=== PATIENT | male | born 1955 | race Caucasian/White ===

== ENCOUNTER 2016-07-03 15:15 | Inpatient (IN) | payer OTHER ==
[~2016-07-03] VITALS: Ht 172.7 cm; Wt 83.9 kg
[2016-07-03] VITALS (7 sets, daily range): BP systolic 116–156; BP diastolic 70–92
[~2016-07-03 15:15] MED LIST: AMLODIPINE BESYL5 M1 PO; DIAZEPAM5 M1 PO; ESCITALOPRAM OX20 MG PO; FOLIC ACID1 M1 PO; GABAPENTIN300 M2 PO; MORPHINE SULFAT15 M3 PO; ONE DAILY MULT1 EAC2 PO; PANTOPRAZOLE SO40 M1 PO; PRAVASTATIN SOD80 M2 PO; TYLENOL325 M1 PO; VITAMIN B-1100 MG PO
--- NOTE | 2016-07-03 15:42 | NUR ---
PT TO TRIAGE WITH C/O UPPER ABD PAIN 10/10 SINCE THIS MORNING, NAUSEA, VOMITING 2 DAYS AGO, DIARRHEA THIS MORNING, AND MIDDLE BACK PAIN. NO OTHER COMPLAINTS. HX OF PANCREATITIS. PT AMB TO ROOM7.
[2016-07-03] MEDS ORDERED: AMLODIPINE BESY10 M1 PO (16:04)
[2016-07-03] MEDS ORDERED: GABAPENTIN300 M2 PO (16:04)
[2016-07-03 16:12] LABS: ABSOLUTE BASOPHIL COUNT 0.1 /CUMM (0.0-0.2); ABSOLUTE EOSINOPHIL COUNT 0.1 /CUMM (0.0-0.7); ABSOLUTE LYMPH COUNT 1.5 /CUMM (1.2-3.4); ABSOLUTE MONOCYTE COUNT 0.7 /CUMM (0.10-0.60); EOSINOPHIL % 0.9 % (0-5); GRANULOCYTE % 77.2 % (42.2-75.2); HEMATOCRIT 43.2 % (42-52); MEAN CORPUSCULAR HGB 31.3 PG (27.0-31.0); MEAN CORPUSCULAR HGB CONC 34.5 G/DL (33.0-37.0); MEAN CORPUSCULAR VOLUME 90.6 FL (80.0-94.0); MEAN PLATELET VOLUME 6.8 FL (7.4-10.4); PLATELET COUNT 273 /CUMM (130-400); RBC DISTRIBUTION WIDTH 13.3 % (11.5-14.5); RED BLOOD CELL CT 4.77 /CUMM (4.70-6.10); WHITE BLOOD CELL COUNT 10.4 /CUMM (4.8-10.8)
--- NOTE | 2016-07-03 16:16 | NUR ---
PRESENTS TO RM 7 61 YR MALE HX OF PANCREATITIS REPORTS ABD PAIN AND VOMITING SINCE 2 AM REPORTS HX OF SAME PATIENT VERY ANXIOUS IV MED LOCK EST 20 LEFT AC B/W OBTAINED SENT SEEN BY ER MD MEDICATED W/ 4 MG ZOFRAN , 4 MG MORPHINE IV 1000 ML NS AT BOLUS
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
--- NOTE | 2016-07-03 16:36 | NUR ---
12/23 PAIN RE-EVAL BY TRISTON BROWN
--- NOTE | 2016-07-03 16:39 | NUR ---
CRITICAL TEST RESULTS [id number] МАРИНА ROCHA TESTS AND RESULTS: LACTIC ACID 3.3 Results received and read back by: CHELLY DAVIS Results received date and time: 07/03/16 4021 The following provider was notified of the results, and read the results back: MANUELA PEREIAR MD Notified date and time: 07/03/16 at 7366
--- NOTE | 2016-07-03 16:47 | NUR ---
PATIENT GIVEN; 2ND LITER NS 1000 ML AT BOLUS 5 MG VALIUM IVP 2 MG MORPHINE IVP
--- NOTE | 2016-07-03 16:53 | NUR ---
TO CT SCAN
--- NOTE | 2016-07-03 17:27 | NUR ---
QUEENIE GOLDSTEIN MD
--- NOTE | 2016-07-03 17:41 | CT SCAN REPORT ---
EXAMINATION: CT ABDOMEN AND PELVIS WITH CONTRAST CLINICAL INFORMATION: Elevated lipase. Elevated lactic acid. COMPARISON: CT abdomen and pelvis 03/17/2016. TECHNIQUE: Multidetector volumetric imaging was performed of the abdomen and pelvis before and after the IV administration of 94 mL of Optiray 320 intravenous contrast. Sagittal and coronal reformatted images were obtained on the technologist's workstation. DLP: 474 mGy-cm FINDINGS: LUNG BASES: Mild dependent parenchymal changes. Small hiatal hernia. LIVER, GALLBLADDER, AND BILIARY TREE: Decreased hepatic radiodensity consistent with steatosis. Unchanged subcentimeter enhancing lesion within Couinaud's segment 6, nonspecific and possibly representing a hemangioma. No new hepatic lesion. The common bile duct measures 0.8 cm. No evidence of cholelithiasis or choledocholithiasis. PANCREAS: There is diffuse peripancreatic stranding. Fluid tracks along the pararenal space along the anterior aspect of the left perinephric space. No discrete/drainable fluid collection. No pancreatic ductal dilatation. No discrete pancreatic mass lesion. No areas of pancreatic nonenhancement to diagnose necrosis. SPLEEN: Unremarkable. ADRENAL GLANDS: Unremarkable. KIDNEYS AND URETERS: Bilateral nephrograms are symmetric without hydronephrosis. Hypodense renal lesions are again noted, most consistent with cysts. No renal or ureteral calculi. No new suspicious renal mass. BLADDER: Unremarkable. GASTROINTESTINAL TRACT: Bowel gas pattern is nonobstructive. No evidence of acute bowel inflammation. Scattered colonic diverticula without evidence of diverticulitis. The appendix is normal. ABDOMINAL WALL: No significant hernia is appreciated. LYMPH NODES: No pathologically enlarged lymph nodes are demonstrated. VASCULAR: Scattered atherosclerotic calcification. The splenic vein is patent. PELVIC VISCERA: Unremarkable. OSSEOUS STRUCTURES: No acute osseous abnormalities. Left-sided L5 pars defect. Degenerative disc disease at L5-S1 with vacuum phenomenon. IMPRESSION: Findings consistent with pancreatitis. Mildly dilated common bile duct without visualized choledocholithiasis or cholelithiasis. Nonacute findings as described above.
--- NOTE | 2016-07-03 18:10 | NUR ---
INFUSION COMPLETED PATIENT REQUEST TO SPEAK W/ MD
--- NOTE | 2016-07-03 18:34 | NUR ---
PATIENT VOIDED 280 ML URINE IV #4 1000 ML NS
--- NOTE | 2016-07-03 18:59 | NUR ---
RE-EVAL BY ER MD DIAZ PATIENT MEDICATED W/ ATIVAN AND DIALUDID IV PATIENT REMAINS ALERT ORIENTED STILL C/O PAIN NO VOMITING , NO AMS MONITOR REMAINS ST W/O ECTOPY
--- NOTE | 2016-07-03 19:20 | NUR ---
EVAL BY HOUSE STAFF
[2016-07-03] MEDS ORDERED: VALIUM5 M2 PO (19:24)
--- NOTE | 2016-07-03 19:25 | RADIOLOGY REPORT ---
EXAMINATION: XR CHEST PORTABLE CLINICAL INFORMATION: Nausea and vomiting. Shortness of breath requiring oxygen. COMPARISON: None. TECHNIQUE: Portable AP view of the chest was obtained. FINDINGS: The lungs are mildly hypoexpanded. Question mild left basilar opacification. No pulmonary edema, pleural effusion, or pneumothorax. No mediastinal widening. No acute osseous abnormalities. IMPRESSION: Mildly hypoexpanded lungs. Questionable left basilar opacification may represent atelectasis or other consolidation.
--- NOTE | 2016-07-03 19:41 | Admission Certification ---
Admission Certification Certification Statement - As attending physician, I certify that at the time of - admission, based on clinical presentation, severity of - symptoms, need for further diagnostic testing and - therapeutic interventions, and risk of adverse outcomes - without in-hospital treatment, in my clinical assessment, - this patient requires an acute hospital stay for a minimum - of two nights or longer. I have also considered psychsocial - factors such as support system, advanced age, financial - issues, cognitive issues, and failed out-patient treatments, - past re-admission history, safety of patient, and lack of - compliance as applicable. Specific rationale supporting this admission is: Acute pancreatitis, alcohol withdrawal.
--- NOTE | 2016-07-03 20:10 | NUR ---
PT GOING TO ROOM 21602.
--- NOTE | 2016-07-03 20:24 | NUR ---
REPORT GIVEN TO FLOOR PATIENT STABLE ALERT WHEN WOKEN MONITOR ST W/O ECTOPY
[2016-07-03] MEDS ORDERED: BYSTOLIC5 M1 PO (21:02)
[2016-07-03] MEDS ORDERED: RISPERIDONE1 M1 PO (21:02)
--- NOTE | 2016-07-03 21:15 | NUR ---
RECEIVED PATIENT FROM ED. DROWSY BUT AROUSABLE (WAS MEDICATED IN ED). VSS, TACHY, ON 2L NC. CIWA ZERO AT PRESENT. ABODMEN SOFT, COMPLAINING OF PAIN TO LOWER ABDOMEN. NO NAUSEA AT THIS TIME. PT IS NPO. NO HISTORY OF FALLS, UP TO DATE ON FLU VACCINE. ORIENTED TO 2NB, CALL RUBIO WITHIN REACH
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
--- NOTE | 2016-07-04 04:04 | NUR ---
NURSING NOTE: PT C/O PAIN, PT STATES HE IS HAVING STABBING PAIN TO HIS STOMACH. PT OFFERED PO TYLENOL AT THIS TIME BECAUSE IT IS TOO SOON FOR ANOTHER DOSE OF MORPHINE. RESIDENTIAL REAL ESTATE ASSISTANT 176 MADE AWARE AND DOES NOT WISH TO ORDER ANY ADDITIONAL PAIN MEDS AT THIS TIME. WILL GIVE PT MORPHINE WHEN NEXT DUE. WILL CONTINUE TO MONITOR.
--- NOTE | 2016-07-04 05:30 | NUR ---
NURSING NOTE: PT STATES "I CAN'T GO ON LIKE THIS, I AM ABOUT TO JUMP OUT THIS WINDOW OVER HERE I AM IN SO MUCH PAIN". PT WAS MEDICATED WITH IV MORPHINE AND IV TYLENOL AN HOUR BEFORE. PT STATES "I GOT BETTER CARE WHEN I WAS HERE IN MARCH". CORRECTIONAL MEDICINE PHYSICIAN 176 WAS CALLED AND NOTIFIED THAT PATIENT IS STILL C/O PAIN 10/10 W/ NO RELIEF AND PT ASKING MD TO COME SEE HIM. CORRECTIONAL MEDICINE PHYSICIAN CAME TO SPEAK WITH PATIENT. PT STILL VERY AGITATED. CIWA 16, 2 MG IV IATIVAN GIVEN. SCHEDULED PO ATIVAN HELD PER CORRECTIONAL MEDICINE PHYSICIAN 176 REQUEST UNTIL "PATIENT IS MORE CALM" WARM PACK GIVEN. EMOTIONAL SUPPORT GIVEN. WILL CONTINUE TO MONITOR.
[2016-07-04 08:00] VITALS: BP 140/90
--- NOTE | 2016-07-04 08:13 | PN- Housestaff ---
Subjective Follow-up For: - pancreatitis Review of Systems Constitutional: Reports: see HPI. Objective Last 24 Hrs of Vital Signs/I&O Vital Signs Date Time Temp Pulse Resp B/P Pulse O2 O2 Flow FiO2 Ox Delivery Rate 07/04 0000 Nasal 2.0L Cannula 07/03 2359 97.6 117 20 156/92 92 07/03 2330 97.6 117 20 156/92 07/03 2106 97 Nasal 2.0L Cannula 07/03 2104 97.8 112 17 118/92 93 Nasal 2.0L Cannula 07/03 202 97.8 106 18 134/78 07/03 1919 97.8 108 18 138/70 07/03 1833 104 18 132/80 96 Nasal 3.0L Cannula 07/03 1733 105 20 137/80 95 Nasal 3.0L Cannula 07/03 1713 106 18 133/80 95 Nasal 3.0L Cannula 07/03 1648 97.7 106 18 116/80 07/03 1648 97.7 106 18 116/80 95 Nasal 2.0L Cannula 07/03 1620 98.0 108 18 128/86 07/03 1616 108 20 128/78 94 Room Air 07/03 1536 98.7 130 20 137/82 95 Room Air Intake & Output 07/04 1600 07/04 0800 07/04 0000 Intake Total 1200 4300 Output Total 800 280 Balance 400 4020 Intake, IV 1200 4300 Intake, Oral 0 Output, Urine 800 280 Patient 158 lb Weight Physical Exam General Appearance: No Acute Distress Current Medications: Current Medications Sig/Fabiola Start time Last Medication Dose Route Stop Time Status Admin Acetaminophen 1,000 MG ONCE ONE 07/04 0415 DC 07/04 N/A 1 UNIT IV 07/04 0429 0445 Acetaminophen 650 MG Q6-PRN PRN 07/035 AC PO Amlodipine Besylate 10 MG DAILY 07/04 1000 AC PO Diazepam 0 .STK-MED ONE 07/03 1641 DC .ROUTE Diazepam 5 MG ONCE ONE 07/03 1630 DC 07/03 IV 07/03 1631 1643 Enoxaparin Sodium 40 MG DAILY 07/04 1000 AC SC Escitalopram Oxalate 20 MG DAILY 07/04 1000 AC PO Folic Acid 1 MG DAILY 07/04 1000 CAN PO Folic Acid 1 MG DAILY 07/04 1000 AC PO Gabapentin 300 MG DAILY 07/04 1000 AC PO Gemfibrozil 600 MG BID 07/03 2300 CAN PO Heparin Sodium 5,000 UNIT Q8 07/03 2200 CAN (Porcine) SC Hydromorphone HCl 0 .STK-MED ONE 07/03 1851 DC .ROUTE Hydromorphone HCl 1 MG ONCE ONE 07/03 1845 DC 07/03 IV 07/03 1846 1857 Hydromorphone HCl 0 .STK-MED ONE 07/03 1817 DC .ROUTE Hydromorphone HCl 0.4 MG ONCE ONE 07/03 1800 DC 07/03 IV 07/03 1801 1832 Lactated Ringer's 1,000 ML Q6H 07/03 2145 AC 07/04 IV 0455 Lactated Ringer's 1,000 ML Q6H 07/03 2100 DC IV Lorazepam 2 MG Q6 07/04 0600 AC PO Lorazepam 0 .STK-MED ONE 07/03 1850 DC .ROUTE Lorazepam 0 Q1P PRN 07/03 1845 AC 07/04 IV 0637 Magnesium Oxide 400 MG ONE ONE 07/03 2230 DC 07/03 PO 07/03 2231 2339 Morphine Sulfate 2 MG Q6-PRN PRN 07/03 2215 AC 07/04 IV 0451 Morphine Sulfate 2 MG Q4P PRN 07/03 2100 DC IV Morphine Sulfate 2 MG ONCE ONE 07/03 1645 DC 07/03 IV 07/03 1646 1643 Morphine Sulfate 0 .STK-MED ONE 07/03 1640 DC .ROUTE Morphine Sulfate 4 MG ONCE ONE 07/03 1600 DC 07/03 IV 07/03 1601 1607 Morphine Sulfate 0 .STK-MED ONE 07/03 1553 DC .ROUTE Multivitamins 1 TAB DAILY 07/04 1000 CAN PO Multivitamins 1 TAB DAILY 07/04 1000 AC Therapeutic PO Nebivolol 5 MG DAILY 07/04 1000 AC PO Omeprazole 40 MG DAILY AC 07/04 0700 CAN PO Ondansetron HCl 4 MG ONCE ONE 07/03 1600 DC 07/03 IV 07/03 1601 1607 Ondansetron HCl 0 .STK-MED ONE 07/03 1554 DC .ROUTE Pantoprazole Sodium 40 MG DAILY 07/03 2230 AC 07/03 IV 2339 Pravastatin Sodium 80 MG 1700 07/04 1700 CAN PO Risperidone 1 MG BID 07/03 2200 AC 07/03 PO 2339 Sodium Chloride 1,000 ML Q6H 07/03 2145 CAN IV Sodium Chloride 1,000 ML BOLUS ONE 07/03 1630 DC 07/03 IV 07/03 1729 1643 Sodium Chloride 1,000 ML BOLUS ONE 07/03 1600 DC 07/03 IV 07/03 1659 1607 Thiamine HCl 100 MG DAILY 07/04 1000 CAN PO Thiamine HCl 100 MG DAILY 07/04 1000 AC PO Trimethobenzamide HCl 200 MG 4 TIMES/DAY PRN 07/03 2145 AC IM Last 24 Hrs of Lab/Felix Results Last 24 Hrs of Labs/Mics: Laboratory Tests 07/04/16 0640: Sodium Pending, Potassium Pending, Chloride Pending, Carbon Dioxide Pending, Anion Gap Pending, BUN Pending, Creatinine Pending, BUN/Creatinine Ratio Pending , Magnesium Pending, Total Bilirubin Pending, Direct Bilirubin Pending, AST Pending, ALT Pending, Alkaline Phosphatase Pending, Total Protein Pending, Albumin Pending, Triglycerides Pending, Cholesterol Pending, LDL Cholesterol, Calc Pending, HDL Cholesterol Pending, Cholesterol/HDL Ratio Pending, CBC w Diff Pending, WBC Pending, RBC Pending, Hgb Pending, Hct Pending, MCV Pending, MCH Pending, RDW Pending, Plt Count Pending, MPV Pending, PUBS MCHC Pending 07/03/164: Troponin I < 0.01 07/03/161934: Urine Opiates Screen > 4000.00 H, Methadone Screen 53, Barbiturate Screen < 60, Ur Phencyclidine Scrn < 6.00, Amphetamines Screen < 100, U Benzodiazepines Scrn 499 H, Urine Cocaine Screen < 50, Urine Cannabis Screen 17.80, Urine Color YEL, Urine Clarity CLEAR, Urine pH 6.0, Ur Specific [place] 1.010, Urine Protein NEG, Urine Ketones NEG, Urine Nitrite NEG, Urine Bilirubin NEG, Urine Urobilinogen 0.2, Ur Leukocyte Esterase NEG, Ur Microscopic SEDIMENT EXAMINED, Urine RBC 50- 75 H, Urine WBC RARE, Ur Epithelial Cells RARE, Hyaline Casts FEW H, Granular Casts RARE H, Urine Hemoglobin LARGE H, Urine Glucose NEG 07/03/16 1930: Lactic Acid 1.0 07/03/16 1600: Anion Gap 17 H, Estimated GFR > 60, BUN/Creatinine Ratio 15.0, Glucose 107 H, Lactic Acid 3.3 H, Calcium 9.2, Magnesium 1.7, Total Bilirubin 1.1, AST 129 H, ALT 61, Alkaline Phosphatase 140 H, Troponin I < 0.01, Total Protein 7.9, Albumin 4.2, Globulin 3.7, Albumin/Globulin Ratio 1.1, Triglycerides 1363 H, Cholesterol 319 H, LDL Cholesterol, Calc ND, HDL Cholesterol 62 H, Cholesterol /HDL Ratio 5 H, Lipase 559 H, CBC w Diff NO MAN DIFF REQ, RBC 4.77, MCV 90.6, MCH 31.3 H, RDW 13.3, MPV 6.8 L, Gran % 77.2 H, Lymphocytes % 14.5 L, Monocytes % 6.4, Eosinophils % 0.9, Basophils % 1.0, Absolute Granulocytes 8.0 H, Absolute Lymphocytes 1.5, Absolute Monocytes 0.7 H, Absolute Eosinophils 0.1 , Absolute Basophils 0.1, PUBS MCHC 34.5, Serum Alcohol < 10.0
[2016-07-04 08:45] LABS: ABSOLUTE BASOPHIL COUNT 0 /CUMM (0.0-0.2); ABSOLUTE EOSINOPHIL COUNT 0 /CUMM (0.0-0.7); ABSOLUTE LYMPH COUNT 0.7 /CUMM (1.2-3.4); ABSOLUTE MONOCYTE COUNT 0.6 /CUMM (0.10-0.60); BASOPHIL % 0.3 % (0.0-2.0); EOSINOPHIL % 0.5 % (0-5); WHITE BLOOD CELL COUNT 6.4 /CUMM (4.8-10.8)
[2016-07-04 08:58] LABS: GRANULOCYTE % 78.4 % (42.2-75.2); MEAN CORPUSCULAR HGB 31.2 PG (27.0-31.0); MEAN CORPUSCULAR HGB CONC 34.2 G/DL (33.0-37.0); MEAN CORPUSCULAR VOLUME 91.1 FL (80.0-94.0); PLATELET COUNT 195 /CUMM (130-400); RBC DISTRIBUTION WIDTH 13.9 % (11.5-14.5); RED BLOOD CELL CT 3.91 /CUMM (4.70-6.10)
[2016-07-04 09:01] LABS: HEMATOCRIT 35.6 % (42-52)
[2016-07-04 09:19] VITALS: BP 144/90
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
--- NOTE | 2016-07-04 11:31 | PN- Att Addend ---
Attending Addendum Attending Brief Note Patient seen and examined. Lying in bed and not in acute distress. Admitted overnight for alcohol related pancreatitis. Denies nausea vomiting. Reports abdominal discomfort is improved with analgesic medication. Tolerating liquid diet. Vital Signs Date Time Temp Pulse Resp B/P Pulse O2 O2 Flow FiO2 Ox Delivery Rate 07/04 1049 112 140/90 07/04 0928 124 140/90 07/04 0919 98.5 124 20 144/90 92 Nasal 2.0L Cannula 07/04 0000 Nasal 2.0L Cannula 07/03 2359 97.6 117 20 156/92 92 07/03 2330 97.6 117 20 156/92 07/03 2106 97 Nasal 2.0L Cannula 07/03 2104 97.8 112 17 118/92 93 Nasal 2.0L Cannula 07/03 2025 97.8 106 18 134/78 07/03 1919 97.8 108 18 138/70 07/03 1833 104 18 132/80 96 Nasal 3.0L Cannula 07/03 1733 105 20 137/80 95 Nasal 3.0L Cannula 07/03 1713 106 18 133/80 95 Nasal 3.0L Cannula 07/03 1648 97.7 106 18 116/80 02 1648 97.7 106 18 116/80 95 Nasal 2.0L Cannula 07/03 1620 98.0 108 18 128/86 07/03 1616 108 20 128/78 94 Room Air 07/03 1536 98.7 130 20 137/82 95 Room Air Gen. appearance: Well-developed, not in acute distress Heart: S1-S2 regular Lungs: Good entry bilaterally, clear to auscultation Abdomen: Soft, nontender with normal bowel sounds Extremities: No pedal edema Skin: Intact with no rashes Neurologic: No focal deficits. No tremors. Problems: 1. Pancreatitis 2. Hypertriglyceridemia 3. Alcohol abuse Plan: -Continue IV fluids. Continue current pain regimen. -Continue current CIWA protocol. Overnight he required 5 mg total of Ativan in addition to his standing dose. -Triglyceride levels have improved overnight with hydration. In March triglyceride level was 176. Overnight levels have decreased from 1363 to 473. Recommend repeating levels prior to discharge and basing decision for medication therapy on those levels. -He will need evaluation by the social service manager prior to discharge
--- NOTE | 2016-07-04 11:59 | NUR ---
LATE ENTRY: LOVENOX ON ORDER FOR PT YET PT HAS HX OF BRAIN AND CAROTID ANEURYSM. PER PT, HE WAS TOLD NOT TO RECEIVE ANY "BLOOD THINNERS." MOD DR. VEGAS CONTACTED. SEE D/C OF MED. ALPS IN USE. WILL CONT TO MONITOR.
[2016-07-04 16:49] VITALS: BP 138/94
[2016-07-05] VITALS: BP 152/88
[2016-07-05 00:25] VITALS: BP 152/88
[2016-07-05 03:00] VITALS: BP 150/90
[2016-07-05 04:00] VITALS: BP 150/90
--- NOTE | 2016-07-05 05:17 | NUR ---
LATE ENTRY: PT INCREASINGLY AGITATED AND ANXIOUS. KEPT GETTING OOB AND PULLING ON IV LINE. PT SAFETY MONITOR ORDERED FOR SAFTEY.
--- NOTE | 2016-07-05 07:45 | PN- Housestaff ---
MACI BROWN,XIOMARA 07/05/16 0744: Subjective Follow-up For: Pancreatitis 2/2 alcohol, hypertriglycemia Complaints: pain scale (0-10) (8/10) Subjective: Pt c/o Rt. upper / epigastric cancer radiating to back, 8/10 when moving, 7/10 while resting. He was tolerating breakfast this morning, clear liquid diet. Review of Systems Constitutional: Reports: malaise. Denies: chills, diaphoresis, fever, weakness. EENTM: Reports: no symptoms. Cardiovascular: Reports: no symptoms. Respiratory: Reports: no symptoms. Gastrointestinal: Reports: abdominal pain, nausea. Denies: diarrhea, vomiting. Genitourinary: Reports: no symptoms. Musculoskeletal: Reports: back pain. Skin: Reports: no symptoms. Neurological/Psychological: Reports: anxiety, confusion. Hematologic/Endocrine: Reports: no symptoms. Objective Last 24 Hrs of Vital Signs/I&O Vital Signs Date Time Temp Pulse Resp B/P Pulse O2 O2 Flow FiO2 Ox Delivery Rate 07/05 1121 96 130/86 07/05 1120 96 130/86 07/05 0817 97.9 100 20 140/80 93 Nasal 2.0L Cannula 07/05 0400 97.9 95 20 150/90 07/05 0300 98.2 99 20 150/90 07/05 0025 98.0 107 20 152/88 93 07/05 0000 Nasal 2.0L Cannula 07/05 0000 99.1 96 20 152/88 07/04 1649 98.2 107 24 138/94 94 Room Air 07/04 1412 Nasal 2.0L Cannula Intake & Output 07/05 1600 07/05 0800 07/05 0000 Intake Total 1320 Output Total 400 825 700 Balance -400 495 -700 Intake, IV 1200 Intake, Oral 120 Output, Urine 400 825 700 Physical Exam General Appearance: Oriented X3, Cooperative, No Acute Distress, pt was sleeping in the bed, but awake with conversation Skin: No Rashes, No Breakdown, No Significant Lesion HEENT: PERRLA, EOMI, Mucous Membr. moist/pink Neck: Supple, No JVD, No LAD Cardiovascular: Regular Rate, Normal S1, Normal S2, No Murmurs Lungs: Clear to Auscultation, Normal Air Movement Abdomen: Normal Bowel Sounds, Soft, RUQ tenderness +, no rTd, obese abdomen Neurological: Normal Speech, Strength at 5/5 X4 Ext, Normal Tone, Sensation Intact Extremities: No Cyanosis, No Edema, Normal Pulses Vascular: Normal Pulses, Pulses Symmetrical Current Medications: Current Medications Sig/Fabiola Start time Last Medication Dose Route Stop Time Status Admin Acetaminophen 650 MG Q6-PRN PRN 07/03 2115 AC PO Amlodipine Besylate 10 MG DAILY 07/04 1000 AC 07/05 PO 1120 Escitalopram Oxalate 20 MG DAILY 07/04 1000 AC 07/05 PO 1119 Folic Acid 1 MG DAILY 07/04 1000 AC 07/05 PO 1119 Gabapentin 300 MG DAILY 07/04 1000 AC 07/05 PO 1120 Lactated Ringer's 1,000 ML Q6H 07/03 2145 AC 07/05 IV 0658 Lorazepam 2 MG .STK-MED ONE 07/05 0245 DC IM 07/05 0246 Lorazepam 2 MG Q6 07/04 0600 AC 07/05 PO 1121 Lorazepam 0 Q1P PRN 07/03 1845 AC 07/05 IV 0256 Morphine Sulfate 2 MG Q6-PRN PRN 07/03 2215 AC 07/05 IV 0652 Multivitamins 1 TAB DAILY 07/04 1000 AC 07/05 Therapeutic PO 1120 Nebivolol 5 MG DAILY 07/04 1000 AC 07/05 PO 1121 Pantoprazole Sodium 40 MG DAILY 07/03 2230 AC 07/05 IV 1121 Risperidone 1 MG BID 07/03 2200 AC 07/05 PO 1120 Thiamine HCl 100 MG DAILY 07/04 1000 AC 07/05 PO 1121 Trimethobenzamide HCl 200 MG 4 TIMES/DAY PRN 07/03 2145 AC IM Last 24 Hrs of Lab/Felix Results Last 24 Hrs of Labs/Mics: Laboratory Tests 07/05/16 0650: Anion Gap 9, Estimated GFR > 60, BUN/Creatinine Ratio 10.0, Total Bilirubin 0.9, Direct Bilirubin 0.5 H, AST 34, ALT 29, Alkaline Phosphatase 94, Total Protein 5.8 L, Albumin 3.0 L Orders CIWA Score (last 24 hrs): 16-6-4 Lines/Diet/Fluids Lines: peripheral lines Assessment/Plan Assessment: 61 yo male with pmh of chronic alcohol abuse complicated by multiple episodes of pancreatitis, HTN, brain aneurysm (2011), viral meningitis (2012), anxiety/ depression, renal cysts, who was previously admitted for acute pancreatitis in Mar 2016, was brought in with a chief complaint of epigastric abdominal pain radiating to the back 3 days ago with nausea/nonbloody vomiting/diarrhea. reports that patient started drinking soon after he was discharged in March. Drinks 4-5 glasses of rum/beer/wine everyday, last drink 7 pm one day prior to admission. Quit smoking Feb 2016, denies illicit drug use. 1. Acute pancreatitis likely secondary to alcohol abuse: No fever/leukocytosis. BISAP 0. CT suggests pancreatitis with stranding. LR was continued from admission, decreased from 100cc/to 75cc/hr now. On IV morphine 2mg q6prn for pain control, pt is not well controlled, will increase to q4prn. po/IV ativan for alcohol withdrawal. NPO for now to check on RUQ abdomen to evaluate mildly dilated CBD. 2. Hypertriglyemia: TG was improved from 1363 to 473. Will repeat lipid panel before discharge. 3. Alcohol abuse & depression: Patient is on po ativan 2mg q6 and IV ativan CIWA protocol requiring 14mg total ativan. CIWA 16-6-4. Psychiatry consult is appreciated. According to psy note, the patient reports a history of depressive symptomatology including poor energy, poor concentration, feelings of hopelessness and worthlessness, disrupted sleep, dating back to about 3 or 4 years ago when his aneurysms were diagnosed. He reports at that time undergoing treatment with Dr. Haq, but he has not seen Dr. Haq since February 2016. He continues to be prescribed antidepressant medication by his primary care physician. Patient denies current SI or HI. Continue lexapro and risperidone for now. Pt is on sitter for risky ambulation. 4. HTN: BP stable. C/w nebivolol, norvasc home dose 5. Transaminitis: resolved. 6. Hypokalemia: 3.1, will replete potassium with Mg. DVT ppx: ALPS, full code. Problem List: 1. Pancreatitis, acute 2. Depression 3. Alcohol withdrawal Pain Ratin Pain Location: epigastric pain Pain Goal: Pain 7 or less Pain Plan: IV morphine 2mg q6 prn -> q4prn Tomorrow's Labs & Rationales: BEP, mg DVT/Prophylaxis: mechanical Discharge Plan Stable for Discharge? No ANDRA GONZALEZ MD 07/05/16 1347: Attending MD Review Statement Attending Statement Attending MD Statement: examined this patient, discuss w/resident/PA/ARC AND GAS WELDER, agreed w/resident/PA/ARC AND GAS WELDER, reviewed EMR data (avail), discussed with nursing, amended to note Attending Assessment/Plan: The patient was seen and discussed with house staff. Agree with plan of care as outlined.
[2016-07-05 08:17] VITALS: BP 140/80
--- NOTE | 2016-07-05 17:06 | ULTRASOUND REPORT ---
EXAMINATION: US ABDOMEN LIMITED CLINICAL INFORMATION: Bilateral dilatation seen on CT scan. Evaluate for common bile duct stone. COMPARISON: CT scan of the abdomen and pelvis dated 07/03/2016. Ultrasound of the abdomen dated 03/17/2016. TECHNIQUE: Real-time imaging of the right upper quadrant abdominal viscera. FINDINGS: PANCREAS: The pancreatic body and portions of the head and tail are visualized and appear echogenic, suggesting pancreatic edema. There is surrounding mild peripancreatic edema noted. Remainder of the pancreas is not seen due to shadowing by bowel gas. LIVER: Diffusely increased liver echogenicity is noted, consistent with hepatic steatosis. The liver demonstrates normal size, contour and echogenicity. No focal lesion or intrahepatic biliary duct dilatation. GALLBLADDER: Normal. The gallbladder is physiologically distended without evidence of stones, sludge, polyps, wall thickening or pericholecystic fluid. COMMON BILE DUCT: Dilated in caliber measuring 0.9 cm in diameter. Visualized portions of the common bile duct are unremarkable otherwise with no filling defect seen. Distal common bile duct in the pancreatic head is not visualized. RIGHT KIDNEY: There is a 1.8 x 1.0 x 1.4 cm parapelvic cyst in the upper pole of the right kidney. Several other right renal cysts seen on CT scan are not appreciated on this ultrasound No hydronephrosis. No renal calculi. The kidney measures 12.0 cm in maximum dimension. FREE FLUID: None. IMPRESSION: 1. Above findings are consistent with acute pancreatitis with mild peripancreatic stranding seen. Findings correspond to the CT scan findings. 2. Dilated common bile duct is visualized, similar to prior CT scan. In the visualized portions of the common bile duct, no evidence of choledocholithiasis is seen. 3. No gallstones. 4. Only one of the several previously demonstrated renal cysts is seen on this exam.
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
[2016-07-05 21:26] VITALS: BP 116/70
[2016-07-06] VITALS: BP 116/70
--- NOTE | 2016-07-06 | NUR ---
NURSING NOTE: PT ON 1.5 MG ATIVAN TAPER. PT REFUSED HIS MIDNIGHT ATIVAN. CIWA SCORE ZERO. PT CALM AND COOPERATIVE. PSM AT BEDSIDE WILL CONTINUE TO MONITOR.
--- NOTE | 2016-07-06 07:58 | PN- Housestaff ---
MACI BROWN,XIOMARA 07/06/16 0752: Subjective Follow-up For: Acute pancreatitis 2/2 alcohol Hypertriglycemia Dilated bile duct Depression Complaints: pain scale (0-10) (8/10) Subjective: He was eating breakfast this morning, but c/o abdominal pain radiating to back with 8/10 pain. He denies any nausea/vomiting, chest pain/shortness of breath. He has chronic headache after brain aneurysm clipping for 2 years. 1:1 sitter is present at bedside for his risky ambulation. He wants to follow up psychiatry after discharge for depression and alcohol abuse. Review of Systems Constitutional: Denies: chills, fever, weakness. EENTM: Reports: no symptoms. Cardiovascular: Denies: chest pain, palpitations, peripheral edema, syncope. Respiratory: Denies: cough, short of breath, sputum production, wheezing. Gastrointestinal: Reports: abdominal pain, bloating. Denies: diarrhea, nausea, vomiting. Genitourinary: Reports: no symptoms. Musculoskeletal: Reports: back pain. Skin: Reports: no symptoms. Neurological/Psychological: Reports: no symptoms. Hematologic/Endocrine: Reports: no symptoms. Objective Last 24 Hrs of Vital Signs/I&O Vital Signs Date Time Temp Pulse Resp B/P Pulse O2 O2 Flow FiO2 Ox Delivery Rate 07/06 0002 98.3 98 18 89 Room Air 07/06 0000 Nasal 2.5L Cannula 07/06 0000 98.3 98 18 116/70 07/05 2126 98.3 101 20 116/70 91 Nasal 1.0L Cannula 07/05 1121 96 130/86 07/05 1120 96 130/86 07/05 0817 97.9 100 20 140/80 93 Nasal 2.0L Cannula 07/05 0800 94 Nasal 1.5L Cannula Intake & Output 07/06 0800 07/06 0000 07/05 1600 Intake Total 225 1080 Output Total 800 Balance 225 280 Intake, IV 225 600 Intake, Oral 480 Output, Urine 800 Patient 185 lb Weight Physical Exam General Appearance: Alert, Oriented X3, Cooperative, Mild Distress Skin: No Rashes, No Breakdown, No Significant Lesion HEENT: Atraumatic, PERRLA, EOMI, Mucous Membr. moist/pink Neck: Supple, No JVD, No LAD Lymphatic: Cervical nl Cardiovascular: Regular Rate, Normal S1, Normal S2, No Murmurs Lungs: Clear to Auscultation, Normal Air Movement Abdomen: Normal Bowel Sounds, Soft, Tenderness on RUQ, LUQ, no rTd Neurological: Normal Speech, Strength at 5/5 X4 Ext, Normal Tone, Sensation Intact, Cranial Nerves 3-12 NL Extremities: No Edema, Normal Pulses, No Tenderness/Swelling Vascular: Normal Pulses, Pulses Symmetrical Current Medications: Current Medications Sig/Fabiola Start time Last Medication Dose Route Stop Time Status Admin Acetaminophen 650 MG Q6-PRN PRN 07/03 2115 AC PO Amlodipine Besylate 10 MG DAILY 07/04 1000 AC 07/05 PO 1120 Escitalopram Oxalate 20 MG DAILY 07/04 1000 DC 07/05 PO 1119 Folic Acid 1 MG DAILY 07/04 1000 AC 07/06 PO 0921 Gabapentin 300 MG DAILY 07/04 1000 AC 07/06 PO 0922 Lactated Ringer's 1,000 ML Q6H 07/03 2145 AC 07/06 IV 0602 Lorazepam 1.5 MG Q6 07/05 2359 AC 07/06 PO 0602 Lorazepam 2 MG Q6 07/04 0600 DC 07/05 PO 1714 Lorazepam 0 Q1P PRN 07/03 1845 AC 07/05 IV 0256 Magnesium Sulfate 1 GM ONCE ONE 07/05 1345 DC 07/05 Dextrose/Water 100 ML IV 07/05 1744 1622 Morphine Sulfate 2 MG Q6P PRN 07/06 1000 AC IV Morphine Sulfate 2 MG Q4P PRN 07/06 0000 DC 07/06 IV 0728 Morphine Sulfate 2 MG Q6-PRN PRN 07/03 2215 DC 07/05 IV 0652 Multivitamins 1 TAB DAILY 07/04 1000 AC 07/06 Therapeutic PO 0921 Nebivolol 5 MG DAILY 07/04 1000 AC 07/05 PO 1121 Oxycodone HCl 5 MG Q6P PRN 07/06 1000 AC PO Pantoprazole Sodium 40 MG DAILY 07/03 2230 AC 07/06 IV 0921 Patient Medication 1 UNIT 0000 07/06 0000 DC 07/05 Teaching ED 07/06 0001 2339 Potassium Chloride 40 MEQ ONCE ONE 07/06 0800 DC 07/06 PO 07/06 0801 0922 Potassium Chloride 60 MEQ 1700 07/05 1700 DC 07/05 PO 07/05 1701 1627 Potassium Chloride 10 MEQ Q1H 07/05 1345 DC 07/05 IV 07/05 1446 2206 Risperidone 1 MG BID 07/03 2200 DC 07/05 PO 1120 Thiamine HCl 100 MG DAILY 07/04 1000 AC 07/06 PO 0921 Trimethobenzamide HCl 200 MG 4 TIMES/DAY PRN 07/03 2145 AC IM Last 24 Hrs of Lab/Felix Results Last 24 Hrs of Labs/Mics: Laboratory Tests 07/06/16 0655: Anion Gap 8, Estimated GFR > 60, BUN/Creatinine Ratio 7.1, Magnesium 2.0, Total Bilirubin Pending, Direct Bilirubin Pending, AST Pending, ALT Pending, Alkaline Phosphatase Pending, Total Protein Pending, Albumin Pending Orders CIWA Score (last 24 hrs): 0-0-0-0-0 Lines/Diet/Fluids Lines: peripheral lines Assessment/Plan Assessment: 61 yo male with pmh of chronic alcohol abuse complicated by multiple episodes of pancreatitis, HTN, brain aneurysm (2011), viral meningitis (2012), anxiety/ depression, renal cysts, who was previously admitted for acute pancreatitis in Mar 2016, was brought in with a chief complaint of epigastric abdominal pain radiating to the back 3 days ago with nausea/nonbloody vomiting/diarrhea. reports that patient started drinking soon after he was discharged in March. Drinks 4-5 glasses of rum/beer/wine everyday, last drink 7 pm one day prior to admission. Quit smoking Feb 2016, denies illicit drug use. 1. Acute pancreatitis likely secondary to alcohol abuse: No fever/leukocytosis. BISAP 0. CT suggests pancreatitis with stranding. LR was continued from admission, decreased from 100cc/to 75cc/hr now for borderline BP. According to patient, pain is not well controlled. will add to po oxycodone q6prn with IV morphine 2mg q6prn. As pt has dilated common bile duct which was not seen in 2016, will get GI consult. Diet was advanced to full liquid diet. 2. Hypertriglyemia: TG was improved from 1363 to 473. Will repeat lipid panel before discharge. 3. Alcohol abuse & depression: Patient is on po ativan 1.5mg q6 and IV ativan CIWA protocol requiring po 7.5mg + IV 4mg, total 11.5mg ativan. CIWA has been stable 0-0-0-0-0. Psychiatry consult is appreciated. continue MV, thiamine, folate. According to psy note, the patient reports a history of depressive symptomatology including poor energy, poor concentration, feelings of hopelessness and worthlessness, disrupted sleep, dating back to about 3 or 4 years ago when his aneurysms were diagnosed. He reports at that time undergoing treatment with Dr. Haq, but he has not seen Dr. Haq since February 2016. He continues to be prescribed antidepressant medication by his primary care physician. Patient denies current SI or HI. Risperidone/lexapro were held due to hypokalemia/hypomagnesemia/QTc 475. Will restart these medications once ETOH detox is resolved. Pt is on sitter for risky ambulation. 4. HTN: now boderline BP with SBP 100s, hold nebivolol, norvasc for now. Pt is on IV LR @ 75cc/hr. 5. Dilated CBD: abdomen CT/US didn't show CBD stones but dilated common bile duct with renal cysts. LFT was normalized, increased direct bilirubin 0.5. Will get GI consult regarding this finding with contiuous pain with pancreatitis. 6. Hypokalemia: 3.1 was increased to 3.6, will replete further K today. Mg 2.0 today. DVT ppx: ALPS, full code. Problem List: 1. Pancreatitis, acute 2. Alcohol withdrawal Pain Ratin Pain Location: abdominal/epigastric pain radiating to back Pain Goal: Pain 7 or less Pain Plan: po oxycodone IV morphine Tomorrow's Labs & Rationales: bep for K, Mg DVT/Prophylaxis: mechanical Discharge Plan Stable for Discharge? No ANDRA GONZALEZ MD 07/06/16 9349: Attending MD Review Statement Attending Statement Attending MD Statement: examined this patient, discuss w/resident/PA/TI[employer]ABRIC INSPECTOR, agreed w/resident/PA/TIRE FABRIC INSPECTOR, reviewed EMR data (avail), discussed with nursing, amended to note Attending Assessment/Plan: The patient was seen and discussed with house staff. Agree with the plan of care as outlined.
[2016-07-06 09:09] VITALS: BP 100/70
--- NOTE | 2016-07-06 13:45 | PN- Psychiatry ---
Assessment/Plan Impression: Identifying Info: 61-year-old male presents on diagnosed with acute pancreatitis secondary to alcohol use and admitted to medicine for treatment as well as alcohol detox, SUBJECTIVE "I'm not happy about being sick... Feeling like a worthless human being." Brief ROS Gait: Per report unsteady Sleep: Reports adequate Appetite: Adequate OBJECTIVE Interviewed with permission with brother at bedside. Mental Status Exam Presentation/Appearance: Calm and cooperative. Bearded, hospital garb. Orientation: x3 Sensorium: Awake and alert Eye contact: Appropriate Affect: Somewhat blunted, congruent with stated mood Mood: "Not happy" Depression: Endorses Anxiety: Endorses Thought Content: - Denies SI/HI, AH/VH, PI. States and also believes they will not kill themselves. - Denies Hopeless/Helpless Thoughts Thought Process: Primarily linear but there is mild confusion at times Speech: Normal tone and rate Judgment: Fair Insight: Fair Cognition: Memory: Endorses deficits Attention/Concentration: Some deficits Patient continues to report that he is interested in intensive outpatient program and will be referred once discharge date is known. He has questions concerning short-term disability which can be addressed by outpatient clinicians. Per nursing report, pt has improved mentation today with some confusion at times. CIWA for past 12 hours: 0,0,0,3,1,1,1,1 Total Ativan q24h = 5mg Spoke to psychiatrist Dr. Haq (KRISTINE in chart) who states he only saw the pt 2 times last January. Is aware of IOP plan and may follow pt post d/c if pt does not choose a different clinician. Spoke to primary care office to inform them of plan for IOP as Dr. Ren was current psych med perscriber. SILVINO Ayala states that they are agreement with current treatment plan and will await our reccomendations for future psych tx. ASSESSMENT 61-year-old male is displaying continued improvement in mental status in the context of alcohol withdrawal. His Ativan taper can be advanced. He remains motivated for treatment and is a good candidate for intensive outpatient care. Differential diagnosis Alcohol use disorder, unspecified Benzodiazepine use disorder, unspecified Depressive disorder, unspecified Alcohol withdrawal delirium, resolving Suggestion: 1. Agree with plan to discontinue sitter. 2. We will advance the Ativan taper to 1mg q6h and reassess tomorrow. 3. Continue CIWA and vitamin supplimentation. 4. Please continue to hold risperidone and lexapro. 5. IOP intake to be scheduled when discharge date is known. Thank you for including psychiatry in this case, we will continue to follow. Kg Biswas APRN, pager [phone] Subjective Subjective: .
[2016-07-06 16:28] VITALS: BP 126/88
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
--- NOTE | 2016-07-06 19:39 | NUR ---
Referral received yesterday morning via electronic night order selector. This patient is a 61 year old man, admitted to the hospital on 07/03 with pancreatitis in the setting of ETOH dependence. I met with patient briefly yesterday (also present was patients brother). Patient was oriented x2; off on date. Patient was placed on CIWA protocol; minimal signs and symptoms noted; minimal ativan required. Collaborated with psychiatry today who reports patient is interested in IOP upon discharge. Please mobilize patient for functional independence. Will follow.
[2016-07-07 02:59] VITALS: BP 140/80
--- NOTE | 2016-07-07 07:12 | PN- Housestaff ---
MACI BROWN,XIOMARA 07/07/16 0711: Subjective Follow-up For: Pancreatitis 2/2 alcohol abuse, hypertriglyemia Complaints: pain scale (0-10) (8/10) Subjective: He c/o abdominal pain, sharp 8/10, radiating to back. His diet was changed from full liquid to clear liquid yesterday. He had 1 bowel movement yesterday. Today he's scheduled to get MRCP. Review of Systems Constitutional: Denies: chills, fever, weakness. EENTM: Reports: no symptoms. Cardiovascular: Denies: chest pain, orthopena, palpitations, peripheral edema, syncope. Respiratory: Denies: cough, short of breath, sputum production, wheezing. Gastrointestinal: Reports: abdominal pain. Denies: constipation, diarrhea, nausea, vomiting. Genitourinary: Reports: no symptoms. Musculoskeletal: Reports: no symptoms. Skin: Reports: no symptoms. Neurological/Psychological: Reports: anxiety. Hematologic/Endocrine: Reports: no symptoms. Immunologic/Allergic: Reports: no symptoms. Objective Last 24 Hrs of Vital Signs/I&O Vital Signs Date Time Temp Pulse Resp B/P Pulse O2 O2 Flow FiO2 Ox Delivery Rate 07/07 1021 77 162/90 07/07 1021 77 162/90 07/07 0800 97.6 77 20 134/78 93 Nasal 3.0L Cannula 07/07 0259 97.6 87 18 140/80 92 Nasal 2.0L Cannula 07/07 0000 Nasal 2.0L Cannula 07/06 1628 98.0 81 20 126/88 92 Room Air 07/06 1600 94 Nasal 2.0L Cannula Intake & Output 07/07 1600 07/07 0800 07/07 0000 Intake Total 720 1225 Output Total Balance 720 1225 Intake, IV 600 225 Intake, Oral 120 1000 Number 1 Bowel Movements Physical Exam General Appearance: Alert, Oriented X3, Cooperative, Mild Distress Skin: No Rashes, No Breakdown, No Significant Lesion HEENT: Atraumatic, PERRLA, EOMI, Mucous Membr. moist/pink Neck: Supple, No JVD, No LAD Lymphatic: Cervical nl Cardiovascular: Regular Rate, Normal S1, Normal S2, No Murmurs Lungs: Clear to Auscultation, Normal Air Movement Abdomen: Soft, RUQ tenderness +, no rTd Neurological: Normal Speech, Strength at 5/5 X4 Ext, Normal Tone, Sensation Intact, Cranial Nerves 3-12 NL Extremities: No Edema, Normal Pulses, No Tenderness/Swelling Vascular: Normal Pulses, Pulses Symmetrical Current Medications: Current Medications Sig/Fabiola Start time Last Medication Dose Route Stop Time Status Admin Acetaminophen 650 MG Q6-PRN PRN 07/03 2115 DC PO Amlodipine Besylate 10 MG DAILY 07/04 1000 AC 07/07 PO 1021 Docusate Sodium 100 MG DAILY 07/06 1510 AC 07/07 PO 1015 Folic Acid 1 MG DAILY 07/04 1000 AC 07/07 PO 1015 Gabapentin 300 MG DAILY 07/04 1000 AC 07/07 PO 1016 Lactated Ringer's 1,000 ML Q6H 07/03 2145 AC 07/07 IV 0300 Lorazepam 1 MG ONCE ONE 07/07 1000 DC IV 07/07 1001 Lorazepam 1 MG Q6 07/06 1800 AC 07/07 PO 0517 Lorazepam 1.5 MG Q6 07/05 2359 DC 07/06 PO 1114 Lorazepam 0 Q1P PRN 07/03 1845 AC 07/05 IV 0256 Morphine Sulfate 2.5 MG Q4P PRN 07/07 0939 AC IV Morphine Sulfate 2 MG Q6P PRN 07/06 1000 DC 07/07 IV 0755 Multivitamins 1 TAB DAILY 07/04 1000 AC 07/07 Therapeutic PO 1015 Nebivolol 5 MG DAILY 07/04 1000 AC 07/07 PO 1021 Oxycodone HCl 5 MG Q6P PRN 07/06 1000 AC 07/07 PO 0300 Pantoprazole Sodium 40 MG DAILY 07/03 2230 AC 07/07 IV 1016 Polyethylene Glycol 17 GM DAILY 07/06 1515 AC 07/06 PO 1622 Pravastatin Sodium 80 MG DAILY 07/07 1000 AC 07/07 PO 1016 Senna/Docusate Sodium 1 TAB BID PRN 07/06 1515 AC PO Thiamine HCl 100 MG DAILY 07/04 1000 AC 07/07 PO 1015 Trimethobenzamide HCl 200 MG 4 TIMES/DAY PRN 07/03 2145 AC IM Last 24 Hrs of Lab/Felix Results Last 24 Hrs of Labs/Mics: Laboratory Tests 07/07/16 0618: Anion Gap 8, Estimated GFR > 60, BUN/Creatinine Ratio 8.3, Triglycerides 140, Cholesterol 186, LDL Cholesterol, Calc 105, HDL Cholesterol 53, Cholesterol/HDL Ratio 4 Orders CIWA Score (last 24 hrs): 0-0-0-0-2 Lines/Diet/Fluids Lines: peripheral lines Assessment/Plan Assessment: 61 yo male with pmh of chronic alcohol abuse complicated by multiple episodes of pancreatitis, HTN, brain aneurysm (2011), viral meningitis (2012), anxiety/ depression, renal cysts, who was previously admitted for acute pancreatitis in Mar 2016, was brought in with a chief complaint of epigastric abdominal pain radiating to the back 3 days ago with nausea/nonbloody vomiting/diarrhea. reports that patient started drinking soon after he was discharged in March. Drinks 4-5 glasses of rum/beer/wine everyday, last drink 7 pm one day prior to admission. Quit smoking Feb 2016, denies illicit drug use. 1. Acute pancreatitis likely secondary to alcohol abuse: GI consult is appreciated. His diet was changed back to clear liquid diet due to pain. His pain medication will be increaseded to po oxycodone q6prn with IV morphine 2.5mg q4prn. Continue gentle IV hydration with LR @ 75cc/hr. 2. Hypertriglyemia: TG was improved from 1363 to 473, then 140 today. High dose pravastatin was started. 3. Alcohol abuse & depression: Patient is doing well with ativan taper. Now on po ativan 1mg q6 and IV ativan CIWA protocol requiring po 4.5mg + IV 2mg, total 6.5mg ativan in 24 hours. CIWA has been stable 0-0-0-0-2. Continue MV, thiamine, folate. Risperidone/lexapro were held. Hypokalemia/hypomagnesemia resolved now, K 4.0 Mg 2.0. Will restart antipsychotic medications once ETOH detox is resolved. Pt is off sitter. 4. HTN: BP is hypertensive, resume nebivolol, norvasc for now. Pt is on IV LR @ 75cc/hr. 5. Dilated CBD: abdomen CT/US didn't show CBD stones but dilated common bile duct with renal cysts. LFT was normalized, increased direct bilirubin 0.5. GI consult is appreciated, pt is going to get MRCP. 6. Hypokalemia: resolved DVT ppx: ALPS, full code. Problem List: 1. Pancreatitis, acute 2. Alcohol withdrawal Pain Ratin Pain Location: abdominal pain Pain Goal: Pain 7 or less Pain Plan: IV morphine, po oxycodone Tomorrow's Labs & Rationales: CBC follow up WBC with pancreatitis DVT/Prophylaxis: mechanical Consulting Request: Consulting Specialty: Gastroenterology Consulting Physician: Dr. Vasquez Reason for Consult: Pancreatitis, CBD dilation Discharge Plan Stable for Discharge? No ANDRA GONZALEZ MD 07/07/16 1331: Attending MD Review Statement Attending Statement Attending MD Statement: examined this patient, discuss w/resident/PA/POKER SUPERVISOR, agreed w/resident/PA/POKER SUPERVISOR, reviewed EMR data (avail), discussed with nursing, amended to note Attending Assessment/Plan: The patient was seen and discussed with house staff. Agree with the plan of care as outlined.
[2016-07-07 08:00] VITALS: BP 134/78
--- NOTE | 2016-07-07 14:57 | PN- Psychiatry ---
Assessment/Plan Impression: This is a 61 y.o. male presenting with pancreatitis and ETOH withdrawal. CIWA 1200: 4-3-3-0-1-7-7-7-5-2-1-1-1-1-1 VS 1021: 162/90, 77HR The patient has received 4 mg lorazepam in the previous 24 hours before this interview, with no use of PRN lorazepam today. I have advanced the Ativan taper. I have increased gabapentin to 300 mg PO TID for anxiety, an off-label use. EKG 07/06/16 0705: 80bpm, SR, QTc 443 mS. QTc prolongation has resolved with discontinuation of risperidone and escitalopram, both prescribed for depression. Med claim history: Do not restart these without reviewing notes and discussing with psychiatry. Diazepam 5 mg #60 for 30 days on 06/14/16 by SILVINO Richard (Dr. Ren's office ?) Risperidone 1 mg #180 for 90 days on 06/08/[address] Ren Escitalopram 20 mg PO #90 for 90 days by Kavya Franco (Dr. Ren's office ?) We may consider starting an SSRI, such as sertraline for depression and anxiety tomorrow, but for now, the patient agrees to an increase in gabapentin for anxiety, an off-label use. The patient has MRI studies at [facility] to monitor his brain aneurysms, and states that due to his extreme claustrophobia, he is given fentanyl. The patient is concerned that the use of Ativan, as currently ordered as a one time dode will be insufficient. Suggestion: 1. Lorazepam detox taper continued: a. Lorazepam 1 mg PO q 6 hours will stop after dose at 1800, then b. Lorazepam 0.5 mg PO q 6 hours will begin today at 2355 for 5 doses, then c. We will review tomorrow. 2. Gabapentin 300 mg PO TID. 3. The patient will need an appointment at [facility] as he nears discharge. We will continue to follow along with you. Timi Ramey APRN, Pager [phone] Subjective Subjective: A+OX3. Denies AVTH; presents no calvin delusions. Denies SI/HI. Feels safe in the hospital, but is concerned that the MRI ordered for this afternoon will worsen anxiety and cause panic. Denies special/magical spivey, denies thought broadcasting. Depression scaled as moderate to severe; anxiety 9/10, or severe. The patient denies problems with memory, but is easily confused by discussion of medications.
--- NOTE | 2016-07-07 17:00 | MRI REPORT ---
EXAMINATION: MR ABDOMEN WITHOUT CONTRAST/MRCP CLINICAL INFORMATION: Alcoholic patient with pancreatitis and mild CBD dilatation. No gallstones on ultrasound or CT. Evaluate for choledocholithiasis. COMPARISON: Right upper quadrant ultrasound dated 07/05/2016. CT scan of the abdomen and pelvis dated 07/03/2016 and 03/17/2016. TECHNIQUE: An MRI scan of the abdomen was performed using multiple imaging sequences and imaging planes. As per the MRCP protocol, heavily T2-weighted 3-D high-resolution MRCP sequences were obtained in the coronal plane along with thin and thick slab coronal images and coronal MIP reconstructions and reviewed on an independent workstation. FINDINGS: GALLBLADDER, BILIARY TREE: Gallbladder is well distended and unremarkable with no evidence of gallstones, wall thickening or pericholecystic fluid seen. Cystic duct is best seen on series 9, image 23 and appears decompressed and unremarkable. The central intrahepatic ducts are mildly dilated. Common hepatic duct measures 0.9 cm in diameter and tapers smoothly with the distal common bile duct just prior to the ampullary region measuring 0.5 cm. No evidence of choledocholithiasis is seen and no obstructing mass is noted. LIVER: The liver is normal in size and signal. There is a tiny 0.5 cm T2 bright mass seen in the periphery of segment 6 (series 2, image 10; series 4, image 17), incompletely characterized on noncontrast exam but showing hyperenhancement on prior CT scans, consistent with a hemangioma. No additional liver mass seen. PANCREAS: There is mild fatty infiltration in the pancreatic head. As seen on the CT scan, small amount of peripancreatic edema is noted, predominantly around the pancreatic tail in the splenic hilar region and extending along the left Gerota's fascia inferiorly. Findings are consistent with acute mild interstitial pancreatitis. The pancreatic duct is normal, measuring 0.2 cm in maximal diameter. No anatomic variant of the pancreatic duct is seen. There is mild side branch ectasia seen with small cystic structures noted in the mid pancreatic body (series 9, images 42 through 49). SPLEEN: Unremarkable. ADRENAL GLANDS AND KIDNEYS: Both adrenal glands are normal. In the upper pole of the right kidney, 2 adjacent T2 bright cysts as seen, measuring up to 0.7 cm in size, unchanged from prior CT scans dating back to 03/17/2016. In the mid right kidney, a 1.0 cm calyceal ectasia or parapelvic cyst is seen, also unchanged dating back to 03/17/2016. There is a 0.4 cm cortical cyst in the mid left kidney, unchanged from 03/17/2016. The kidneys are otherwise unremarkable. BOWEL LOOPS: The included small and large bowel loops are grossly unremarkable. LYMPHOVASCULAR STRUCTURES: Abdominal aorta is normal in caliber. No significant adenopathy is seen. LUNG BASES: There are small bilateral pleural effusions with associated bibasilar subsegmental atelectasis, new when compared to the 07/03/2016 CT scan. BONES: The included bony structures are unremarkable. IMPRESSION: 1. Findings are consistent with acute interstitial pancreatitis with mild peripancreatic edema. No focal walled off collections are seen. There are, however, small bilateral pleural effusions, new when compared to 07/03/2016. 2. No evidence of cholelithiasis or acute cholecystitis. 3. Mild dilatation of the central intrahepatic bile ducts and the common hepatic duct with smooth tapering of the common bile duct. Findings may represent sequelae of previously passed stones. On current examination, no evidence of choledocholithiasis is seen, and no extrinsic compression by a pancreatic mass is noted. 4. Small hepatic and renal cysts.
[2016-07-07 17:40] VITALS: BP 146/92
[2016-07-08 00:37] VITALS: BP 138/88
--- NOTE | 2016-07-08 07:11 | PN- Housestaff ---
MACI BROWN,XIOMARA 07/08/16 0711: Subjective Follow-up For: Acute pancreatitis Alcohol withdrawal Subjective: He is tolerating full liquid diet well. No f/c, chest pain/shortness of breath, n/v. Abdominal pain was decreased to 4/10. He denies any anxiety / tremors related with alcohol withdrawal. Review of Systems Constitutional: Denies: chills, fever, weakness. EENTM: Reports: no symptoms. Cardiovascular: Denies: chest pain, orthopena, palpitations, peripheral edema. Respiratory: Denies: cough, short of breath, sputum production, wheezing. Gastrointestinal: Reports: abdominal pain. Denies: diarrhea, nausea, vomiting. Genitourinary: Reports: no symptoms. Musculoskeletal: Reports: no symptoms. Skin: Reports: no symptoms. Neurological/Psychological: Reports: no symptoms. Hematologic/Endocrine: Reports: no symptoms. Immunologic/Allergic: Reports: no symptoms. Objective Last 24 Hrs of Vital Signs/I&O Vital Signs Date Time Temp Pulse Resp B/P Pulse O2 O2 Flow FiO2 Ox Delivery Rate 07/08 0940 85 132/88 07/08 0937 85 132/88 07/08 0812 98.9 77 20 135/82 92 Room Air 07/08 0037 98.1 74 20 138/88 93 Room Air 07/07 1740 97.4 80 20 146/92 91 Intake & Output 07/08 1600 07/08 0800 07/08 0000 Intake Total 1080 705 Output Total 525 Balance 1080 180 Intake, IV 600 225 Intake, Oral 480 480 Output, Urine 525 Physical Exam General Appearance: Alert, Oriented X3, Cooperative, No Acute Distress Skin: No Rashes, No Breakdown, No Significant Lesion HEENT: Atraumatic, PERRLA, EOMI, Mucous Membr. moist/pink Neck: Supple, No JVD, No LAD Lymphatic: Cervical nl Cardiovascular: Regular Rate, Normal S1, Normal S2, No Murmurs Lungs: Clear to Auscultation, Normal Air Movement Abdomen: Normal Bowel Sounds, Soft, No Tenderness Neurological: Normal Speech, Strength at 5/5 X4 Ext, Normal Tone, Sensation Intact, Cranial Nerves 3-12 NL Extremities: No Edema, Normal Pulses, No Tenderness/Swelling Vascular: Normal Pulses, Pulses Symmetrical Current Medications: Current Medications Sig/Fabiola Start time Last Medication Dose Route Stop Time Status Admin Amlodipine Besylate 10 MG DAILY 07/04 1000 AC 07/08 PO 0940 Docusate Sodium 100 MG DAILY 07/06 1510 AC 07/08 PO 0937 Folic Acid 1 MG DAILY 07/04 1000 AC 07/08 PO 0937 Gabapentin 300 MG TID 07/07 1600 AC 07/08 PO 0939 Gabapentin 300 MG DAILY 07/04 1000 DC 07/07 PO 1016 Lactated Ringer's 1,000 ML Q6H 07/03 2145 AC 07/08 IV 0951 Lorazepam 0.5 MG Q6 07/07 2359 AC 07/08 PO 07/08 2359 1143 Lorazepam 1 MG Q6 07/06 1800 DC 07/07 PO 07/07 1801 1734 Lorazepam 0 Q1P PRN 07/03 1845 AC 07/05 IV 0256 Morphine Sulfate 2.5 MG Q4P PRN 07/07 0939 AC 07/08 IV 0949 Multivitamins 1 TAB DAILY 07/04 1000 AC 07/08 Therapeutic PO 0941 Nebivolol 5 MG DAILY 07/04 1000 AC 07/08 PO 0937 Oxycodone HCl 5 MG Q6P PRN 07/06 1000 AC 07/08 PO 1312 Pantoprazole Sodium 40 MG DAILY 07/03 2230 AC 07/08 IV 1026 Polyethylene Glycol 17 GM DAILY 07/06 1515 AC 07/06 PO 1622 Pravastatin Sodium 80 MG DAILY 07/07 1000 AC 07/08 PO 0940 Senna/Docusate Sodium 1 TAB BID PRN 07/06 1515 AC PO Thiamine HCl 100 MG DAILY 07/04 1000 AC 07/08 PO 0941 Trimethobenzamide HCl 200 MG 4 TIMES/DAY PRN 07/03 2145 AC IM Lines/Diet/Fluids Lines: peripheral lines Assessment/Plan Assessment: 61 yo male with pmh of chronic alcohol abuse complicated by multiple episodes of pancreatitis, HTN, brain aneurysm (2011), viral meningitis (2012), anxiety/ depression, renal cysts, who was previously admitted for acute pancreatitis in Mar 2016, was brought in with a chief complaint of epigastric abdominal pain radiating to the back 3 days ago with nausea/nonbloody vomiting/diarrhea. reports that patient started drinking soon after he was discharged in March. Drinks 4-5 glasses of rum/beer/wine everyday, last drink 7 pm one day prior to admission. Quit smoking Feb 2016, denies illicit drug use. 1. Acute pancreatitis likely secondary to alcohol abuse: GI consult is appreciated. Patient is clinically improving. His diet was advanced to full liquid, tolerating well. Will advance diet to regular diet. Continue current pain medication po oxycodone 5mg q6prn with IV morphine 2.5mg q4prn. From MRI, pt develops small bilateral pleural effusion -> D/C IV fluid. 2. Hypertriglyemia: TG was improved from 1363 to 473, then 140 today. High dose pravastatin was started. 3. Alcohol abuse & depression: Patient is doing well with ativan taper. Now on po ativan 0.5mg q6 and IV ativan CIWA protocol. CIWA has been stable 0-0-0-0. Continue MV, thiamine, folate. Risperidone/lexapro were held. Will restart antipsychotic medications once ETOH detox is resolved. Pt is off sitter. 4. HTN: BP is stable, c/w nebivolol, norvasc for now. 5. Dilated CBD: MRCP revealed mild dilatation of the central intrahepatic bile ducts and the common hepatic duct with smooth tapering of the common bile duct. Findings may represent sequelae of previously passed stones. On current examination, no evidence of choledocholithiasis is seen, and no extrinsic compression by a pancreatic mass is noted. 6. Hypokalemia: resolved DVT ppx: ALPS, full code. Problem List: 1. Pancreatitis, acute 2. Alcohol withdrawal Pain Ratin Pain Location: Abdominal pain Pain Goal: Pain 4 or less Pain Plan: po oxycodone IV morphine Tomorrow's Labs & Rationales: NA DVT/Prophylaxis: pharmacological Consulting Request: Consulting Specialty: Gastroenterology Consulting Physician: Dr. Vasquez Reason for Consult: Pancreatitis, CBD dilation Discharge Plan Stable for Discharge? No ANDRA GONZALEZ MD 07/08/16 1613: Attending MD Review Statement Attending Statement Attending MD Statement: examined this patient, discuss w/resident/PA/DRY MILL WORKER, agreed w/resident/PA/DRY MILL WORKER, reviewed EMR data (avail), discussed with nursing, amended to note Attending Assessment/Plan: The patient was seen and discussed with house staff. Agree with plan of care.
[2016-07-08 08:12] VITALS: BP 135/82
[2016-07-08] MEDS ORDERED: OXYCODONE HCL5 M1 PO (14:36)
[2016-07-08] MEDS ORDERED: GABAPENTIN300 M2 PO (14:36)
[2016-07-08] MEDS ORDERED: NORVASC10 M1 PO (14:36)
[2016-07-08 16:13] VITALS: BP 118/54
[2016-07-08 23:42] VITALS: BP 150/104
[2016-07-09 08:12] VITALS: BP 130/70
[2016-07-09 09:21] VITALS: BP 126/84
--- NOTE | 2016-07-09 09:44 | PN- Housestaff ---
MACI BROWN,XIOMARA 07/09/16 0944: Subjective Follow-up For: Acute pancreatitis Alcohol withdrawal Complaints: pain scale (0-10) (3/10) Subjective: He is eating breakfast on the bed. Still has mild abodminal pain, but he's tolerating diet well. He didn't require IV morphine or IV ativan overnight. He walks in the hallway, independent. Review of Systems Constitutional: Denies: chills, fever, malaise, weakness. EENTM: Reports: no symptoms. Cardiovascular: Denies: chest pain, orthopena, palpitations, peripheral edema. Respiratory: Denies: cough, short of breath, sputum production, wheezing. Gastrointestinal: Reports: abdominal pain. Denies: constipation, diarrhea, nausea, vomiting. Genitourinary: Reports: no symptoms. Musculoskeletal: Reports: no symptoms. Skin: Reports: no symptoms. Neurological/Psychological: Reports: headache. Hematologic/Endocrine: Reports: no symptoms. Immunologic/Allergic: Reports: no symptoms. Objective Last 24 Hrs of Vital Signs/I&O Vital Signs Date Time Temp Pulse Resp B/P Pulse O2 O2 Flow FiO2 Ox Delivery Rate 07/09 0921 83 126/84 07/09 0918 83 126/84 07/09 0812 97.9 80 20 130/70 96 Room Air 07/08 2342 98.0 83 18 150/104 91 Room Air 07/08 1613 97.6 79 18 118/54 91 Intake & Output 07/09 1600 07/09 0800 07/09 0000 Intake Total 150 Output Total Balance 150 Intake, Oral 150 Physical Exam General Appearance: Alert, Oriented X3, Cooperative, No Acute Distress Skin: No Rashes, No Breakdown, No Significant Lesion HEENT: Atraumatic, PERRLA, EOMI, Mucous Membr. moist/pink Neck: Supple, No JVD, No LAD Lymphatic: Cervical nl Cardiovascular: Regular Rate, Normal S1, Normal S2, No Murmurs Lungs: Clear to Auscultation, Normal Air Movement Abdomen: Normal Bowel Sounds, Soft, No Tenderness Neurological: Normal Speech, Strength at 5/5 X4 Ext, Normal Tone, Sensation Intact, Cranial Nerves 3-12 NL Extremities: No Edema, Normal Pulses, No Tenderness/Swelling Vascular: Normal Pulses, Pulses Symmetrical Current Medications: Current Medications Sig/Fabiola Start time Last Medication Dose Route Stop Time Status Admin Amlodipine Besylate 10 MG DAILY 07/04 1000 AC 07/09 PO 0921 Docusate Sodium 100 MG DAILY 07/06 1510 AC 07/09 PO 0918 Folic Acid 1 MG DAILY 07/04 1000 AC 07/09 PO 0919 Gabapentin 300 MG TID 07/07 1600 AC 07/09 PO 0920 Lactated Ringer's 1,000 ML Q6H 07/03 2145 DC 07/08 IV 0951 Lorazepam 0.5 MG BID 07/09 1000 AC 07/09 PO 07/16 0959 0925 Lorazepam 0.5 MG Q6 07/07 2359 DC 07/08 PO 07/08 2359 2353 Lorazepam 0 Q1P PRN 07/03 1845 AC 07/05 IV 0256 Morphine Sulfate 2 MG Q6P PRN 07/08 1555 AC IV Morphine Sulfate 2.5 MG Q4P PRN 07/07 0939 DC 07/08 IV 0949 Multivitamins 1 TAB DAILY 07/04 1000 AC 07/09 Therapeutic PO 0922 Nebivolol 5 MG DAILY 07/04 1000 AC 07/09 PO 0918 Oxycodone HCl 5 MG Q6P PRN 07/06 1000 AC 07/08 PO 1312 Pantoprazole Sodium 40 MG DAILY 07/03 2230 AC 07/09 IV 0955 Patient Medication 1 ED .STK-MED ONE 07/09 1346 MT Teaching ED 07/09 1347 Polyethylene Glycol 17 GM DAILY 07/06 1515 AC 07/06 PO 1622 Pravastatin Sodium 80 MG DAILY 07/07 1000 AC 07/09 PO 0921 Senna/Docusate Sodium 1 TAB BID PRN 07/06 1515 AC PO Thiamine HCl 100 MG DAILY 07/04 1000 AC 07/09 PO 0922 Tramadol HCl 50 MG Q6P PRN 07/08 1600 AC 07/08 PO 1639 Trimethobenzamide HCl 200 MG 4 TIMES/DAY PRN 07/03 2145 AC IM Lines/Diet/Fluids Lines: peripheral lines Assessment/Plan Assessment: 61 yo male with pmh of chronic alcohol abuse complicated by multiple episodes of pancreatitis, HTN, brain aneurysm (2011), viral meningitis (2012), anxiety/ depression, renal cysts, who was previously admitted for acute pancreatitis in Mar 2016, was brought in with a chief complaint of epigastric abdominal pain radiating to the back 3 days ago with nausea/nonbloody vomiting/diarrhea. reports that patient started drinking soon after he was discharged in March. Drinks 4-5 glasses of rum/beer/wine everyday, last drink 7 pm one day prior to admission. Quit smoking Feb 2016, denies illicit drug use. 1. Acute pancreatitis likely secondary to alcohol abuse: GI consult is appreciated. Patient is clinically improving. His diet was advanced to heart healthy diet. Now his abdominal pain is minimal. He didn't require IV morphine for pain management. He'll be discharged with po tramadol #20. 2. Hypertriglyemia: TG was improved from 1363 to 473, then 140 today. High dose pravastatin was continued. Please follow up with a primary doctor. 3. Alcohol abuse & depression: Patient is doing well with ativan taper. He finished po ativan 0.5mg q6 and now on 0.5mg bid. He didn't require IV ativan CIWA protocol in 24 hours. CIWA has been stable 0-0-0-0. Continue MV, thiamine, folate. Risperidone/lexapro were held due to QTc prolongation during admission. Patient has a follow-up appointment at [facility] on 07/12 @ 9:30 am. Resuming of risperidone / lexapro should be managed by [facility]. 4. HTN: BP is stable, c/w nebivolol, norvasc for now. 5. Dilated CBD: MRCP revealed mild dilatation of the central intrahepatic bile ducts and the common hepatic duct with smooth tapering of the common bile duct. Findings may represent sequelae of previously passed stones. On current examination, no evidence of choledocholithiasis is seen, and no extrinsic compression by a pancreatic mass is noted. Stable. 6. Hypokalemia: resolved DVT ppx: ALPS, full code. Problem List: 1. Pancreatitis, acute 2. Alcohol withdrawal 3. Depression Pain Ratin Pain Location: Abdominal pain Pain Goal: Pain 4 or less Pain Plan: PO Tramadol 50mg q6p Tomorrow's Labs & Rationales: DC today DVT/Prophylaxis: pharmacological Consulting Request: Consulting Specialty: Gastroenterology Consulting Physician: Dr. Vasquez Reason for Consult: Pancreatitis, CBD dilation Discharge Plan Stable for Discharge? Yes Anticipated Discharge (Day): today If Discharged Today/In 24 Hrs: enter ant[facility] discharge ord, W-10/discharge paper done, CMR done ANDRA GONZALEZ MD 07/09/16 1431: Attending MD Review Statement Attending Statement Attending MD Statement: examined this patient, discuss w/resident/PA/LIFE CYCLE ASSESSMENT ANALYST, agreed w/resident/PA/LIFE CYCLE ASSESSMENT ANALYST, reviewed EMR data (avail), discussed with nursing, discussed with case mgmt, amended to note Attending Assessment/Plan: The patient was seen and discussed with house staff. Agree with the plan of care as outlined.
[2016-07-09] MEDS ORDERED: AMLODIPINE BESY10 M1 PO (13:02)
[2016-07-09] MEDS ORDERED: ATIVAN0.5 M1 PO (13:07)
[2016-07-09] MEDS ORDERED: TRAMADOL HCL50 M1 PO (13:09)
--- NOTE | 2016-07-09 13:18 | Patient Discharge Instructions ---
Discharge Instructions General Discharge Information You were seen/treated for: Acute pancreatitis secondary to alcohol abuse and hypertriglyemia Alcohol withdrawal syndrome You had these procedures: Abdomen US, CT, MRI Special Instructions: 1. Please follow up with Ernesto LAM at 9:30 am on 07/12/16 for alcohol dependence. 2. Please follow up with your primary doctor after discharge within 1 week Diet Continue normal diet: Yes Recommended Diet: Heart Healthy Activity Full Activity/No Limits: Yes Activity Self Limited: No Additional ACTIVITY Info: Increase as tolerated Acute Coronary Syndrome Inclusion Criteria At DC or during hospital stay patient has or had the following: ACS DIAGNOSIS No Discharge Core Measures Meds if any: Prescribed or Continued at Discharge Meds if any: NOT Prescribed or Continued at Discharge Congestive Heart Failure Inclusion Criteria At DC or during hospital stay patient has or had the following: CHF DIAGNOSIS No Discharge Core Measures Meds if any: Prescribed or Continued at Discharge Meds if any: NOT Prescribed or Continued at Discharge Cerebrovascular accident Inclusion Criteria At DC or during hospital stay patient has or had the following: CVA/TIA Diagnosis No Discharge Core Measures Meds if any: Prescribed or Continued at Discharge Meds if any: NOT Prescribed or Continued at Discharge Venous thromboembolism Inclusion Criteria VTE Diagnosis No VTE Type NONE VTE Confirmed by (Test) NONE Discharge Core Measures - Per Current guidelines, there needs to be overlap - treatment for the first 5 days of Warfarin therapy. - If discharged on Warfarin prior to 5 days of - overlap therapy, the patient will need to be - assessed for post discharge needs including - *Post discharge parental anticoagulation - *Warfarin and/or parental anticoagulation education - *Follow up date to check INR post discharge At least 5 days overlap therapy as Inpatient No Meds if any: Prescribed or Continued at Discharge Note: Overlap Therapy is Warfarin and Anticoagulant Meds if any: NOT Prescribed or Continued at Discharge
--- NOTE | 2016-07-09 14:10 | Discharge Summary ---
Visit Information Visit Dates Admission Date: 07/03/16 Discharge Date: 07/09/16 Hospital Course Course Attending Physician: ANDRA GONZALEZ MD Primary Care Physician: GLORIA BROWN,SHAYAN Topete Consulting Request: Consulting Specialty: Gastroenterology Consulting Physician: Dr. Vasquez Reason for Consult: Pancreatitis, CBD dilation Hospital Course: 61 yo male with pmh of chronic alcohol abuse complicated by multiple episodes of pancreatitis, HTN, brain aneurysm (2011), viral meningitis (2012), anxiety/ depression, renal cysts, who was previously admitted for acute pancreatitis in Mar 2016, was brought in with a chief complaint of epigastric abdominal pain radiating to the back 3 days ago with nausea/nonbloody vomiting/diarrhea. His reported that patient started drinking soon after he was discharged in March. Drinks 4-5 glasses of rum/beer/wine everyday, last drink 7 pm one day prior to admission. He is a former smoker (quit smoking Feb 2016) and he denied illicit drug use. He denied current suicidal or homocidal idea. Initial V/S: 98.7F, IA 130 RR 20 BP 137/82 On exam, patient was drowsy under the effect of dilaudid, but he responded appropriately to questions, dry mucous membranes, pupils are small sluggishly reacting to light. Chest bilateral clear, Heart S1S2 tachycardic, Abdomen guarding+, not rigid, epigastric tenderness, BS+, Extremities no edema. Labs: WBC 10.4 granulocytosis 77.2%, Hb/Hct 14.9/43.2, Na 138, K 3.7, bicarb 19, AG 17, lactic acid 3.3 --> 1.0, AST 129, ALT 61, Alk phos 140, trop neg, lipase 559. Lipid panel: TG 1363, Chol 319, HDL 62. Utox positive for opiates (received in ER) and benzos (patient is on valium). Alcohol < 10. UA 50-75 RBCs, large hemoglobin. CXR: hypoexpanded lungs, left basilar opacification likely atelectasis. CT abd/pelvis: hepatic steatosis, CBD 0.8 cm (0.9 cm on previous imaging), no cholelithiasis or choledocholithiasis, peripancreatic stranding c/w acute pancreatitis. EKG: Sinus tachycardia, Qtc 482, nonpsecific T-wave changes. Patient was admitted to general medicine for following problem lists; 1. Acute pancreatitis likely secondary to alcohol abuse/hypertriglycemia: GI consult was obtained from Dr. Vasquez. BISAP score was 0. He was given LR @ 150cc/hr initially then decreased later. His diet was slowly advanced from NPO, clear/full liquid diet, then heart healthy diet. His pain was managed with IV morphine and po oxycodone & tramadol. He'll be discharged home with po tramadol q6p #20. 2. Hypertriglyemia: TG was improved from 1363 to 473, then 140. High dose pravastatin was continued. Please follow up with a primary doctor. 3. Alcohol abuse & depression: Patient was doing well with po ativan taper and IV ativan CIWA protocol in 24 hours. He finished po ativan 0.5mg q6, and he would be discharged with 2 doses of 0.5mg. CIWA has been stable 0-0-0-0. He continued on po Multivitamin, thiamine and folate. PO Risperidone/lexapro were held due to QTc prolongation during admission. Patient has a follow-up appointment at [facility] on 07/12 @ 9:30 am. Resuming of risperidone / lexapro should be managed by [facility]. 4. HTN: BP was stable, he continued po nebivolol and norvasc. 5. Dilated CBD: CT abdomen/CT, abdomen US, and MRCP were obtained. MRCP revealed mild dilatation of the central intrahepatic bile ducts and the common hepatic duct with smooth tapering of the common bile duct. Findings may represent sequelae of previously passed stones. On current examination, no evidence of choledocholithiasis was seen, and no extrinsic compression by a pancreatic mass is noted. Please follow up with a primary doctor. 6. Hypokalemia: He had hypokalemia of 3.1. After repletion, it was resolved to 4.0. DVT ppx: ALPS, full code. Allergies: Coded Allergies: NO KNOWN ALLERGIES (07/05/16) Disposition Summary Disposition Principal Diagnosis: Acute pancreatitis secondary to alcohol abuse and hypertriglyemia Alcohol withdrawal syndrome Additional Diagnosis: Depression HTN Dilaterd CBD Hypokalemia resolved Discharge Disposition: home or self care Discharge Instructions General Discharge Information Code Status: Full Code Patient's Diet: Heart healthy Patient's Activity: Increase as tolerated Follow-Up Instructions/Appts: 1. Please follow up with Ernesto LAM at 9:30 am on 07/12/16 for alcohol dependence. 2. Please follow up with your primary doctor after discharge within 1 week Medications at Discharge Discharge Medications: Stop taking the following medications: Escitalopram Oxalate (Escitalopram Oxalate) 20 MG TABLET ORAL DAILY Diazepam (Valium) 5 MG TABLET ORAL 2 x Daily as needed as needed for anxiety/ spasms Risperidone (Risperidone) 1 MG TABLET ORAL TWICE DAILY Qty = 180 Continue taking these medications: Pravastatin Sodium (Pravastatin Sodium) 80 MG TABLET 1 Tablet ORAL DAILY Qty = 90 Comments: Last Taken:07/09/16 Time:0920am Pantoprazole Sodium (Pantoprazole Sodium) 40 MG TABLET.DR 1 Tablet ORAL DAILY Qty = 180 Comments: NOT TAKEN IN HOSPITAL Acetaminophen (Tylenol) 325 MG TABLET 2 Tablet ORAL EVERY SIX HOURS NEEDED as needed for PAIN Comments: IV Tylenol given 07/04/16 @ 0445am Folic Acid (Folic Acid) 1 MG TABLET 1 Milligram ORAL DAILY Qty = 15 Comments: Last Taken: 07/09/16 Time: 0920am Multivitamin (One Daily Multivitamin) 1 EACH TABLET 1 Tablet ORAL DAILY Qty = 15 Comments: Last Taken: 07/09/16 Time: 0922AM Thiamine HCl (Vitamin B-1) 100 MG TABLET 1 Tablet ORAL DAILY Qty = 15 Comments: Last Taken: 07/09/16 Time: 0922AM Nebivolol HCl (Bystolic) 5 MG TABLET 1 Tablet ORAL DAILY Qty = 90 Comments: Last Taken:07/09/16 Time:0920am Amlodipine Besylate (Amlodipine Besylate) 10 MG TABLET 1 Tablet ORAL DAILY Comments: Last Taken:07/09/16 Time:0921am Start taking the following new medications: Tramadol HCl (Tramadol HCl) 50 MG TABLET 50 Milligram ORAL EVERY SIX HOURS NEEDED as needed for PAIN SCALE 4-6 ( MODERATE) Qty = 20 No Refills Comments: Last Taken:07/08/16 Time:1639pm Gabapentin (Gabapentin) 300 MG CAPSULE 300 Milligram ORAL THREE TIMES DAILY Qty = 90 No Refills Comments: Last Taken:07/07/16 Time:1016am Lorazepam (Ativan) 0.5 MG TABLET 1 Tablet ORAL DAILY Qty = 2 No Refills Instructions: 1 pill at 10 pm 07/09 1 pill at 10 am 07/10 then follow up [facility] Comments: Last Taken:07/08/16 Time:2353pm The following medications have been changed: Old: Gabapentin (Gabapentin) 300 MG CAPSULE 1 Tablet ORAL THREE TIMES DAILY Days = 90 New: Gabapentin (Gabapentin) 300 MG CAPSULE 1 Tablet ORAL DAILY Days = 90 Comments: Last Taken: 07/07/16 Time: 1016am Copies To: ANDRA GONZALEZ MD; JULIO ARCE APRN; ARSENIO BROWN,RENU Saldaña Attending MD Review Statement Documenting Attending: ANDRA GONZALEZ MD Other Findings: The patient was seen and agree with the plan of care upon discharge.
[2016-07-09] MEDS ORDERED: GABAPENTIN300 M2 PO (14:19)
--- NOTE | 2016-07-09 15:54 | NUR ---
Patient much improved and approaching medical stability. Patient finishing up ativan taper, but still in agreement to [facility] for aftercare. Met with patient this afternoon. He was pleasant and engaged in interview. Reports motivation for sobriety but also acknowledges significant anxiety and depression. Concerned that his mental health needs will not be addressed appropriately. Reassurance offered. Intake secured at [facility] on 07/12/16 at 9:30am. Patient verbalizes understanding and in agreement.
--- NOTE | 2016-07-09 16:33 | PN- Psychiatry ---
Assessment/Plan Impression: This is a 61 y.o. male presenting with pancreatitis and ETOH withdrawal. The patient is nearing the end of his ETOG detox protocol, and is looking forward to discharging home with his spouse, and starting IOP on Tuesday. Depression and anxiety medications will be addressed at [facility]. We spent some time discussing Alcoholics Anonymous and how meetings and a sponsor help form a supportive network for alcohol cessation. I gave him a list of meetings in [place], and he will consider attending over the weekend. Home med history: Do not restart these: Diazepam 5 mg #60 for 30 days on 06/14/16 by SILVINO Richard (Dr. Ren's office ?) Risperidone 1 mg #180 for 90 days on 06/08/[address] Ren Escitalopram 20 mg PO #90 for 90 days by Kavya Franco (Dr. Ren's office ?) Yari Carrion CABLE C[employer]TER AND SWAGER, has arranged an intake at [facility] for 07/12/16. Suggestion: 1. Lorazepam detox taper: Continue taper to off. If the patient is discharged with a dose of lorazepam 0.5 mg, please instruct him not to drink or drive with this medication. 2. Continue gabapentin 300 mg PO TID. 3. Appointment at [facility] on 07/12/16. Timi Ramey APRN, Pager [phone] Subjective Subjective: A+OX3. Denies AVTH and no calvin delusions. Denies SI/HI. Feels safe to discharge home. Agrees to [facility].
== END 2016-07-09 15:20 | DRG 439 ==
LOC: ENRESERVTM → ENRESERVDT → ERH 15:15 → ERHI 18:48 → 2NB 18:48
PROVIDERS: Internal Medicine; Internal Medicine Interventional Cardiology; ADMIT Student in an Organized Health Care Education/Training Program
DX: K85.20 Alcohol induced acute pancreatitis without necrosis or infection (principal); F10.239 Alcohol dependence with withdrawal, unspecified; E87.2 Acidosis; I10 Essential (primary) hypertension; E78.5 Hyperlipidemia, unspecified; F32.9 Major depressive disorder, single episode, unspecified; F41.9 Anxiety disorder, unspecified; R31.9 Hematuria, unspecified; K21.9 Gastro-esophageal reflux disease without esophagitis; E87.6 Hypokalemia; E78.1 Pure hyperglyceridemia; K83.8 Other specified diseases of biliary tract; K86.0 Alcohol-induced chronic pancreatitis; Z87.891 Personal history of nicotine dependence
CPT/HCPCS: 2NBSP; 74181; 36415; 74177; 80307; 81001; 82436; 93005; 93010; 96374; 96375; 96376; 97116-GO; 97161-GP; 97530-GO; 99232; 99233; G0480; J0131; J1644; J1650; J2405; J3250; J3360; J3490; J7120

== ENCOUNTER 2016-09-24 07:30 | Inpatient (IN) | payer OTHER ==
[~2016-09-24] VITALS: Ht 172.7 cm; Wt 89.4 kg
[~2016-09-24 07:30] MED LIST changes: +AMLODIPINE BESY10 M1 PO; +ATIVAN0.5 M1 PO; +BYSTOLIC5 M1 PO; +NORVASC10 M1 PO; +OXYCODONE HCL5 M1 PO; +RISPERIDONE1 M1 PO; +TRAMADOL HCL50 M1 PO; +VALIUM5 M2 PO
--- NOTE | 2016-09-24 07:35 | NUR ---
PT TO ED C/O ABD PAIN RADIATING TO BACK X 1 WEEK. "I THINK IT'S ACUTE PANCREATITIS". PT STATES HE IS A DAILY DRINKER. C/O NAUSEA, DENIES V/D. DENIES S/S. PT APPEARS VERY ANXIOUS.
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
--- NOTE | 2016-09-24 08:07 | NUR ---
BLOOD WORK DRAWN AND SENT TO LAB: SST, LAV, BLUE, CAMACHO AND PINK TOPS.
--- NOTE | 2016-09-24 08:07 | NUR ---
PHARM CALLED FOR BANANA BAG.
[2016-09-24] MEDS ORDERED: DIAZEPAM5 M1 PO (08:08)
[2016-09-24 08:13] LABS: ABSOLUTE BASOPHIL COUNT 0 /CUMM (0.0-0.2); ABSOLUTE EOSINOPHIL COUNT 0.1 /CUMM (0.0-0.7); ABSOLUTE GRANULOCYTE CT 7.9 /CUMM (1.4-6.5); ABSOLUTE LYMPH COUNT 1.4 /CUMM (1.2-3.4); ABSOLUTE MONOCYTE COUNT 0.5 /CUMM (0.10-0.60); BASOPHIL % 0.4 % (0.0-2.0); HEMATOCRIT 44.6 % (42-52); MEAN CORPUSCULAR HGB 30.2 PG (27.0-31.0); MEAN CORPUSCULAR HGB CONC 34.7 G/DL (33.0-37.0); MEAN CORPUSCULAR VOLUME 87.2 FL (80.0-94.0); MEAN PLATELET VOLUME 6.7 FL (7.4-10.4); PLATELET COUNT 280 /CUMM (130-400); RBC DISTRIBUTION WIDTH 13.9 % (11.5-14.5); RED BLOOD CELL CT 5.11 /CUMM (4.70-6.10)
--- NOTE | 2016-09-24 09:48 | NUR ---
PT MEDICATED WITH DILAUDID PER EMAR. MOD AT BEDSIDE FOR EVAL. IV BANANA BAG INFUSING AT 125ML/HR.
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
--- NOTE | 2016-09-24 09:58 | NUR ---
PT HAS BED ASSIGNMENT 210-2. RN NOTIFIED.
--- NOTE | 2016-09-24 10:19 | NUR ---
REPORT GIVEN TO MELISSA HAWKINS.
[2016-09-24 10:33] LABS: PT 10.5 SEC (9.4-12.5)
--- NOTE | 2016-09-24 10:40 | NUR ---
REPORT FROM ROSS AGUILA. PT ARRIVED TO ROOM VIA STRETCHER AT 1040. IV INTACT WITH BANANA BAG RUNNING. VSS. 02/22 PAIN IN ABDOMEN. PAIN MEDICATION GIVEN. WILL CONTINUE TO MONITOR.
[2016-09-24 11:28] VITALS: BP 142/92
--- NOTE | 2016-09-24 13:57 | NUR ---
PER MD SALEH RUN BANANA BAG AT 250 ML/HR UNTIL FINISHED. MD SALEH ALSO WANTS TO RUN LR AFTER BANANA BAG IS COMPLETE. WILL CONTINUE TO MONITOR.
--- NOTE | 2016-09-24 14:08 | NUR ---
PT STATES THAT HE DOES NOT WANT ANY BLOOD THINNERS OR TO WEAR THE LEG COMPRESSION DEVICES BC OF A PREVIOUS BRAIN ANEURYSM. MD DESHPANDE MADE AWARE. WILL CONTINUE TO MONITOR.
--- NOTE | 2016-09-24 14:30 | Admission Certification ---
Admission Certification Certification Statement - As attending physician, I certify that at the time of - admission, based on clinical presentation, severity of - symptoms, need for further diagnostic testing and - therapeutic interventions, and risk of adverse outcomes - without in-hospital treatment, in my clinical assessment, - this patient requires an acute hospital stay for a minimum - of two nights or longer. I have also considered psychsocial - factors such as support system, advanced age, financial - issues, cognitive issues, and failed out-patient treatments, - past re-admission history, safety of patient, and lack of - compliance as applicable. Specific rationale supporting this admission is: Admit to the inpatient medical service for management of acute pancreatitis. He 'll be kept nothing by mouth. He will receive IV fluids and intravenous analgesia.
[2016-09-24 15:04] VITALS: BP 140/98
[2016-09-24 23:47] VITALS: BP 150/94
--- NOTE | 2016-09-25 07:13 | NUR ---
PT WITH TACHYCARDIA 120, AND SP02 80 ON RA. CIWA IS 2. PO ATIVAN GIVEN, IV DILAUID GIVEN. CALL TO DR. MERRILL. WILL GIVE BIOSTOLIC EARLY. AWAITING FROM PHARMACY. PLACED ON 3L NC. CURRENTLY 90%.
[2016-09-25 07:20] VITALS: BP 130/94
[2016-09-25 07:43] VITALS: BP 127/96
--- NOTE | 2016-09-25 07:54 | PN- Housestaff ---
BRE BROWN,ROSALBA 09/25/16 0753: Subjective Follow-up For: Alcohol pancreatitis Alcohol withdrawl Subjective: I saw and examined the patient today morning He just woke up, very drowsy. Unable to make a good conversation. Review of Systems Constitutional: Reports: see HPI. Comments: ROS cannot be appreciated as per the patient condition Objective Last 24 Hrs of Vital Signs/I&O Vital Signs Date Time Temp Pulse Resp B/P B/P Pulse O2 O2 Flow FiO2 Mean Ox Delivery Rate 09/25 0743 99.2 118 20 127/96 92 09/24 2347 99.0 118 20 150/94 91 Room Air 09/24 1504 98.0 92 20 140/98 94 Room Air 09/24 1142 98.0 92 18 94 Room Air 09/24 1128 98.0 89 18 142/92 94 Room Air 09/24 0939 105 20 153/93 95 Room Air 09/24 0826 Room Air Room Air 09/24 0822 114 Intake & Output 09/25 0800 09/25 0000 09/24 1600 Intake Total 850 2020 Output Total 200 875 Balance -200 -25 2020 Intake, IV 800 2000 Intake, Oral 50 20 Output, Urine 200 875 Patient 89.358 kg Weight Physical Exam General Appearance: Alert, Oriented X3, Cooperative Skin: No Rashes, No Breakdown HEENT: Atraumatic, PERRLA, EOMI Neck: Supple Cardiovascular: Normal S1, Normal S2 Lungs: Clear to Auscultation, Normal Air Movement Abdomen: Soft, No Hepatospenomegaly, moderately tender on palpation Neurological: Sensation Intact, Cranial Nerves 3-12 NL Extremities: No Clubbing, No Cyanosis, No Edema Current Medications: Current Medications Sig/Fabiola Start time Last Medication Dose Route Stop Time Status Admin Amlodipine Besylate 10 MG DAILY 09/25 1000 AC 09/25 PO 0856 Atorvastatin Calcium 80 MG 1700 09/24 1700 AC 09/24 PO 1754 Dextrose/Lactated 1,000 ML .Q5H 09/24 1430 AC 09/25 Ringer's IV 1156 Enoxaparin Sodium 40 MG DAILY 09/24 1943 AC SC Folic Acid 1 MG DAILY 09/25 1000 AC 09/25 PO 0856 Gabapentin 300 MG TID 09/24 1600 AC 09/25 PO 0856 Hydromorphone HCl 1 MG Q3P PRN 09/24 1430 AC 09/25 IV 1148 Ketorolac 15 MG Q6P PRN 09/24 1430 AC Tromethamine IV Lorazepam 2 MG Q6 09/24 1200 AC 09/25 PO 1149 Lorazepam 0 Q1P PRN 09/24 1045 AC 09/25 IV 0900 Magnesium Chloride 64 MG ONCE ONE 09/25 1430 DC PO 09/25 1431 Magnesium Oxide 400 MG BID 09/25 1355 DC PO Magnesium Oxide 400 MG BID 09/25 1115 AC 09/25 PO 09/25 2300 1224 Multivitamins 1 TAB DAILY 09/25 1000 AC 09/25 Therapeutic PO 0857 Nebivolol 5 MG DAILY 09/25 1000 AC 09/25 PO 0855 Omeprazole 40 MG DAILY AC 09/24 1426 AC 09/25 PO 0626 Thiamine HCl 100 MG DAILY 09/25 1000 AC 09/25 PO 0857 Last 24 Hrs of Lab/Felix Results Last 24 Hrs of Labs/Mics: Laboratory Tests 09/25/16 0624: Anion Gap 14, Estimated GFR > 60, BUN/Creatinine Ratio 15.0, Magnesium 1.6, Total Bilirubin 0.9, Direct Bilirubin 0.4, AST 55, ALT 70, Alkaline Phosphatase 115, Total Protein 6.6, Albumin 3.7, Triglycerides 349 H, Cholesterol 197, LDL Cholesterol, Calc 66, HDL Cholesterol 62 H, Cholesterol/HDL Ratio 3, CBC w Diff NO MAN DIFF REQ, RBC 4.74, MCV 89.2, MCH 30.2, RDW 14.4, MPV 7.2 L, Gran % 76.4 H, Lymphocytes % 15.1 L, Monocytes % 6.4, Eosinophils % 1.8, Basophils % 0.3, Absolute Granulocytes 7.9 H, Absolute Lymphocytes 1.6, Absolute Monocytes 0.7 H, Absolute Eosinophils 0.2, Absolute Basophils 0, PUBS MCHC 33.8 Orders CIWA Score (last 24 hrs): 0-20 Lines/Diet/Fluids Lines: peripheral lines Assessment/Plan Assessment: Patient is a 61 YO M with a PMH significant for HTN, HLD, alcohol withdrawal, alcohol detox with multiple admissions for acute pancreatitis secondary to alcohol and presented to [facility] with persistent abdominal pain 01/23. Admitted for alcohol induced pancreatitis. Blood pressure 153/95, heart rate of 105, respiration rate of 18, temperature of 97.8, saturation of 96% on room air Significant labs include AST/ALT - 125/98 at admission ALP - 148 Lipid levels - TG's - 810--> 349, cholesterol - 260 --> 197 after hydration Lipase - 745 Admitted to general medicine floor pancreatitis * Secondary to alcohol, high TG's * NPO - receiving medications by mouth * Started on Dextrose ringer lactate - so far received 4L @200ml/hr, changed to 125ml/hr today * Pain control with Dilaudid Q3PRN, ketorolac IV 15mg Q6PRN. * Received 6mg Dilaudid, single dose of [id number] so far. * Omez 40mg daily Alcohol withdrawl * [facility] Protocol 0-20 * Receiving both scheduled and PRN doses of ativan continuously. * Over the past 24hrs - 15mg Ativan given (10mg oral, 5mg IV) * started on folate/thiamine/multivitamin after a banana bag. * Gabapentine 300mg TID -?? alcohol induced neuropathy HLD * continue Atorvastatin 80mg daily HTN * On Norvasc 10mg and Nebivolol 5mg * Adequately controlled with those medications DVT prophylaxis * SC lovenox Code status * Full code Problem List: 1. Pancreatitis, alcoholic, acute 2. Abdominal pain 3. Alcohol withdrawal Pain Ratin Pain Location: Abdomen Pain Goal: Pain 4 or less Pain Plan: Dilaudid Ketorolac Tomorrow's Labs & Rationales: BEP to monitor elctrolytes in alcoholic Lipid panel to monitor TG;s LORETTA BROWN,AMIR 09/25/16 1121: Attending MD Review Statement Attending Statement Attending MD Statement: examined this patient, discuss w/resident/PA/ROBOTIC MACHINE OPERATOR, agreed w/resident/PA/ROBOTIC MACHINE OPERATOR, reviewed EMR data (avail), discussed with nursing
[2016-09-25 08:36] LABS: ABSOLUTE BASOPHIL COUNT 0 /CUMM (0.0-0.2); ABSOLUTE EOSINOPHIL COUNT 0.2 /CUMM (0.0-0.7); ABSOLUTE GRANULOCYTE CT 7.9 /CUMM (1.4-6.5); ABSOLUTE LYMPH COUNT 1.6 /CUMM (1.2-3.4); ABSOLUTE MONOCYTE COUNT 0.7 /CUMM (0.10-0.60); BASOPHIL % 0.3 % (0.0-2.0); EOSINOPHIL % 1.8 % (0-5); GRANULOCYTE % 76.4 % (42.2-75.2); HEMATOCRIT 42.3 % (42-52); MEAN CORPUSCULAR HGB 30.2 PG (27.0-31.0); MEAN CORPUSCULAR HGB CONC 33.8 G/DL (33.0-37.0); MEAN CORPUSCULAR VOLUME 89.2 FL (80.0-94.0); MEAN PLATELET VOLUME 7.2 FL (7.4-10.4); PLATELET COUNT 222 /CUMM (130-400); RBC DISTRIBUTION WIDTH 14.4 % (11.5-14.5); RED BLOOD CELL CT 4.74 /CUMM (4.70-6.10); WHITE BLOOD CELL COUNT 10.3 /CUMM (4.8-10.8)
[2016-09-25 15:05] VITALS: BP 122/80
[2016-09-25 22:10] VITALS: BP 102/70
[2016-09-26 06:46] VITALS: BP 128/86
--- NOTE | 2016-09-26 09:01 | PN- Housestaff ---
JERAMY BROWN,ODALYS 09/26/16 0901: Subjective Follow-up For: Alcohol pancreatitis Alcohol withdrawl Complaints: no complaints Subjective: I followed up and examined the patient today. He is resting comfortably in his bed, not in distress, does not offer any complaints, vitals have been stable, no events overnight. Review of Systems Constitutional: Reports: no symptoms. Objective Last 24 Hrs of Vital Signs/I&O Vital Signs Date Time Temp Pulse Resp B/P B/P Pulse O2 O2 Flow FiO2 Mean Ox Delivery Rate 09/26 2239 97.8 78 20 124/78 94 Nasal Cannula 09/26 1600 97.7 74 20 120/64 09/26 1600 98 Nasal 4.0L Cannula 09/26 1456 97.7 74 20 120/64 98 Nasal 4.0L Cannula 09/26 0917 86 126/84 09/26 0916 86 126/84 09/26 0800 94 Nasal 4.0L Cannula 09/26 0646 97.5 82 20 128/86 94 Nasal 4.0L Cannula 09/26 0000 97 Nasal 4.0L Cannula Intake & Output 09/26 1600 09/26 0800 09/26 0000 Intake Total 1080 1100 550 Output Total 464 179 8084 Balance 280 300 -550 Intake, IV 600 1000 500 Intake, Oral 480 100 50 Number 2 1 Bowel Movements Output, Urine 390 147 7823 Physical Exam General Appearance: Alert, Oriented X3, Cooperative, No Acute Distress, obese Other Physical Findings: Skin: No Rashes, No Breakdown HEENT: Atraumatic, PERRLA, EOMI Neck: Supple Cardiovascular: Normal S1, Normal S2 Lungs: Clear to Auscultation, Normal Air Movement Abdomen: Soft, No Hepatospenomegaly, no tenderness appreciated today Neurological: Sensation Intact, Cranial Nerves 3-12 NL Extremities: No Clubbing, No Cyanosis, No Edema Current Medications: Current Medications Sig/Fabiola Start time Last Medication Dose Route Stop Time Status Admin Amlodipine Besylate 10 MG DAILY 09/25 1000 AC 09/26 PO 0916 Atorvastatin Calcium 80 MG 1700 09/24 1700 AC 09/26 PO 1612 Dextrose/Lactated 1,000 ML .[id number] 09/24 1430 AC 09/26 Ringer's IV 2126 Enoxaparin Sodium 40 MG DAILY 09/24 1943 AC SC Folic Acid 1 MG DAILY 09/25 1000 AC 09/26 PO 0916 Gabapentin 300 MG TID 09/24 1600 AC 09/26 PO 2128 Hydromorphone HCl 1 MG Q3P PRN 09/24 1430 AC 09/26 IV 2241 Ketorolac 15 MG Q6P PRN 09/24 1430 AC 09/26 Tromethamine IV 1247 Lorazepam 1.5 MG Q6 09/26 1200 AC 09/26 PO 1748 Lorazepam 2 MG Q6 09/24 1200 DC 09/26 PO 0556 Lorazepam 0 Q1P PRN 09/24 1045 AC 09/25 IV 0900 Magnesium Oxide 400 MG BID 09/25 1115 DC 09/25 PO 09/25 2300 2230 Multivitamins 1 TAB DAILY 09/25 1000 AC 09/26 Therapeutic PO 0916 Nebivolol 5 MG DAILY 09/25 1000 AC 09/26 PO 0917 Omeprazole 40 MG DAILY AC 09/24 1426 AC 09/26 PO 0556 Ondansetron HCl 4 MG Q6P PRN 09/26 0645 AC 09/26 IV 1622 Thiamine HCl 100 MG DAILY 09/25 1000 AC 09/26 PO 0916 Last 24 Hrs of Lab/Felix Results Last 24 Hrs of Labs/Mics: Laboratory Tests 09/26/16 0622: Anion Gap 7, Estimated GFR > 60, BUN/Creatinine Ratio 8.6, Magnesium 1.9, Total Bilirubin 0.6, Direct Bilirubin 0.3, AST 33, ALT 45, Alkaline Phosphatase 103, Total Protein 5.5 L, Albumin 2.8 L, Triglycerides 176 H, Cholesterol 165, LDL Cholesterol, Calc 80, HDL Cholesterol 50, Cholesterol/HDL Ratio 3 Orders CIWA Score (last 24 hrs): 0-10 (mostly for anxiety, agitation, sweating, tremors), now at 1. Assessment/Plan Assessment: Patient is a 61 YO M with a PMH significant for HTN, HLD, alcohol withdrawal, alcohol detox with multiple admissions for acute pancreatitis secondary to alcohol and presented to [facility] with persistent abdominal pain 01/23. Admitted for alcohol induced pancreatitis. Blood pressure 153/95, heart rate of 105, respiration rate of 18, temperature of 97.8, saturation of 96% on room air Significant labs include AST/ALT - 125/98 at admission, ALP - 148 Lipid levels - TG's - 810--> 349, cholesterol - 260 --> 197 after hydration Lipase - 745 Admitted to general medicine floor for the following conditions: Pancreatitis * Secondary to alcohol, high TG's * Patient was nothing by mouth until this morning, has now been advanced to full liquid diet. If he tolerates it, then can proceed to advancing his diet further. * Continue Dextrose ringer lactate -initially received at 200mL/hr, then at 125ml/hr, now reduced to 75 mL per hour today. * Pain control with Dilaudid Q3PRN, ketorolac IV 15mg Q6PRN. * Received 6mg Dilaudid, single dose of [id number] so far. * Omez 40mg daily Alcohol withdrawl * CIWA Protocol 0-6, mainly for anxiety, tremors, sweating yesterday at 2 PM. Currently at 1, for tremors. He received 10 mg of oral Ativan in the last 24 hours and 1 mg of when necessary IV Ativan. His ativan has been decreased from 2 mg to 1.5 mg every 6 hours scheduled dose today. * Continued folate/thiamine/multivitamin after a banana bag. 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 Patient well aware of the DVT prophylaxis indications, and consequences. Yet refuses Lovenox as well as Alps. Code status * Full code Problem List: 1. Pancreatitis, alcoholic, acute 2. Alcohol withdrawal 3. Brain aneurysm Pain Ratin Pain Location: abd, sometimes Pain Goal: Pain 4 or less Pain Plan: prn Tomorrow's Labs & Rationales: BEP, LFT to follow-up and repeat electrolytes, and to follow-up liver function LORETTA BROWN,AMIR 09/26/16 1257: Attending MD Review Statement Attending Statement Attending MD Statement: examined this patient, discuss w/resident/PA/MICROGRAPHICS SERVICES SUPERVISOR, agreed w/resident/PA/MICROGRAPHICS SERVICES SUPERVISOR, reviewed EMR data (avail), discussed with nursing Attending Assessment/Plan: Recently requiring Oxygen. Agree with obtaining CXR. Reduced IVF, start clear. Cont to monitor. Rest of the plan as per resident's note
[2016-09-26 14:56] VITALS: BP 120/64
[2016-09-26 16:00] VITALS: BP 120/64
--- NOTE | 2016-09-26 17:55 | NUR ---
PORTABLE X RAY IN ROOM FOR CXR.
--- NOTE | 2016-09-26 18:35 | RADIOLOGY REPORT ---
EXAMINATION: XR CHEST PORTABLE CLINICAL INFORMATION: Increased oxygen demand. COMPARISON: Chest radiography 07/03/2016. TECHNIQUE: Portable frontal view of the chest was obtained. FINDINGS: The lungs are slightly hypoexpanded. No evidence of new consolidation, pleural effusion, or pneumothorax. Note should be made that technical factors limit evaluation for left lower lobe consolidation. No overt pulmonary edema. No mediastinal widening. No acute osseous abnormalities. IMPRESSION: No convincing acute pulmonary pathology. Technical factors limit evaluation for left lower lobe consolidation; please correlate clinically.
[2016-09-26 22:39] VITALS: BP 124/78
[2016-09-27] VITALS: BP 124/92
[2016-09-27 05:56] VITALS: BP 140/100
[2016-09-27 06:14] VITALS: BP 130/86
--- NOTE | 2016-09-27 07:34 | PN- Housestaff ---
JERAMY BROWN,ODALYS 09/27/16 0734: Subjective Follow-up For: Alcohol pancreatitis Alcohol withdrawl Complaints: wants regular food Subjective: I followed up and examined the patient today. He is resting comfortably in bed, not in distress, still on additional oxygen via NC at 4L/min. He wants to restart rgular food as soon as possible, has tolerated liquid diet well yesterday. VItals have been stable and no overnight issues. No pain abd, no fever, no nausea/vomitting. CIWA 0-2 over past 24 hrs. Hasn't required any PRN Ativan. Received 6mg of PO Ativan as scheduled. Can go down further on it today. Review of Systems Constitutional: Reports: see HPI. Objective Last 24 Hrs of Vital Signs/I&O Vital Signs Date Time Temp Pulse Resp B/P B/P Pulse O2 O2 Flow FiO2 Mean Ox Delivery Rate 09/27 2250 98.0 74 18 128/78 94 Room Air 09/27 1600 94 Nasal 2.0L Cannula 09/27 1445 97.7 81 20 130/83 94 Nasal 4.0L Cannula 09/27 1424 Nasal 2.0L Cannula 09/27 0904 88 128/84 09/27 0904 88 128/84 09/27 0800 91 Nasal 4.0L Cannula 09/27 0614 130/86 09/27 0556 97.7 86 20 140/100 91 Nasal 4.0L Cannula 09/27 0000 98.2 88 20 124/92 09/27 0000 00 Nasal 4.0L Cannula Intake & Output 09/27 1600 09/27 0800 09/27 0000 Intake Total 975 1050 1320 Output Total 850 1400 1325 Balance 125 -350 -5 Intake, IV 375 630 600 Intake, Oral 600 420 720 Output, Urine 850 1400 1325 Patient 89.358 kg Weight Physical Exam General Appearance: Alert, Oriented X3, Cooperative, No Acute Distress, obese Other Physical Findings: Skin: No Rashes, No Breakdown HEENT: Atraumatic, PERRLA, EOMI Neck: Supple Cardiovascular: Normal S1, Normal S2 Lungs: Clear to Auscultation, Normal Air Movement Abdomen: Soft, No Hepatospenomegaly, no tenderness appreciated today Neurological: Sensation Intact, Cranial Nerves 3-12 NL Extremities: No Clubbing, No Cyanosis, No Edema Current Medications: Current Medications Sig/Fabiola Start time Last Medication Dose Route Stop Time Status Admin Amlodipine Besylate 10 MG DAILY 09/25 1000 AC 09/27 PO 0904 Atorvastatin Calcium 80 MG 1700 09/24 1700 AC 09/27 PO 1615 Dextrose/Lactated 1,000 ML .[id number] 09/24 1430 AC 09/27 Ringer's IV 0808 Enoxaparin Sodium 40 MG DAILY 09/24 1943 AC SC Folic Acid 1 MG DAILY 09/25 1000 AC 09/27 PO 0903 Gabapentin 300 MG TID 09/24 1600 AC 09/27 PO 2203 Hydromorphone HCl 1 MG Q3P PRN 09/24 1430 DC 09/27 IV 0617 Ketorolac 15 MG Q6PRN PRN 09/27 1630 AC Tromethamine IV Ketorolac 15 MG Q6P PRN 09/24 1430 DC 09/26 Tromethamine IV 1247 Lorazepam 1 MG Q6 09/27 1200 AC 09/27 PO 1713 Lorazepam 1.5 MG Q6 09/26 1200 DC 09/27 PO 0547 Lorazepam 0 Q1P PRN 09/24 1045 AC 09/25 IV 0900 Multivitamins 1 TAB DAILY 09/25 1000 AC 09/27 Therapeutic PO 0904 Nebivolol 5 MG DAILY 09/25 1000 AC 09/27 PO 0904 Omeprazole 40 MG DAILY AC 09/24 1426 AC 09/27 PO 0550 Ondansetron HCl 4 MG Q6P PRN 09/26 0645 AC 09/26 IV 1622 Patient Medication 1 ED .STK-MED ONE 09/27 1251 MD Teaching ED 09/27 1252 Patient Medication 1 UNIT ONE NR 09/27 1115 DC 09/27 Teaching ED 09/27 1715 1616 Potassium Chloride 40 MEQ ONCE ONE 09/27 1345 DC 09/27 PO 09/27 1346 1347 Potassium Chloride 10 MEQ Q1H 09/27 1345 DC 09/27 IV 09/27 1446 1450 Thiamine HCl 100 MG DAILY 09/25 1000 AC 09/27 PO 0904 Tramadol HCl 50 MG ONCE ONE 09/27 2145 DC 09/27 PO 09/27 2146 2203 Tramadol HCl 50 MG Q6P PRN 09/27 1115 AC 09/27 PO 1713 Last 24 Hrs of Lab/Felix Results Last 24 Hrs of Labs/Mics: Laboratory Tests 09/27/16 1654: D-Dimer 588 H 09/27/16 0628: Anion Gap 10, Estimated GFR > 60, BUN/Creatinine Ratio 8.3, Total Bilirubin 0.6, Direct Bilirubin 0.3, AST 30, ALT 43, Alkaline Phosphatase 105, Total Protein 5.7 L, Albumin 2.9 L, CBC w Diff NO MAN DIFF REQ, RBC 3.94 L, MCV 89.0, MCH 30.1, RDW 14.0, MPV 7.3 L, Gran % 70.9, Lymphocytes % 17.7 L, Monocytes % 6.1, Eosinophils % 5.0, Basophils % 0.3, Absolute Granulocytes 6.2, Absolute Lymphocytes 1.5, Absolute Monocytes 0.5, Absolute Eosinophils 0.4, Absolute Basophils 0, PUBS MCHC 33.9 Assessment/Plan Assessment: Patient is a 61 yo M with a PMH significant for HTN, HLD, alcohol withdrawal, alcohol detox with multiple admissions for acute pancreatitis secondary to alcohol and presented to [facility] with persistent abdominal pain 01/23. Admitted for alcohol induced pancreatitis. Blood pressure 153/95, heart rate of 105, respiration rate of 18, temperature of 97.8, saturation of 96% on room air Significant labs include AST/ALT - 125/98 at admission, ALP - 148 Lipid levels - TG's - 810--> 349, cholesterol - 260 --> 197 after hydration Lipase - 745 Currently the patient is being managed in the general medicine floor for the following conditions: Pancreatitis * Secondary to alcohol, high TG's * Patient was initially taking nothing by mouth, when diet was advanced to full liquid diet yesterday he tolerated well. Planned to advance his diet and to watch for pain abd, nausea, vomitting. * Continue Dextrose ringer lactate -initially received at 200mL/hr, then at 125ml/hr, now reduced to 75 mL per hour since yesterday. * Pain control with Dilaudid Q3PRN has been STOPPED as this might have caused some drowsiness during the morning rounds. Continue ketorolac IV 15mg Q6PRN. * Omez 40mg daily Acute onset hypoxia, requiring additional oxygen via NC. Of note, patient does not have oxygen at home otherwise and also does not have any other resp symptoms , or fever to support the diagnosis of PNA. He was able to be weaned off to O2 at 3L/min for ambulation and 2 L/min at rest today. Incentive spirometry to continue. Will check d-dimer. If this is significantly increased, please check CTA of chest to rule out PE. Alcohol withdrawl * CIWA Protocol 0-2. Currently at 0. He received 6 mg of oral Ativan in the last 24 hours and NO PRN IV Ativan. Thus, his ativan has been further decreased from 1.5 mg to 1 mg every 6 hours scheduled dose today. * Continued folate/thiamine/multivitamin after a banana bag. 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 Patient well aware of the DVT prophylaxis indications, and consequences. Yet refuses Lovenox as well as Alps. Code status * Full code Problem List: 1. Pancreatitis, alcoholic, acute 2. Alcohol withdrawal Pain Ratin Pain Location: mild abd pain, better today Pain Goal: Pain 4 or less Pain Plan: pain meds revised to reduce opiates today Tomorrow's Labs & Rationales: no labs tomorrow HERNESTO SALEH MD 09/27/16 1146: Attending MD Review Statement Attending Statement Attending MD Statement: examined this patient, discuss w/resident/PA/HEALTH CARE COORDINATOR, agreed w/resident/PA/HEALTH CARE COORDINATOR, reviewed EMR data (avail), discussed with nursing, discussed with case mgmt, amended to note Attending Assessment/Plan: Patient seen and examined. Drowsy but arousable. Not in any acute distress. No issues overnight reported by nursing staff. He continues to require oxygen supplementation. Currently on 4 L of oxygen. He denies chest pain or shortness of breath. Denies palpitations. Chest x-ray done over the weekend shows no evidence of vascular congestion acute pulmonary process. On examination he has no jugular venous distention. Breath sounds are mildly diminished in the bases but otherwise clear to auscultation. Abdomen is soft and nontender. He has no peripheral edema. He has no calf tenderness or swelling. Problems: 1. Acute hypoxic respiratory failure 2. Recurrent pancreatitis 3. Alcohol withdrawal syndrome. Plan: -Etiology of his acute hypoxia is unclear present. He shows no evidence of volume overload. No acute infectious processes noted on chest x-ray. After counseling her pain though he has been refusing his pharmacological and mechanical DVT prophylaxis. Check d-dimer. If elevated obtain CT angiogram to rule out pulmonary embolism. -In view of his drowsiness on current use of benzodiazepine therapy, recommend discontinuation of IV Dilaudid. He reports his pain is better controlled today. Utilize Toradol and tramadol as needed For pain control. -Begin incentive spirometry. -Continue diet as tolerated. Mobilize patient.
[2016-09-27 08:43] LABS: ABSOLUTE BASOPHIL COUNT 0 /CUMM (0.0-0.2); ABSOLUTE EOSINOPHIL COUNT 0.4 /CUMM (0.0-0.7); ABSOLUTE GRANULOCYTE CT 6.2 /CUMM (1.4-6.5); ABSOLUTE LYMPH COUNT 1.5 /CUMM (1.2-3.4); ABSOLUTE MONOCYTE COUNT 0.5 /CUMM (0.10-0.60); BASOPHIL % 0.3 % (0.0-2.0); GRANULOCYTE % 70.9 % (42.2-75.2); MEAN CORPUSCULAR HGB 30.1 PG (27.0-31.0); MEAN CORPUSCULAR HGB CONC 33.9 G/DL (33.0-37.0); MEAN PLATELET VOLUME 7.3 FL (7.4-10.4); PLATELET COUNT 217 /CUMM (130-400); RED BLOOD CELL CT 3.94 /CUMM (4.70-6.10); WHITE BLOOD CELL COUNT 8.7 /CUMM (4.8-10.8)
[2016-09-27 14:45] VITALS: BP 130/83
--- NOTE | 2016-09-27 20:17 | CT SCAN REPORT ---
EXAMINATION: CT ANGIOGRAM OF THE CHEST WITH AND WITHOUT CONTRAST (CT PULMONARY ANGIOGRAM FOR PE) CLINICAL INFORMATION: Increased oxygen demand. COMPARISON: Radiograph from 09/26/2016. TECHNIQUE: Prior to contrast administration, noncontrast localization images were obtained. Subsequently, multidetector volumetric imaging was performed from the thoracic inlet to below the diaphragms following the administration of 80 mL Optiray 350 intravenous contrast. No contrast reaction reported. Sagittal, coronal, and MIP oblique sagittal reformatted images were obtained on the CT workstation, uploaded to PACS, and reviewed. Total exam dose-length product 475 mGy-cm. FINDINGS: QUALITY OF STUDY/CONTRAST BOLUS: Satisfactory PULMONARY ARTERIES: No central or segmental pulmonary emboli. THORACIC AORTA: No aneurysm or dissection. LUNG: The central airways are patent. Tiny bilateral pleural effusions with associated dependent atelectasis. Tree in bud groundglass nodular opacities are seen in the right upper lobe perihilar region. No pneumothorax. MEDIASTINUM: The thyroid gland is unremarkable. The heart is normal in size. Coronary artery calcifications are present. No mediastinal lymphadenopathy. No evidence of septal bowing or right heart strain. CHEST WALL/AXILLA: No axillary or internal mammary lymphadenopathy. Mild bilateral gynecomastia. OSSEOUS STRUCTURES: No acute or suspicious osseous abnormality. UPPER ABDOMEN: Unremarkable. No reflux of contrast into the hepatic veins to suggest elevated right heart pressures. IMPRESSION: 1. No pulmonary embolism. 2. Tiny bilateral pleural effusions with associated atelectasis. 3. Groundglass opacities in the right upper lobe perihilar region could be infectious or inflammatory in etiology. VTE: negative
[2016-09-27 22:50] VITALS: BP 128/78
--- NOTE | 2016-09-28 02:43 | Event Note ---
Event Note Event Note: S: Recived a page stating that Mr Mendez still continues to be in a lot of pain. Despite ordering him an extra dose of Tramadol at 21.44 B: Went to bedside of the patient. He was alert and oriented. States that he has 9/10 epigastric pain which fluctuates in nature between a sharp and throbbing pain. The patient also felt that his current pain regimen is ineffective. A/R: Brief physical exam was WNL. Epigastric tenderness noted. No Guarding, No Rebound. Vitals Stable. Shared with him results of CTA. Ordered a one time 1 mg of Morphine IV. 4.05 am. Patient endorses some relief for 45 minutes. Still continues to be in pain. 1 mg of Morphine IV. Resident Made Aware. Will Continue monitor.
[2016-09-28 06:14] VITALS: BP 130/100
--- NOTE | 2016-09-28 07:16 | PN- Housestaff ---
JERAMY BROWN,ODALYS 09/28/16 0716: Subjective Follow-up For: Alcohol pancreatitis Alcohol withdrawl Complaints: pain management not round the clock per this schedule Subjective: I followed up and examined the patient today. He is resting comfortably in his bed, is not in distress, is not using any additional oxygen which is a change from yesterday, mentions that pain management was not adequate overnight and had to be given multiple doses of morphine by the night staff before he could go to bed. Vitals have been stable, no other issues. Of note, CIWA score has been 0-5, mostly for anxiety and is stationed, is on 1 mg by mouth Ativan and IV Ativan when necessary. Patient was concerned that recently (since before admission), his best tissue has been enlarging and the overlying skin is more sensitive to touch. He wanted to know if his male hormones were intact. This was discussed during the morning rounds with the patient himself as well with the attending physician and was answered that long-standing alcohol use can lead to decrease breakdown of estrogen and its related products which can cause gynecomastia. His home medication list was revised and did not seem to contain side effects of gynecomastia. Review of Systems Constitutional: Reports: see HPI. Objective Last 24 Hrs of Vital Signs/I&O Vital Signs Date Time Temp Pulse Resp B/P B/P Pulse O2 O2 Flow FiO2 Mean Ox Delivery Rate 09/28 1505 97.9 77 20 146/98 95 Room Air 09/28 0834 130/100 09/28 0834 130/100 09/28 0800 130/100 09/28 0614 97.7 79 20 130/100 91 Room Air 09/27 2250 98.0 74 18 128/78 94 Room Air Intake & Output 09/28 1600 09/28 0800 09/28 0000 Intake Total 1282 900 600 Output Total 850 1000 1580 Balance 432 -100 -980 Intake, IV 562 600 Intake, Oral 720 300 600 Number 0 Bowel Movements Output, Urine 850 1000 1580 Physical Exam General Appearance: Alert, Oriented X3, Cooperative, No Acute Distress Other Physical Findings: Skin: No Rashes, No Breakdown HEENT: Atraumatic, PERRLA, EOMI Neck: Supple Cardiovascular: Normal S1, Normal S2 Lungs: Clear to Auscultation, Normal Air Movement Abdomen: Soft, No Hepatospenomegaly, no tenderness appreciated today Neurological: Sensation Intact, Cranial Nerves 3-12 NL Extremities: No Clubbing, No Cyanosis, No Edema Chest exam: Slightly enlarged bilateral breast tissue, no nodules felt, patient complained of subjective sensitivity around areolar area Current Medications: Current Medications Sig/Fabiola Start time Last Medication Dose Route Stop Time Status Admin Amlodipine Besylate 10 MG DAILY 09/25 1000 AC 09/28 PO 0834 Atorvastatin Calcium 80 MG 1700 09/24 1700 AC 09/28 PO 1625 Dextrose/Lactated 1,000 ML .[id number] 09/24 1430 AC 09/28 Ringer's IV 0614 Enoxaparin Sodium 40 MG DAILY 09/24 1943 AC SC Folic Acid 1 MG DAILY 09/25 1000 AC 09/28 PO 0833 Gabapentin 300 MG TID 09/24 1600 AC 09/28 PO 1625 Ketorolac 15 MG Q6PRN PRN 09/27 1630 AC Tromethamine IV Lorazepam 0.5 MG BID 09/28 1000 AC 09/28 PO 09/29 1200 1053 Lorazepam 1 MG Q6 09/27 1200 DC 09/28 PO 0606 Lorazepam 0 Q1P PRN 09/24 1045 AC 09/25 IV 0900 Morphine Sulfate 1 MG ONCE ONE 09/28 0700 DC IV 09/28 0701 Morphine Sulfate 1 MG ONCE ONE 09/28 0415 DC 09/28 IV 09/28 0416 0425 Morphine Sulfate 1 MG ONCE ONE 09/28 0245 DC 09/28 IV 09/28 0246 0300 Multivitamins 1 TAB DAILY 09/25 1000 AC 09/28 Therapeutic PO 0834 Nebivolol 5 MG DAILY 09/25 1000 AC 09/28 PO 0834 Omeprazole 40 MG DAILY AC 09/24 1426 AC 09/28 PO 0606 Ondansetron HCl 4 MG Q6P PRN 09/26 0645 AC 09/26 IV 1622 Thiamine HCl 100 MG DAILY 09/25 1000 AC 09/28 PO 0834 Tramadol HCl 50 MG ONCE ONE 09/27 2145 DC 09/27 PO 09/27 2146 2203 Tramadol HCl 50 MG Q6P PRN 09/27 1115 AC 09/28 PO 1626 Assessment/Plan Assessment: Patient is a 61 yo M with a PMH significant for HTN, HLD, alcohol withdrawal, alcohol detox with multiple admissions for acute pancreatitis secondary to alcohol and presented to [facility] with persistent abdominal pain 01/23. Admitted for alcohol induced pancreatitis. Blood pressure 153/95, heart rate of 105, respiration rate of 18, temperature of 97.8, saturation of 96% on room air. Significant labs include: AST/ALT - 125/98 at admission, ALP - 148 Lipid levels - TG's - 810--> 349, cholesterol - 260 --> 197 after hydration, Lipase - 745 Currently the patient is being managed in the general medicine floor for the following conditions: Pancreatitis * Secondary to alcohol, high TG's * Patient was initially managed nothing by mouth, later advanced his diet which he is tolerating well now. * Initially was on high flow resuscitation, now been reduced as he has been taking by mouth, is stable and pancreatitis resolving. * Pain control with Dilaudid Q3PRN has been STOPPED as this might have caused some drowsiness during the morning rounds yesterday. Continue ketorolac IV 15mg Q6PRN. * Omez 40mg daily * Patient was complaining of persistent abdominal and back pain although mild, thus underwent CAT scan of abdomen and pelvis which did not reveal any complications of pancreatitis or intra-abdominal acute pathology. He did mention however of bilateral small pleural effusion. Of note, the patient is not in respiratory distress of any kind. In fact he is off nasal cannula without distress currently. Acute onset hypoxia, requiring additional oxygen. Patient normally does not have additional oxygen at home. He did require additional oxygen at a maximum of 4 L/m until yesterday, at which point PE To be ruled out by CT angiography, as his d-dimer was high. Currently patient is asymptomatic at room air. Alcohol withdrawl * CIWA Protocol 0-5. Currently at 0. He was receiving 1 mg of by mouth Ativan, now has been changed to 0.5 mg of by mouth Ativan twice a day today and one dose tomorrow. * Continued folate/thiamine/multivitamin after a banana bag. 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 DVT prophylaxis * SC lovenox, which he has been refusing due to his aneurysm, and has also been refusing ALPS. Patient well aware of the DVT prophylaxis indications, and consequences. Yet refuses Lovenox as well as Alps. Code status * Full code Problem List: 1. Pancreatitis, alcoholic, acute 2. Alcohol withdrawal Pain Ratin Pain Location: anterior abd, and low back- mild Pain Goal: Pain 4 or less Pain Plan: prn, non opiates Tomorrow's Labs & Rationales: - HERNESTO SALEH MD 09/28/16 1417: Attending MD Review Statement Attending Statement Attending MD Statement: examined this patient, discuss w/resident/PA/ORGANIZATIONAL RESEARCH CONSULTANT, agreed w/resident/PA/ORGANIZATIONAL RESEARCH CONSULTANT, reviewed EMR data (avail), discussed with nursing, discussed with case mgmt, amended to note Attending Assessment/Plan: Patient seen and examined. Alert and oriented 3. Off oxygen supplementation. Tolerating clear to nausea vomiting. He however continues to complain of abdominal pain on and off. He does admit that the pain has improved since admission but continues to request opioid analgesics declining to take normal. Analgesics that have been ordered for him. On account of his complaint of ongoing abdominal pain CT abdomen was done that showed improving uncomplicated pancreatitis with improving mild matilde-pancreatic edema around the pancreatic tail. Incidentally noted is a benign enhancing mass in the hepatic segment consistent with a small hemangioma. He has small bilateral pleural effusions and associated subsegmental atelectasis. Recommendations: -Recommend pain management with tramadol. May utilize IV Toradol for breakthrough pain. -Continue diet as tolerated. -Anticipate discharge tomorrow.
[2016-09-28 08:00] VITALS: BP 130/100
--- NOTE | 2016-09-28 13:01 | CT SCAN REPORT ---
EXAMINATION: CT ABDOMEN AND PELVIS WITH CONTRAST CLINICAL INFORMATION: Abdominal pain. Presumptive diagnosis of pancreatitis. COMPARISON: CT scan of the abdomen and pelvis dated 07/03/2016 and 03/17/2016. TECHNIQUE: Multidetector CT volumetric acquisition of the abdomen and pelvis was performed after the administration of 95 mL of intravenous Optiray 320. The data set was reformatted in the sagittal and coronal planes and reviewed on an independent workstation. DLP: 870.85 mGy-cm. FINDINGS: LOWER CHEST: Interval development of small bilateral pleural effusions is noted with associated dependent atelectasis in both lower lobes. LIVER, GALLBLADDER, BILIARY TREE: Diffuse hepatic steatosis is seen with a stable 0.7 x 1.1 cm hyper enhancing nodule in hepatic segment 6 (series 2, image 52), unchanged dating back to 03/17/2016, consistent with a benign finding, such as a hemangioma. Liver otherwise unremarkable. Hepatic and portal veins patent. Gallbladder partially distended and unremarkable. PANCREAS: There is a small amount of peripancreatic stranding seen around the pancreatic tail, causing thickening of the left anterior Gerota's fascia. Findings have improved when compared to the prior study and are consistent with mild pancreatitis. The pancreas is otherwise unremarkable with normal enhancement seen and no pancreatic mass, ductal dilatation or focal peripancreatic fluid collection seen. SPLEEN: Normal size and appearance. Splenic vein patent. ADRENAL GLANDS AND KIDNEYS: Adrenal glands normal. Kidneys bilaterally symmetric in size and function. There is a 1.4 cm diameter low-attenuation mass in the upper pole cortex of the right kidney, unchanged from prior studies, most consistent with a small cyst. No focal mass, hydronephrosis, nephrolithiasis or perinephric stranding. URETERS AND BLADDER: Ureters decompressed and within normal limits. Bladder partially distended, likely accounting for the diffusely thick walled appearance. Bladder otherwise unremarkable. PELVIC ORGANS: Unremarkable. GASTROINTESTINAL TRACT: There is a small hiatal hernia. A few scattered descending colonic and sigmoid colonic diverticula are seen with no evidence of acute diverticulitis. Small and large bowel loops decompressed and otherwise unremarkable. Appendix not visualized and possibly surgically absent given increased radiodensities at the cecal base. LYMPHOVASCULAR STRUCTURES: Abdominal aorta normal in caliber with mild atherosclerotic calcification seen, which also involve the branch vessels, including the renal arteries. No periaortic collections. There are several tiny subcentimeter sized lymph nodes seen in the periportal region without pathologic enlargement. No abdominal or pelvic adenopathy. BONES: Unremarkable. IMPRESSION: 1. Improving uncomplicated interstitial pancreatitis with improving mild peripancreatic edema around the pancreatic tail. No abnormal evolving peripancreatic collection seen. 2. Hepatic steatosis with stable benign enhancing mass in hepatic segment 6, most consistent with a small hemangioma. 3. Interval development of small bilateral pleural effusions with associated bibasilar subsegmental atelectasis in the lungs.
[2016-09-28 15:05] VITALS: BP 146/98
--- NOTE | 2016-09-28 16:46 | Patient Discharge Instructions ---
Discharge Instructions General Discharge Information You were seen/treated for: Alcohol-induced pancreatitis You had these procedures: Nausea, vomiting, fever Special Instructions: Please follow-up with your primary care physician within 7 days of discharge. Please give a call after your discharge, to intensive outpatient psychiatry (IOP ) at , to follow-up with psychiatric services and alcohol related issues. You can call the service as soon as per your convinence. It is very important that you stop drinking alcohol anymore. Also, please STOP taking any benzos/benzodiazepines/diazepam/Valium that you used to take on as- needed basis occasionally. The IOP is an abstainance based program, that does not allow concurrent use of benzodiazepines while getting the treatment. Please return to emergency if symptoms worsen. Diet Continue normal diet: Yes Recommended Diet: Heart Healthy Activity Full Activity/No Limits: Yes Activity Self Limited: Yes Acute Coronary Syndrome Inclusion Criteria At DC or during hospital stay patient has or had the following: ACS DIAGNOSIS No Discharge Core Measures Meds if any: Prescribed or Continued at Discharge Meds if any: NOT Prescribed or Continued at Discharge Congestive Heart Failure Inclusion Criteria At DC or during hospital stay patient has or had the following: CHF DIAGNOSIS No Discharge Core Measures Meds if any: Prescribed or Continued at Discharge Meds if any: NOT Prescribed or Continued at Discharge Cerebrovascular accident Inclusion Criteria At DC or during hospital stay patient has or had the following: CVA/TIA Diagnosis No Discharge Core Measures Meds if any: Prescribed or Continued at Discharge Meds if any: NOT Prescribed or Continued at Discharge Venous thromboembolism Inclusion Criteria VTE Diagnosis No VTE Type NONE VTE Confirmed by (Test) NONE Discharge Core Measures - Per Current guidelines, there needs to be overlap - treatment for the first 5 days of Warfarin therapy. - If discharged on Warfarin prior to 5 days of - overlap therapy, the patient will need to be - assessed for post discharge needs including - *Post discharge parental anticoagulation - *Warfarin and/or parental anticoagulation education - *Follow up date to check INR post discharge At least 5 days overlap therapy as Inpatient No Meds if any: Prescribed or Continued at Discharge Note: Overlap Therapy is Warfarin and Anticoagulant Meds if any: NOT Prescribed or Continued at Discharge
[2016-09-28 22:26] VITALS: BP 142/92
[2016-09-29 07:03] VITALS: BP 110/72
--- NOTE | 2016-09-29 07:06 | PN- Housestaff ---
JERAMY BROWN,ODALYS 09/29/16 0706: Subjective Follow-up For: Alcohol-induced pancreatitis; Alcohol withdrawal Complaints: no complaints Subjective: I followed up and examined the patient today. She is resting comfortably in bed , not in distress, does not have any complaints, mentions that pain management was educated today, vitals have been stable and no other overnight issues. CIWA scores have been 0, received 1 mg of oral Ativan yesterday, has one last dose of 0.5 mg oral Ativan this morning. Review of Systems Constitutional: Reports: no symptoms. Objective Last 24 Hrs of Vital Signs/I&O Vital Signs Date Time Temp Pulse Resp B/P B/P Pulse O2 O2 Flow FiO2 Mean Ox Delivery Rate 09/29 0914 78 112/70 09/29 0913 78 11270 09/29 0703 98.0 76 18 110/72 93 Room Air 09/28 2226 98.1 79 20 142/92 94 Room Air 09/28 1505 97.9 77 20 146/98 95 Room Air Intake & Output 09/29 1600 09/29 0800 09/29 0000 Intake Total 1400 Output Total 300 900 550 Balance -300 -900 850 Intake, IV 600 Intake, Oral 800 Output, Urine 300 900 550 Physical Exam General Appearance: Alert, Oriented X3, Cooperative, No Acute Distress Other Physical Findings: Skin: No Rashes, No Breakdown HEENT: Atraumatic, PERRLA, EOMI Neck: Supple Cardiovascular: Normal S1, Normal S2 Lungs: Clear to Auscultation, Normal Air Movement Abdomen: Soft, No Hepatospenomegaly, no tenderness appreciated today Neurological: Sensation Intact, grossly intact Extremities: No Clubbing, No Cyanosis, No Edema Chest exam: Slightly enlarged bilateral breast tissue, no nodules felt Current Medications: Current Medications Sig/Fabiola Start time Last Medication Dose Route Stop Time Status Admin Amlodipine Besylate 10 MG DAILY 09/25 1000 AC 09/29 PO 09 Atorvastatin Calcium 80 MG 1700 09/24 1700 AC 09/28 PO 1625 Dextrose/Lactated 1,000 ML .[id number] 09/24 1430 DC 09/28 Ringer's IV 2207 Enoxaparin Sodium 40 MG DAILY 09/24 1943 AC SC Folic Acid 1 MG DAILY 09/25 1000 AC 09/29 PO 09 Gabapentin 300 MG TID 05/12 1600 AC 09/29 PO 0913 Ketorolac 30 MG ONCE ONE 09/29 0130 CAN Tromethamine IV 09/29 0131 Ketorolac 15 MG Q6PRN PRN 09/27 1630 AC Tromethamine IV Lorazepam 0.5 MG BID 09/28 1000 DC 09/29 PO 09/29 1200 0913 Lorazepam 0 Q1P PRN 09/24 1045 AC 09/25 IV 0900 Multivitamins 1 TAB DAILY 09/25 1000 AC 09/29 Therapeutic PO 0913 Nebivolol 5 MG DAILY 09/25 1000 AC 09/29 PO 0914 Omeprazole 40 MG DAILY AC 09/24 1426 AC 09/29 PO 0520 Ondansetron HCl 4 MG Q6P PRN 09/26 0645 AC 09/26 IV 1622 Thiamine HCl 100 MG DAILY 09/25 1000 AC 09/29 PO 0913 Tramadol HCl 50 MG Q6P PRN 09/27 1115 AC 09/29 PO 0518 Last 24 Hrs of Lab/Felix Results Last 24 Hrs of Labs/Mics: Laboratory Tests 09/29/16 0946: CBC w Diff NO MAN DIFF REQ, RBC 4.28 L, MCV 88.5, MCH 29.6, RDW 14.1, MPV 7.0 L, Gran % 66.8, Lymphocytes % 19.7 L, Monocytes % 8.2, Eosinophils % 4.9, Basophils % 0.4, Absolute Granulocytes 4.5, Absolute Lymphocytes 1.3, Absolute Monocytes 0.6, Absolute Eosinophils 0.3, Absolute Basophils 0, PUBS MCHC 33.5 Assessment/Plan Assessment: Patient is a 61 yo M with a PMH significant for HTN, HLD, alcohol withdrawal, alcohol detox with multiple admissions for acute pancreatitis secondary to alcohol and presented to [facility] with persistent abdominal pain 01/23. Admitted for alcohol induced pancreatitis. Blood pressure 153/95, heart rate of 105, respiration rate of 18, temperature of 97.8, saturation of 96% on room air. Significant labs include: AST/ALT - 125/98 at admission, ALP - 148 Lipid levels - TG's - 810--> 349, cholesterol - 260 --> 197 after hydration, Lipase - 745 Currently the patient is being managed in the general medicine floor for the following conditions: Pancreatitis * Secondary to alcohol, high TG's * Patient was initially managed nothing by mouth, later advanced his diet which he is tolerating well now. * Initially was on high flow resuscitation, now been reduced as he has been taking by mouth, is stable and pancreatitis resolving. * Pain control with Dilaudid Q3PRN has been STOPPED as this might have caused some drowsiness during the morning rounds till 09/28/16. Converted ketorolac IV to PO form as in patient, and Tramadol PO for discharge. * Omez 40mg daily * Patient was complaining of persistent mild abdominal and back pain although mild on 09/28/16, so ruled out acute pathoilogies by CT abd-pelvis. Acute onset hypoxia, requiring additional oxygen. Patient normally does not have additional oxygen at home. He did require additional oxygen at a maximum of 4 L/m until 09/27/16, at which point PE was ruled out by CT angiography. Currently patient is asymptomatic at room air. Alcohol withdrawl * CIWA Protocol 0-5. Currently at 0. He was receiving 0.5 mg of by mouth Ativan BID, now has been changed to 0.5 mg PO Ativan only once (last dose) today and stopping CIWA protocol. * Continued folate/thiamine/multivitamin after a banana bag. 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 He agrees to stopping fairly him that he was taking as needed at home, as the IOP program is an abstinence-based program. HLD * continue Atorvastatin 80mg daily HTN * On Norvasc 10mg and Nebivolol 5mg * Adequately controlled with those medications #Discharge disposition: Patient seems to be recovering well, and can be discharged safely today to home with a follow-up with his primary care physician and intensive outpatient psychiatry. DVT prophylaxis * SC lovenox, which he has been refusing due to his aneurysm, and has also been refusing ALPS. Patient well aware of the DVT prophylaxis indications, and consequences. Yet refuses Lovenox as well as Alps. Code status * Full code Problem List: 1. Pancreatitis, alcoholic, acute 2. Alcohol withdrawal 3. Depression Pain Ratin Pain Location: - Pain Goal: Pain 4 or less Pain Plan: PO meds ordered on DC Tomorrow's Labs & Rationales: - HERNESTO SALEH MD 09/29/16 1221: Attending MD Review Statement Attending Statement Attending MD Statement: examined this patient, discuss w/resident/PA/PORTUGUESE TUTOR, agreed w/resident/PA/PORTUGUESE TUTOR, reviewed EMR data (avail), discussed with nursing, discussed with case mgmt, amended to note Attending Assessment/Plan: Patient seen and examined. Resting comfortably not in any acute distress. Denies nausea vomiting. Tolerating meals. Complains of mild abdominal discomfort. He has been counseled on the to abstain from alcohol use. He has been referred to the IOP program. Patient reports complaint of breast discomfort going on for several months. On examination no obvious gynecomastia is noted. No palpable nodules noted. No tenderness on examination. He has completed his Ativan taper and is medically stable to be discharged home today. Due to complaints of mild abdominal discomfort is being provided prescriptions for tramadol. His been advised to follow-up with his primary care provider if his abdominal pain persists or worsens.
--- NOTE | 2016-09-29 09:06 | NUR ---
LATE ENTRY FOR [address] ROONEY THAT PT L INNER ARM WITH BRUISING/REDNESS NOTED.
[2016-09-29] MEDS ORDERED: TRAMADOL HCL50 M1 PO (11:11)
[2016-09-29 11:19] LABS: ABSOLUTE BASOPHIL COUNT 0 /CUMM (0.0-0.2); ABSOLUTE EOSINOPHIL COUNT 0.3 /CUMM (0.0-0.7); ABSOLUTE GRANULOCYTE CT 4.5 /CUMM (1.4-6.5); ABSOLUTE LYMPH COUNT 1.3 /CUMM (1.2-3.4); ABSOLUTE MONOCYTE COUNT 0.6 /CUMM (0.10-0.60); BASOPHIL % 0.4 % (0.0-2.0); EOSINOPHIL % 4.9 % (0-5); GRANULOCYTE % 66.8 % (42.2-75.2); HEMATOCRIT 37.8 % (42-52); MEAN CORPUSCULAR HGB 29.6 PG (27.0-31.0); MEAN CORPUSCULAR HGB CONC 33.5 G/DL (33.0-37.0); MEAN CORPUSCULAR VOLUME 88.5 FL (80.0-94.0); PLATELET COUNT 270 /CUMM (130-400); RBC DISTRIBUTION WIDTH 14.1 % (11.5-14.5); RED BLOOD CELL CT 4.28 /CUMM (4.70-6.10); WHITE BLOOD CELL COUNT 6.8 /CUMM (4.8-10.8)
[2016-09-29 14:11] VITALS: BP 130/70
--- NOTE | 2016-09-29 14:26 | NUR ---
REferral received today . This patient is a 61 year old male, admitted to the hospital on 09/24/16 with pancreatitis in the setting of ETOH depenedence. Patient scheduled for discharge home today, and Dr. Arroyo requested assistance with referral to [facility]. This patient is remotely familiar to me from an admission to the hospital earlier this year at which time an intake at our IOP was secured, but he did not begin treatment, secondary to high co-pays. I visited with the patient today. He reported not feeling well, but had secured himself a new intake at the [facility], scheduled for today. Alexis feels as though he is not able to keep the appointment for today, and requested appointment be cancelled. Appoinment has been cancelled. Patient has been instructed to call the [facility] for new intake; appropriate contact information written on discharge instructions. Please call if other social work needs arise.
--- NOTE | 2016-09-30 08:00 | Discharge Summary ---
Visit Information Visit Dates Admission Date: 09/24/16 Discharge Date: 09/29/16 Hospital Course Course Attending Physician: HERNESTO SALEH M.D Primary Care Physician: SHAYAN CASTRO MD Hospital Course: Mr Mendez is a 61 year old male with past medical history significant for HTN, HLD, alcohol withdrawal, alcohol detox with multiple admissions for acute pancreatitis secondary to alcohol, who presented to [facility] with persistent severe abdominal pain. He was admitted for alcohol induced pancreatitis and was managed in the general medical floor. On admission: Blood pressure 153/95, heart rate of 105, respiration rate of 18, temperature of 97.8, saturation of 96% on room air. Significant labs include: AST/ALT - 125/98 at admission, ALP - 148; Lipid levels - TG's - 810--> 349, cholesterol - 260 --> 197 after hydration, Lipase - 745 Issues managed in the general medicine floor: Pancreatitis * Secondary to alcohol, but the patient also has high triglycerides * Patient was initially managed nothing by mouth, later advanced his diet which he tolerated well. IV fluids resuscitation was adequate, pain abdomen resolved gradually and thus his vitals as well. He was initially wash flow oxygen, later tapered off to room air. * Pain control with Dilaudid Q3PRN was STOPPED as it was causing him to be very drowsy and tapering off oxygen was difficult this way. Pain management went well with Ketorolac and Tramadol. PPI Omez 40mg daily continued. * Patient was complaining of persistent mild abdominal and back pain although mild on 09/28/16, so ruled out acute pathologies/complications by CT abd-pelvis. Acute onset hypoxia, requiring additional oxygen. Patient normally does not have additional oxygen at home. He did require additional oxygen at a maximum of 4 L/m until 09/27/16, at which point PE was ruled out by CT angiography. This was partly attributed to the pain medication Dilaudid so wasswitched to Ketorolac and Tramadol. Subsequently, he was asymptomatic at room air. Alcohol withdrawl and detoxification Patient was placed on CIWA protocol. Ativan by mouth and IV was prescribed per protocol and slowly tapered off. He has been extensively counseled about alcohol cessasation and appears willing. He will follow up with out patient IOP program. Last time, he was non compliant due to financial issues per patient's story. He was also consulted by social works services. Upon discharge, folate/thiamine/ multivitamin continued. Gabapentin continued for alcohol induced neuropathy. Of note, he complained of bilateral increased size and hypersensitivity since ?few months. On examination, significant gynecomastia was not observed, but he was explained about possible effects of estrogen not being degraded by liver due to effects of alcohol and potential of gynecomastia. This was agreed to be followed up as an out patient basis with his PCP. He agrees to stopping Diazepam that he was taking as needed at home, as the IOP program is an abstinence-based program. Other issues: HLD: continued Atorvastatin 80mg daily HTN: He was on Norvasc 10mg and Nebivolol 5mg, adequately controlled. DVT prophylaxis: SC Lovenox was prescribed, which he has been refusing due to his history of aneurysm, and was also refusing ALPS. Patient is well aware of the DVT prophylaxis indications, and consequences. Yet refused Lovenox as well as Alps. Code status: Full code Allergies: Coded Allergies: NO KNOWN ALLERGIES (07/05/16) Significant Procedures: CT abd/pelvis later towards the discharge, with complaints of mild abd and back pain: 09/28/16: IMPRESSION: 1. Improving uncomplicated interstitial pancreatitis with improving mild peripancreatic edema around the pancreatic tail. No abnormal evolving peripancreatic collection seen. 2. Hepatic steatosis with stable benign enhancing mass in hepatic segment 6, most consistent with a small hemangioma. 3. Interval development of small bilateral pleural effusions with associated bibasilar subsegmental atelectasis in the lungs. DICTATED BY: JS BROWN,DOROTHY Isidro DATE/TIME DICTATED:09/28/161231 POWER BRAKE REBUILDER:BRUCE DATE/TIME TRANSCRIBED:09/28/161231 CT Chest to rule out causes of hypoxia:09/27/16: IMPRESSION: 1. No pulmonary embolism. 2. Tiny bilateral pleural effusions with associated atelectasis. 3. Groundglass opacities in the right upper lobe perihilar region could be infectious or inflammatory in etiology. VTE: negative DICTATED BY: MAIA BROWN,PAUL DATE/TIME DICTATED:09/27/162008 POWER BRAKE REBUILDER:BRUCE DATE/TIME TRANSCRIBED:09/27/162008 Pertinent Lab Results: 09/29/16 0946: CBC w Diff NO MAN DIFF REQ, RBC 4.28 L, MCV 88.5, MCH 29.6, RDW 14.1, MPV 7.0 L, Gran % 66.8, Lymphocytes % 19.7 L, Monocytes % 8.2, Eosinophils % 4.9, Basophils % 0.4, Absolute Granulocytes 4.5, Absolute Lymphocytes 1.3, Absolute Monocytes 0.6, Absolute Eosinophils 0.3, Absolute Basophils 0, PUBS MCHC 33.5 ----- 09/27/16 1654: D-Dimer 588 H 09/27/16 0628: Anion Gap 10, Estimated GFR > 60, BUN/Creatinine Ratio 8.3, Total Bilirubin 0.6, Direct Bilirubin 0.3, AST 30, ALT 43, Alkaline Phosphatase 105, Total Protein 5.7 L, Albumin 2.9 L, CBC w Diff NO MAN DIFF REQ, RBC 3.94 L, MCV 89.0, MCH 30.1, RDW 14.0, MPV 7.3 L, Gran % 70.9, Lymphocytes % 17.7 L, Monocytes % 6.1, Eosinophils % 5.0, Basophils % 0.3, Absolute Granulocytes 6.2, Absolute Lymphocytes 1.5, Absolute Monocytes 0.5, Absolute Eosinophils 0.4, Absolute Basophils 0, PUBS MCHC 33.9 ------ Disposition Summary Disposition Principal Diagnosis: Alcohol-induced pancreatitis Additional Diagnosis: HTN, HLD, alcohol abuse and withdrawal, multiple admissions for acute alcoholic pancreatitis and alcohol detox Discharge Disposition: home or self care Discharge Instructions General Discharge Information Code Status: Full Code Patient's Diet: Heart healthy diet. AVOID ALCOHOL. Patient's Activity: As tolerated. Follow-Up Instructions/Appts: Please follow-up with your primary care physician within 7 days of discharge. Please give a call after your discharge, to intensive outpatient psychiatry (IOP ) at , to follow-up with psychiatric services and alcohol related issues. You can call the service as soon as per your convinence. It is very important that you stop drinking alcohol anymore. Also, please STOP taking any benzos/benzodiazepines/diazepam/Valium that you used to take on as- needed basis occasionally. The IOP is an abstainance based program, that does not allow concurrent use of benzodiazepines while getting the treatment. Please return to emergency if symptoms worsen. Medications at Discharge Discharge Medications: Stop taking the following medications: Diazepam (Diazepam) 5 MG TABLET ORAL 2 x Daily as needed as needed for UNKNOWN Qty = 60 Continue taking these medications: Pravastatin Sodium (Pravastatin Sodium) 80 MG TABLET 1 Tablet ORAL DAILY Qty = 90 Comments: Last Taken: 09/28/16 Time: 4:30 PM (LIPITOR 80MG GIVEN) Pantoprazole Sodium (Pantoprazole Sodium) 40 MG TABLET.DR 1 Tablet ORAL DAILY Qty = 180 Comments: Last Taken: 09/29/16 Time: 5:30 AM (PRILOSEC 40MG GIVEN) Acetaminophen (Tylenol) 325 MG TABLET 2 Tablet ORAL EVERY SIX HOURS NEEDED as needed for PAIN Comments: IV Tylenol given 07/04/16 @ 0445am Folic Acid (Folic Acid) 1 MG TABLET 1 Milligram ORAL DAILY Qty = 15 Comments: Last Taken: 09/29/16 Time: 9:15 AM Multivitamin (One Daily Multivitamin) 1 EACH TABLET 1 Tablet ORAL DAILY Qty = 15 Comments: Last Taken: 09/29/16 Time: 9:15 AM Thiamine HCl (Vitamin B-1) 100 MG TABLET 1 Tablet ORAL DAILY Qty = 15 Comments: Last Taken: 09/29/16 Time: 9:15 AM Nebivolol HCl (Bystolic) 5 MG TABLET 1 Tablet ORAL DAILY Qty = 90 Comments: Last Taken:07/09/16 Time:0920am Amlodipine Besylate (Amlodipine Besylate) 10 MG TABLET 1 Tablet ORAL DAILY Comments: Last Taken: 09/29/16 Time: 9:15 AM Gabapentin (Gabapentin) 300 MG CAPSULE 300 Milligram ORAL THREE TIMES DAILY Qty = 90 Comments: Last Taken: 09/29/16 Time: 9:15 AM Start taking the following new medications: Tramadol HCl (Tramadol HCl) 50 MG TABLET 50 Milligram ORAL EVERY SIX HOURS NEEDED as needed for PAIN SCALE 4-6 ( MODERATE) Qty = 12 No Refills Comments: Last Taken: 09/29/16 Time: 10:00 AM Copies To: GLORIA BROWN,SHAYAN Topete Attending Review Statement Documenting Attending: HERNESTO SALEH M.D Other Findings: I have reviewed the discharge summary.
== END 2016-09-29 15:58 | DRG 439 ==
LOC: ERH 07:30 → ERHI 09:32 → 2NB 09:32 → ENRESERV 09:57 → 2NB 10:32 → ENPENDDIS 09-29 14:28 → 2NB 09-29 15:58
PROVIDERS: Emergency Medicine; Internal Medicine; Internal Medicine Nephrology; Preventive Medicine Public Health & General Preventive Medicine; ADMIT Internal Medicine
DX: K85.20 Alcohol induced acute pancreatitis without necrosis or infection (principal); F10.239 Alcohol dependence with withdrawal, unspecified; I10 Essential (primary) hypertension; Y90.0 Blood alcohol level of less than 20 mg/100 ml; E78.5 Hyperlipidemia, unspecified; E78.1 Pure hyperglyceridemia; Z87.891 Personal history of nicotine dependence
CPT/HCPCS: 2NBP; 2NBSP; 74177; 80307; 81001; 82436; 93005; 93010; 96374; 96375; G0480; J1650; J2270; J2405; J3490; J7060; J7120

== ENCOUNTER 2017-05-30 18:59 | Inpatient (IN) | payer OTHER ==
[~2017-05-30] VITALS: Ht 172.7 cm; Wt 94.8 kg
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
--- NOTE | 2017-05-30 21:07 | CT SCAN REPORT ---
EXAMINATION: CT ABDOMEN AND PELVIS WITH CONTRAST CLINICAL INFORMATION: Abdominal pain. COMPARISON: 09/28/2016. TECHNIQUE: Contiguous axial thin section helical images of the abdomen and pelvis were performed following the administration of 100 mL of intravenous Omnipaque 300. The data set was reformatted in the coronal and sagittal planes and reviewed on an independent workstation. DLP: 726 mGy-cm. FINDINGS: The visualized lung bases are clear. The visualized portions of the heart are unremarkable. There is a small hiatal hernia. The liver is of increased size and diffuse decreased attenuation without focal lesions nor intrahepatic biliary ductal dilation. A normal gallbladder is identified. There is no wall thickening or discernible pericholecystic fluid. The spleen and adrenal glands are unremarkable. The pancreas is of slightly increased size. There is adjacent mesenteric fat stranding. There are no fluid collections. There are a few punctate calcifications present within the pancreatic parenchyma. Both kidneys are of normal size and attenuation without hydronephrosis or nephrolithiasis. Following the administration of IV contrast, prompt symmetric nephrograms are displayed. There is no abdominal free fluid. There is neither mesenteric nor retroperitoneal lymphadenopathy. Normal unopacified loops of small and large bowel are identified. There is no pelvic free fluid. The urinary bladder is unremarkable. There is neither pelvic nor inguinal lymphadenopathy. Bone windows: Neither sclerotic nor lytic bone lesions are identified. IMPRESSION: Gestations of pancreatitis. No drainable fluid collections. Hepatic steatosis. Small hiatal hernia.
[2017-05-30 21:49] LABS: ABSOLUTE BASOPHIL COUNT 0 /CUMM (0.0-0.2); ABSOLUTE EOSINOPHIL COUNT 0.1 /CUMM (0.0-0.7); ABSOLUTE GRANULOCYTE CT 6.6 /CUMM (1.4-6.5); ABSOLUTE LYMPH COUNT 1.1 /CUMM (1.2-3.4); ABSOLUTE MONOCYTE COUNT 0.7 /CUMM (0.10-0.60); BASOPHIL % 0 % (0.0-2.0); EOSINOPHIL % 0.9 % (0-5); GRANULOCYTE % 77.2 % (42.2-75.2); HEMATOCRIT 46.2 % (42-52); MEAN CORPUSCULAR HGB 31.2 PG (27.0-31.0); MEAN CORPUSCULAR HGB CONC 33.9 G/DL (33.0-37.0); MEAN CORPUSCULAR VOLUME 92.1 FL (80.0-94.0); MEAN PLATELET VOLUME 7.8 FL (7.4-10.4); PLATELET COUNT 262 /CUMM (130-400); RBC DISTRIBUTION WIDTH 15.1 % (11.5-14.5); RED BLOOD CELL CT 5.02 /CUMM (4.70-6.10); WHITE BLOOD CELL COUNT 8.5 /CUMM (4.8-10.8)
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
--- NOTE | 2017-05-31 01:04 | Admission Certification ---
Admission Certification Certification Statement - As attending physician, I certify that at the time of - admission, based on clinical presentation, severity of - symptoms, need for further diagnostic testing and - therapeutic interventions, and risk of adverse outcomes - without in-hospital treatment, in my clinical assessment, - this patient requires an acute hospital stay for a minimum - of two nights or longer. I have also considered psychsocial - factors such as support system, advanced age, financial - issues, cognitive issues, and failed out-patient treatments, - past re-admission history, safety of patient, and lack of - compliance as applicable. Specific rationale supporting this admission is: Acute alcoholic pancreatitis.
[2017-05-31 06:03] LABS: ABSOLUTE BASOPHIL COUNT 0 /CUMM (0.0-0.2); ABSOLUTE EOSINOPHIL COUNT 0.1 /CUMM (0.0-0.7); ABSOLUTE GRANULOCYTE CT 5.3 /CUMM (1.4-6.5); ABSOLUTE LYMPH COUNT 1.3 /CUMM (1.2-3.4); ABSOLUTE MONOCYTE COUNT 0.6 /CUMM (0.10-0.60); BASOPHIL % 0.3 % (0.0-2.0); GRANULOCYTE % 72.4 % (42.2-75.2); MEAN CORPUSCULAR HGB 31.2 PG (27.0-31.0); MEAN CORPUSCULAR VOLUME 91.7 FL (80.0-94.0); MEAN PLATELET VOLUME 7.2 FL (7.4-10.4); PLATELET COUNT 228 /CUMM (130-400); RBC DISTRIBUTION WIDTH 14.9 % (11.5-14.5); RED BLOOD CELL CT 4.58 /CUMM (4.70-6.10); WHITE BLOOD CELL COUNT 7.3 /CUMM (4.8-10.8)
--- NOTE | 2017-05-31 08:01 | PN- Housestaff ---
[place] 05/31/17 0801: Subjective Follow-up For: Acute alcoholic pancreatitis Transient transaminitis Alcohol detox Hypoxia Subjective: No overnight events. Patient remained afebrile. Seen and examined this morning. Patient denied any chest pain, short of breath, nausea, vomiting, chills, fever and dysuria. Patient reported having abdominal pain 8/10 and it's going to worse back. patient desaturates to 90% so 2L o2 was started. Review of Systems Constitutional: Reports: no symptoms. EENTM: Reports: no symptoms. Cardiovascular: Reports: no symptoms. Respiratory: Reports: no symptoms. Gastrointestinal: Reports: abdominal pain. Genitourinary: Reports: no symptoms. Musculoskeletal: Reports: see HPI. Neurological/Psychological: Reports: no symptoms. Objective Last 24 Hrs of Vital Signs/I&O Vital Signs Date Time Temp Pulse Resp B/P B/P Pulse O2 O2 Flow FiO2 Mean Ox Delivery Rate 05/31 1102 97.9 92 20 142/91 93 Nasal 2.0L Cannula 05/31 1055 97.9 92 20 142/91 05/31 0630 98.0 101 20 155/108 94 Room Air 05/31 0212 97.5 105 18 158/102 95 Room Air 05/31 0000 98.5 99 20 155/89 94 Room Air 05/30 2313 97.9 97 20 146/100 95 Room Air 05/30 2054 98.4 87 20 161/103 98 Room Air 05/30 2030 Room Air 05/30 1917 98.4 130 22 166/100 96 Room Air Intake & Output 05/31 1600 05/31 0800 05/31 0000 Intake Total 1000 1000 Output Total Balance 1000 1000 Intake, IV 1000 1000 Patient 218 lb Weight Physical Exam General Appearance: Alert, Oriented X3, Cooperative, No Acute Distress Skin Temp/Moisture Exam: Warm/Dry Sepsis Skin Exam (color): Normal for Ethnicity HEENT: Atraumatic, PERRLA, EOMI Neck: Supple Cardiovascular: Normal S1, Normal S2 Lungs: Clear to Auscultation Abdomen: Soft, No Tenderness Neurological: Normal Speech, Strength at 5/5 X4 Ext, Normal Tone, Sensation Intact Extremities: No Edema Assessment/Plan Assessment: 62 yo M with h/o alcohol dependence, pancreatitis, HTN, brain aneurysm (2011), viral meningitis (2012), anxiety/ depression, right ear hearing loss, renal cysts, last admitted to [place] (September 2016) for pancreatitis and alcohol withdrawal is here for evaluation of sudden onset epigastric pain radiating to the back, associated with multiple episodes of nausea and vomiting. 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 No h/o alcohol withdrawal seizures. Admit the patient to the [facility] Acute alcohol-induced pancreatitis: -We'll start him on aggressive IV hydration with Ringer lactate at the rate of 250 ML per hour. -Keep the patient nothing by mouth for now. -Adequate pain control with IV Dilaudid. -Zofran as needed for nausea vomiting. -IV Protonix Alcohol abuse/dependence: -Ativan as per [facility] protocol -Start the patient on by mouth schedule Ativan 1.5 mg every 6 tomorrow -Maintain seizure and aspiration precautions -By mouth thiamine and vitamin B12 and folic acid tomorrow. -Obtain social work consult . Transient transaminitis: -likely alcohol induced -Trended LFTs -Hold statin. History of hypertension and lipidemia: -we will continue amlodipine and nebivolol. -Holding lipitor for transaminitis History of brain bilateral aneurysm: -Hold any pharmacological anticoagulation. History of major depression: -Patient has been off Zoloft since February 2017, wants to be seen by a psychiatrist. -Obtain psych consult in the morning. Chronic pain syndrome/neuralgia: -Continue gabapentin. DVT prophylaxis : Alps only in the setting of brain aneurysm Code status: Full code Problem List: 1. Alcohol withdrawal 2. Pancreatitis, alcoholic, acute 3. Transaminitis Pain Ratin Pain Location: abdomen Pain Goal: Pain 4 or less Pain Plan: dilaudid for severe pain Tomorrow's Labs & Rationales: cbc/bep Erica Villa MD 05/31/17 1238: Attending MD Review Statement Attending Statement Attending MD Statement: examined this patient, discuss w/resident/PA/JOURNEYMAN MECHANIC, agreed w/resident/PA/JOURNEYMAN MECHANIC, reviewed EMR data (avail) Attending Assessment/Plan: 62M PMH HTN, HLD, alcohol withdrawal, alcohol detox with multiple admissions for acute pancreatitis secondary to alcohol, admitted overnight for acute alcoholic pancreatitis. Significant epigastric pain today. Abdomen is tender diffusely and distended. Mild nausea, no vomiting. Oxygen saturation 88% on room air. 1. Acute alcoholic pancreatitis 2. Hypoxia Plan - Continue on general medicine - IV hydration - Dilaudid PRN - Obtain CXR - NPO for now - DVT PPx
[2017-05-31 10:55] VITALS: BP 142/91
--- NOTE | 2017-05-31 13:43 | RADIOLOGY REPORT ---
EXAMINATION: XR PORTABLE CHEST CLINICAL INFORMATION: Pleural effusion. Desaturation. COMPARISON: Chest done on 09/26/2016. TECHNIQUE: Portable frontal view of the chest was obtained. FINDINGS: Low lung volume is present bilaterally. Both lungs are symmetrically expanded and are clear. The cardiac mediastinal silhouette is mildly enlarged, unchanged. There is no pleural effusion present. The visualized upper abdomen is unremarkable. Overall no significant change. IMPRESSION: Low lung volume, otherwise unremarkable, unchanged since 09/26/2016.
[2017-05-31 15:18] VITALS: BP 160/98
[2017-05-31 16:09] VITALS: BP 160/98
--- NOTE | 2017-05-31 20:29 | Incdntl Nt Psy ---
Incidental Note Notation: TC to Tahir Haas today at approx. 1330: He reports that the psychiatry consult request is not urgent; we will see the patient on 06/01/17. He reports that the patient is not suicidal and not delirious. The normal pathway for treatment of depression and anxiety is through the [facility], which we or medical social work can arrange. Dr. Haas mentioned that the patient has failed several outpatient programs; this may make him eligible for an inpatient rehab. We will review with our health social work professor tomorrow.
[2017-05-31 21:52] VITALS: BP 148/96
[2017-06-01] VITALS: BP 148/96
[2017-06-01 06:05] VITALS: BP 138/86
--- NOTE | 2017-06-01 07:44 | PN- Housestaff ---
[facility]: Subjective Follow-up For: Acute alcoholic pancreatitis Transient transaminitis Alcohol detox Hypokalemia and hypomagnesemia Subjective: No overnight events. Patient remained afebrile overnight. Seen and examined this morning. He denied any chest pain, short of breath, nausea, vomiting, chills, fever and dysuria. Patient reported that his abdominal pain is well controlled with medication. He is on 2 L of oxygen and maintaining saturation 96%. We will try to taper off his oxygen. Review of Systems Constitutional: Reports: no symptoms. EENTM: Reports: no symptoms. Cardiovascular: Reports: no symptoms. Respiratory: Reports: no symptoms. Gastrointestinal: Reports: see HPI. Genitourinary: Reports: no symptoms. Musculoskeletal: Reports: no symptoms. Neurological/Psychological: Reports: no symptoms. Objective Last 24 Hrs of Vital Signs/I&O Vital Signs Date Time Temp Pulse Resp B/P B/P Pulse O2 O2 Flow FiO2 Mean Ox Delivery Rate 06/01 0605 98.0 80 18 138/86 92 06/01 0000 Nasal 2.0L Cannula 06/01 0000 99.0 22 81 148/96 05/31 2152 99.0 81 22 148/96 93 Nasal 3.0L Cannula 05/31 1609 98.6 82 20 160/98 05/31 1609 90 Nasal 2.0L Cannula 05/31 1518 98.6 82 20 160/98 90 Nasal 2.0L Cannula 05/31 1408 98.1 84 18 123/87 92 Nasal 2.0L Cannula Intake & Output 06/01 1600 06/01 0800 06/01 0000 Intake Total 680 1430 Output Total 550 250 Balance 130 1180 Intake, IV 600 1400 Intake, Oral 80 30 Output, Urine 550 250 Patient 210 lb Weight Weight Reported by Patient Measurement Method Physical Exam General Appearance: Alert, Oriented X3, Cooperative, No Acute Distress Skin Temp/Moisture Exam: Warm/Dry HEENT: Atraumatic, PERRLA, EOMI Neck: Supple Cardiovascular: Normal S1, Normal S2 Lungs: Clear to Auscultation Abdomen: No Tenderness Neurological: Normal Speech, Strength at 5/5 X4 Ext, Normal Tone, Sensation Intact Extremities: No Edema Assessment/Plan Assessment: 62 yo M with h/o alcohol dependence, pancreatitis, HTN, brain aneurysm (2011), viral meningitis (2013), anxiety/ depression, right ear hearing loss, renal cysts, last admitted to [facility] (September 2016) for pancreatitis and alcohol withdrawal is here for evaluation of sudden onset epigastric pain radiating to the back, associated with multiple episodes of nausea and vomiting. 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 No h/o alcohol withdrawal seizures. Admit the patient to the [facility] Acute alcohol-induced pancreatitis: -We'll start him on aggressive IV hydration with Ringer lactate at the rate of 250 ML per hour. -Adequate pain control with IV Dilaudid. -Zofran as needed for nausea vomiting. -IV Protonix -we will start clear liquid diet today if he tolerates then we will advance. Alcohol abuse/dependence: -Ativan as per [facility] protocol -Start the patient on by mouth schedule Ativan 1.5 mg every 6 tomorrow -Maintain seizure and aspiration precautions -By mouth thiamine and vitamin B12 and folic acid tomorrow. -patient is not requiring any additional doses of ativan.we will gee accordingly. Hypokalemia and hypomagnesemia: -Probably due to alcohol abuse. -We will repeat potassium and magnesium and then follow the labs. Transient transaminitis: -likely alcohol induced -His Lfts are getting better. -Hold statin. History of hypertension and lipidemia: -we will continue amlodipine and nebivolol. -Holding lipitor for transaminitis History of brain bilateral aneurysm: -Hold any pharmacological anticoagulation. History of major depression: -Patient has been off Zoloft since February 2017, wants to be seen by a psychiatrist. -Obtain psych consult in the morning. Chronic pain syndrome/neuralgia: -Continue gabapentin. DVT prophylaxis : Alps only in the setting of brain aneurysm Code status: Full code Problem List: 1. Transaminitis 2. Pancreatitis, alcoholic, acute 3. Alcohol withdrawal Pain Ratin Pain Location: none Pain Goal: Remain pain free Pain Plan: dilaudid for severe pain Tomorrow's Labs & Rationales: cbc/bep Erica Villa MD 06/01/17 1203: Attending MD Review Statement Attending Statement Attending MD Statement: examined this patient, discuss w/resident/PA/POLICE STENOGRAPHER, agreed w/resident/PA/POLICE STENOGRAPHER, reviewed EMR data (avail) Attending Assessment/Plan: 62M PMH HTN, HLD, alcohol withdrawal, alcohol detox with multiple admissions for acute pancreatitis secondary to alcohol, admitted overnight for acute alcoholic pancreatitis. Much improved today. Pain is well controlled on current regimen. Abdomen is less distended and less tender. Still complaining of back pain. Still on 2L NC saturating at 92%, lung exam clear, negative CXR. 1. Acute alcoholic pancreatitis 2. Hypoxia Plan - Continue on general medicine - IV hydration - Dilaudid PRN - Advance to clear liquid diet - If still hypoxic tomorrow would repeat CXR - DVT PPx
[2017-06-01 08:19] LABS: ABSOLUTE BASOPHIL COUNT 0 /CUMM (0.0-0.2); ABSOLUTE EOSINOPHIL COUNT 0.4 /CUMM (0.0-0.7); ABSOLUTE LYMPH COUNT 1.4 /CUMM (1.2-3.4); ABSOLUTE MONOCYTE COUNT 0.6 /CUMM (0.10-0.60); BASOPHIL % 0.4 % (0.0-2.0); EOSINOPHIL % 6.6 % (0-5); GRANULOCYTE % 62.2 % (42.2-75.2); HEMATOCRIT 39.3 % (42-52); MEAN CORPUSCULAR HGB 31.5 PG (27.0-31.0); MEAN CORPUSCULAR VOLUME 92.7 FL (80.0-94.0); MEAN PLATELET VOLUME 7.8 FL (7.4-10.4); PLATELET COUNT 188 /CUMM (130-400); RBC DISTRIBUTION WIDTH 14.9 % (11.5-14.5); RED BLOOD CELL CT 4.24 /CUMM (4.70-6.10); WHITE BLOOD CELL COUNT 6.4 /CUMM (4.8-10.8)
[2017-06-01 15:31] VITALS: BP 124/80
[2017-06-01 16:00] VITALS: BP 124/80
[2017-06-01 22:58] VITALS: BP 138/90
[2017-06-02 07:27] VITALS: BP 146/90
--- NOTE | 2017-06-02 07:29 | PN- Housestaff ---
[facility] 0728: Subjective Follow-up For: Acute alcoholic pancreatitis Transient transaminitis Alcohol detox Hypomagnesemia. Subjective: No overnight events. Patient remained afebrile. Seen and examined this morning. Patient denied any chest pain, short of breath, nausea, vomiting, chills, fever and dysuria. Patient's abdominal pain is under control with pain medication. He is on clear liquid diet. Today we will advance his diet to full liquid diet. Review of Systems Constitutional: Reports: no symptoms. EENTM: Reports: no symptoms. Cardiovascular: Reports: no symptoms. Respiratory: Reports: no symptoms. Gastrointestinal: Reports: see HPI. Genitourinary: Reports: no symptoms. Musculoskeletal: Reports: see HPI. Neurological/Psychological: Reports: no symptoms. Objective Last 24 Hrs of Vital Signs/I&O Vital Signs Date Time Temp Pulse Resp B/P B/P Pulse O2 O2 Flow FiO2 Mean Ox Delivery Rate 06/02 0727 98.4 82 20 146/90 94 Nasal 1.0L Cannula 06/02 0000 93 Nasal 1.0L Cannula 06/01 2258 98.4 76 20 138/90 93 Nasal 1.0L Cannula 06/01 1915 90 Room Air 06/01 1628 98.1 92 Nasal 1.0L Cannula 06/01 1600 98.2 81 20 124/80 06/01 1600 92 Nasal 1.0L Cannula 06/01 1531 98.2 81 20 124/80 92 Nasal 2.0L Cannula Intake & Output 06/02 1600 06/02 0800 06/02 0000 Intake Total 1600 Output Total 1475 Balance 125 Intake, IV 1000 Intake, Oral 600 Output, Urine 1475 Physical Exam General Appearance: Alert, Oriented X3, Cooperative, No Acute Distress Skin Temp/Moisture Exam: Warm/Dry Sepsis Skin Exam (color): Normal for Ethnicity HEENT: PERRLA, EOMI Neck: Supple Cardiovascular: Normal S1, Normal S2 Lungs: Clear to Auscultation Abdomen: Soft, No Tenderness Neurological: Normal Speech, Strength at 5/5 X4 Ext, Normal Tone Extremities: No Edema Assessment/Plan Assessment: 62 yo M with h/o alcohol dependence, pancreatitis, HTN, brain aneurysm (2011), viral meningitis (2012), anxiety/ depression, right ear hearing loss, renal cysts, last admitted to [facility] (September 2016) for pancreatitis and alcohol withdrawal is here for evaluation of sudden onset epigastric pain radiating to the back, associated with multiple episodes of nausea and vomiting. 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 No h/o alcohol withdrawal seizures. Admit the patient to the [facility] Acute alcohol-induced pancreatitis: -Adequate pain control with IV Dilaudid. -Zofran as needed for nausea vomiting. -IV Protonix -Patient is tolerating clear liquid diet and we will advance her to full liquid diet today. Alcohol abuse/dependence: -Ativan as per [facility] protocol -Patient is on ativan 1.5mg every 6 hourly we will change it to 1 mg every 6 hourly. -Maintain seizure and aspiration precautions -By mouth thiamine and vitamin B12 and folic acid tomorrow. Hypokalemia and hypomagnesemia:(resolved) -Probably due to alcohol abuse. -We will repeat potassium and magnesium and then follow the labs. Transient transaminitis:(improving) -likely alcohol induced -His Lfts are getting better. -Hold statin. History of hypertension and lipidemia: -we will continue amlodipine and nebivolol. -Holding lipitor for transaminitis History of brain bilateral aneurysm: -Hold any pharmacological anticoagulation. History of major depression: -Patient has been off Zoloft since February 2017, wants to be seen by a psychiatrist. -Obtain psych consult in the morning. Chronic pain syndrome/neuralgia: -Continue gabapentin. DVT prophylaxis : Alps only in the setting of brain aneurysm Code status: Full code Problem List: 1. Pancreatitis, alcoholic, acute 2. Transaminitis 3. Alcohol withdrawal Pain Ratin Pain Location: NONE Pain Goal: Remain pain free Pain Plan: Tylenol for mild pain Tomorrow's Labs & Rationales: cbc/bep Luis F Plata MD 06/02/17 2221: Attending MD Review Statement Attending Statement Attending MD Statement: examined this patient, discuss w/resident/PA/ADVANCED MANUFACTURING VICE PRESIDENT, agreed w/resident/PA/ADVANCED MANUFACTURING VICE PRESIDENT, reviewed EMR data (avail), amended to note Attending Assessment/Plan: The patient continues with abdominal pain, however tolerating clear liquids. Seen and discussed with house staff and will advance diet and follow symptoms. Attempt to transition to po pain medications. Ativan taper as per psychiatry.
[2017-06-02 08:17] LABS: ABSOLUTE BASOPHIL COUNT 0 /CUMM (0.0-0.2); ABSOLUTE EOSINOPHIL COUNT 0.3 /CUMM (0.0-0.7); ABSOLUTE GRANULOCYTE CT 4.3 /CUMM (1.4-6.5); ABSOLUTE LYMPH COUNT 1.1 /CUMM (1.2-3.4); ABSOLUTE MONOCYTE COUNT 0.4 /CUMM (0.10-0.60); BASOPHIL % 0.4 % (0.0-2.0); EOSINOPHIL % 5.5 % (0-5); GRANULOCYTE % 69.1 % (42.2-75.2); HEMATOCRIT 41.5 % (42-52); MEAN CORPUSCULAR HGB 31.5 PG (27.0-31.0); MEAN CORPUSCULAR HGB CONC 33.9 G/DL (33.0-37.0); MEAN CORPUSCULAR VOLUME 92.9 FL (80.0-94.0); MEAN PLATELET VOLUME 7.4 FL (7.4-10.4); PLATELET COUNT 204 /CUMM (130-400); RBC DISTRIBUTION WIDTH 14.2 % (11.5-14.5); RED BLOOD CELL CT 4.47 /CUMM (4.70-6.10); WHITE BLOOD CELL COUNT 6.2 /CUMM (4.8-10.8)
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
[2017-06-02 14:25] VITALS: BP 110/70
[2017-06-02 22:26] VITALS: BP 160/98
[2017-06-03 06:20] VITALS: BP 118/86
--- NOTE | 2017-06-03 07:18 | PN- Housestaff ---
See Addendum Subjective Follow-up For: Acute alcoholic pancreatitis (improving) Transient transaminitis (improving) Alcohol detox Hypomagnesemia Subjective: No overnight events. Patient remained afebrile overnight. Seen and examined this morning. Patient denied chest pain, short of breath, nausea, vomiting, abdominal pain, chills, fever and dysuria. Patient is feeling much improved and he is tolerating by mouth for liquid diet. We will advance the diet to regular today. Review of Systems Constitutional: Reports: no symptoms. EENTM: Reports: no symptoms. Cardiovascular: Reports: no symptoms. Respiratory: Reports: no symptoms. Gastrointestinal: Reports: no symptoms. Genitourinary: Reports: no symptoms. Musculoskeletal: Reports: no symptoms. Neurological/Psychological: Reports: no symptoms. Objective Last 24 Hrs of Vital Signs/I&O Vital Signs Date Time Temp Pulse Resp B/P B/P Pulse O2 O2 Flow FiO2 Mean Ox Delivery Rate 06/03 0620 97.5 77 22 118/86 96 Room Air 06/02 2226 97.6 73 18 160/98 92 Room Air 06/02 1425 97.8 87 20 110/70 91 Nasal 1.0L Cannula 06/02 0855 78 130/78 06/02 0855 78 130/78 Intake & Output 06/03 1600 06/03 0800 06/03 0000 Intake Total 600 720 Output Total 450 550 Balance 150 170 Intake, Oral 600 720 Number 0 Bowel Movements Output, Urine 450 550 Physical Exam General Appearance: Alert, Oriented X3, Cooperative Skin Temp/Moisture Exam: Warm/Dry HEENT: Atraumatic, PERRLA, EOMI Neck: Supple Cardiovascular: Normal S1, Normal S2 Lungs: Clear to Auscultation Abdomen: Soft, No Tenderness Neurological: Normal Speech, Strength at 5/5 X4 Ext, Normal Tone, Sensation Intact Extremities: No Edema Assessment/Plan Assessment: 62 yo M with h/o alcohol dependence, pancreatitis, HTN, brain aneurysm (2011), viral meningitis (2012), anxiety/ depression, right ear hearing loss, renal cysts, last admitted to [facility] (September 2016) for pancreatitis and alcohol withdrawal is here for evaluation of sudden onset epigastric pain radiating to the back, associated with multiple episodes of nausea and vomiting. 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 No h/o alcohol withdrawal seizures. Admit the patient to the [facility] Acute alcohol-induced pancreatitis:(improving) -Adequate pain control with IV Dilaudid. -Zofran as needed for nausea vomiting. -IV Protonix -Patient is tolerating full liquid diet and we will advance her to full liquid diet today. -Abdominal pain is under control with pain medication. Alcohol abuse/dependence: -Ativan as per [facility] protocol -Patient is on ativan 1 mg every 6 hourly we will change it to 0.5 mg every 6 hourly tomorrow. -Maintain seizure and aspiration precautions -By mouth thiamine and vitamin B12 and folic acid tomorrow. Hypokalemia and hypomagnesemia:(resolved) -Probably due to alcohol abuse. -We will repeat potassium and magnesium and then follow the labs. Transient transaminitis:(improving) -likely alcohol induced -His Lfts are getting better. -Hold statin. History of hypertension and lipidemia: -we will continue amlodipine and nebivolol. -Holding lipitor for transaminitis History of brain bilateral aneurysm: -Hold any pharmacological anticoagulation. History of major depression: -Patient has been off Zoloft since February 2017, wants to be seen by a psychiatrist. -Obtain psych consult in the morning. Chronic pain syndrome/neuralgia: -Continue gabapentin. DVT prophylaxis : Alps only in the setting of brain aneurysm Code status: Full code Problem List: 1. Transaminitis 2. Pancreatitis, alcoholic, acute 3. Alcohol withdrawal Pain Ratin Pain Location: none Pain Goal: Remain pain free Pain Plan: tylenol for mild pain dilaudid for severe pain Tomorrow's Labs & Rationales: bep
[2017-06-03 14:30] VITALS: BP 116/78
[2017-06-03] MEDS ORDERED: ONDANSETRON ODT4 M1 PO (18:00)
--- NOTE | 2017-06-03 18:07 | Patient Discharge Instructions ---
Discharge Instructions General Discharge Information You were seen/treated for: Acute alcoholic pancreatitis Alcohol withdrawal Transient transaminitis Watch for these problems: Abdominal pain, nausea, vomiting, chills, fever, diarrhea, shortness of breath, constipation, anxiety, suicidal ideation, shakiness of the body and palpitation. If you experienced any of these symptoms please come to ED or call to your primary care physician. Special Instructions: Follow-up with your primary care physician in one week. Follow-up with outpatient alcohol detox program. Follow-up for your primary care physician to start lipid-lowering medication again. Pravastatin was stopped considering transaminitis during the hospital stay. Diet Recommended Diet: Regular Activity Activity Self Limited: Yes Acute Coronary Syndrome Inclusion Criteria At DC or during hospital stay patient has or had the following: ACS DIAGNOSIS No Discharge Core Measures Meds if any: Prescribed or Continued at Discharge Meds if any: NOT Prescribed or Continued at Discharge Congestive Heart Failure Inclusion Criteria At DC or during hospital stay patient has or had the following: CHF DIAGNOSIS No Discharge Core Measures Meds if any: Prescribed or Continued at Discharge Meds if any: NOT Prescribed or Continued at Discharge Cerebrovascular accident Inclusion Criteria At DC or during hospital stay patient has or had the following: CVA/TIA Diagnosis No Discharge Core Measures Meds if any: Prescribed or Continued at Discharge Meds if any: NOT Prescribed or Continued at Discharge Venous thromboembolism Inclusion Criteria VTE Diagnosis No VTE Type NONE VTE Confirmed by (Test) NONE Discharge Core Measures - Per Current guidelines, there needs to be overlap - treatment for the first 5 days of Warfarin therapy. - If discharged on Warfarin prior to 5 days of - overlap therapy, the patient will need to be - assessed for post discharge needs including - *Post discharge parental anticoagulation - *Warfarin and/or parental anticoagulation education - *Follow up date to check INR post discharge At least 5 days overlap therapy as Inpatient No Meds if any: Prescribed or Continued at Discharge Note: Overlap Therapy is Warfarin and Anticoagulant Meds if any: NOT Prescribed or Continued at Discharge
--- NOTE | 2017-06-03 18:07 | Discharge Summary ---
Visit Information Visit Dates Admission Date: 05/30/17 Discharge Date: 06/05/17 Hospital Course Course Attending Physician: Erica Villa MD Primary Care Physician: Esther Ren MD Hospital Course: 62 yo M with h/o alcohol dependence, pancreatitis, HTN, brain aneurysm (2011), viral meningitis (2012), anxiety/ depression, right ear hearing loss, renal cysts, last admitted to [facility] (September 2016) for pancreatitis and alcohol withdrawal is here for evaluation of sudden onset epigastric pain radiating to the back, associated with multiple episodes of nausea and vomiting. 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 No h/o alcohol withdrawal seizures. ED course: Vital: temp 98.4, pulse 130, respiratory 22, blood pressure 166/100, oxygen saturation 96% room air Labs: WBC count 9.5, hemoglobin 15.7, hematocrit 46.2, platelet count 262, sodium 146, potassium 4.2, BUN 13, creatinine 0.8, glucose 134, calcium 9.4, BUNs/creatinine ratio 16.3, alkaline phosphatase 135, troponin less than 0.01, triglyceride 169, mildly is 281, lipase 4082, AST is 61, ALT 223. Acute alcohol-induced pancreatitis: Patient presented with nausea vomiting and abdominal pain with elevated lipase level. Patient presented with same complaint previously. Patient was diagnosed with acute alcohol-induced pancreatitis. Initially patient was kept nothing by mouth considering his abdominal pain and nausea and vomiting and to give rest to pancreas. Patient was treated aggressively with IV fluids with Ringer's lactate to replete the fluid loss due to acute pancreatitis. Patient was given IV antiemetic medication to control nausea vomiting, IV Protonix and also IV pain medication to control the abdominal pain. Later on when patient was not feeling nauseated he was allowed to take clear liquids as tolerated and later on changed to full liquid diet. His IV medications were changed to by mouth. Patient's diet was advanced as tolerated and IV fluids were discontinued when patient started to drink adequate fluids by mouth. Patient was instructed to quit alcohol drinking and he was also instructed to follow outpatient alcohol detox program. Alcohol abuse: Considering patient's history of alcohol and his last drink was a day before coming to the hospital. Patient was put on CIWA protocol and scheduled Ativan 1.5 mg every 6 hourly. Patient was put on aspiration and seizure precautions. He was given vitamin thiamine, B12 and folic acid considering his history of alcohol drinking. Ativan was tapered later on and psychiatry consult was obtained. Considering patient's noncompliance to outpatient alcohol detox patient was offered inpatient psych placement but patient refused it. Patient was instructed to follow outpatient detox program. Hypokalemia and hypomagnesemia: Considering patient's history of alcohol drinking patient had hypokalemia and hypomagnesemia. Potassium and magnesium were repleted and patient remained asymptomatic. His potassium and magnesium levels were monitored during the hospital stay. Transient transaminitis: Patient's liver enzymes were elevated and he was admitted probably due to alcohol induced. His liver function test was monitored. Her liver enzyme came back towards normal range but they were still not evaluated that's why initially his lipid-lowering medication was stopped. Patient was instructed to follow his primary care physician to resume his lipid-lowering medication after checking his liver function tests. History of hypertension and lipidemia: We continued his hypertension medications including amlodipine and nebivolol but his lipid lowering medication was stopped considering his transaminitis. History of brain bilateral aneurysm: We didn't give him any anticoagulation including heparin or aspirin considering his history of brain aneurysms. Chronic pain syndrome/neuralgia: We continued gabapentin. DVT prophylaxis : Alps only in the setting of brain aneurysm Code status: Full code Allergies: Coded Allergies: NO KNOWN ALLERGIES (07/05/16) Pertinent Lab Results: Abdominal/pelvic CT scan on 05/30/2017: IMPRESSION: Gestations of pancreatitis. No drainable fluid collections. Hepatic steatosis. Small hiatal hernia. Chest x-ray on 05/31/2017: IMPRESSION: Low lung volume, otherwise unremarkable, unchanged since 09/26/2016. WBC count 6.2, hemoglobin 14.1, hematocrit 41.5, platelet count 204, sodium 141 , potassium 4.3, creatinine 0.8, BUN 13, magnesium 1.9 Disposition Summary Disposition Principal Diagnosis: Acute alcohol-induced pancreatitis. Alcohol detox Transaminitis Additional Diagnosis: Hypertension Chronic pain Discharge Disposition: home or self care Discharge Instructions General Discharge Information Code Status: Full Code Patient's Diet: Regular diet Patient's Activity: Self limited Follow-Up Instructions/Appts: Follow-up with your primary care physician in one week. Discussed with primary care physician to resume lipid-lowering medication. Follow-up with outpatient alcohol detox program. Please abstain from alcohol drinking. Medications at Discharge Discharge Medications: Stop taking the following medications: Pravastatin Sodium (Pravastatin Sodium) 80 MG TABLET ORAL DAILY Qty = 90 Continue taking these medications: Pantoprazole Sodium (Pantoprazole Sodium) 40 MG TABLET.DR 1 Tablet ORAL DAILY Qty = 180 Comments: Last Taken:06/05/17 Time:0652 AM PRILOSEC GIVEN Acetaminophen (Tylenol) 325 MG TABLET 2 Tablet ORAL EVERY SIX HOURS NEEDED as needed for PAIN Comments: NOT GIVEN IN HOSPITAL Folic Acid (Folic Acid) 1 MG TABLET 1 Milligram ORAL DAILY Qty = 15 Comments: Last Taken: 06/05/17 Time: 1145 AM Multivitamin (One Daily Multivitamin) 1 EACH TABLET 1 Tablet ORAL DAILY Qty = 15 Comments: NOT GIVEN IN HOSPITAL Thiamine HCl (Vitamin B-1) 100 MG TABLET 1 Tablet ORAL DAILY Qty = 15 Comments: Last Taken: 06/05/17 Time: 1145 AM Nebivolol HCl (Bystolic) 5 MG TABLET 1 Tablet ORAL DAILY Qty = 90 Comments: Last Taken:06/05/17 Time:1145 AM Amlodipine Besylate (Amlodipine Besylate) 10 MG TABLET 1 Tablet ORAL DAILY Comments: Last Taken: 06/05/17 Time: 1145 AM Gabapentin (Gabapentin) 300 MG CAPSULE 300 Milligram ORAL THREE TIMES DAILY Qty = 90 Comments: Last Taken: 06/05/17 Time: 5:15 PM Tramadol HCl (Tramadol HCl) 50 MG TABLET 50 Milligram ORAL EVERY SIX HOURS NEEDED as needed for PAIN SCALE 4-6 ( MODERATE) Qty = 12 Comments: Last Taken: 06/05/17 Time: 5:15 PM Start taking the following new medications: Tramadol HCl (Ultram) 50 MG TABLET 1 Tablet ORAL THREE TIMES A DAY NEEDED Qty = 15 No Refills Instructions: , Comments: Last Taken:06/05/17 Time:5:15 PM Ondansetron (Zuplenz) 4 MG FILM 1 Tablet ORAL EVERY 6 HOURS NEEDED as needed for nausea Qty = 15 No Refills Comments: Last Taken:06/05/17 Time:12:09 AM GEORGE GIVEN Copies To: Mikal BROWN,Esther Saldaña Attending MD Review Statement Documenting Attending: Luis F Plata MD Other Findings: The patient was seen and discussed with house staff. Patient to be discharged to home with plan for OP psych follow-up. He has had multiple admits for similar alcohol issues.
[2017-06-03 22:51] VITALS: BP 140/90
[2017-06-04] VITALS: BP 140/90
[2017-06-04 06:00] VITALS: BP 144/90
--- NOTE | 2017-06-04 06:35 | PN- Housestaff ---
See Addendum Subjective Follow-up For: Acute alcoholic pancreatitis Alcohol detox Transaminitis Subjective: No overnight events. Patient remained afebrile overnight. Seen and examined this morning. Patient denied any chest pain, short of breath, nausea, vomiting, chills, fever, abdominal pain dysuria. He is tolerating regular diet and no complaint of abdominal pain or nausea vomiting. If patient is tolerating food, may be discharged later times a day. Patient was asking for Dilaudid for pain control over the discharge. I told him to make an appointment with his primary care physician for pain medication and also continue outpatient and call detox program. Review of Systems Constitutional: Reports: no symptoms. EENTM: Reports: no symptoms. Cardiovascular: Reports: no symptoms. Respiratory: Reports: no symptoms. Gastrointestinal: Reports: see HPI. Genitourinary: Reports: no symptoms. Musculoskeletal: Reports: no symptoms. Neurological/Psychological: Reports: no symptoms. Objective Last 24 Hrs of Vital Signs/I&O Vital Signs Date Time Temp Pulse Resp B/P B/P Pulse O2 O2 Flow FiO2 Mean Ox Delivery Rate 06/04 0639 97.5 73 20 144/90 94 06/04 0600 97.5 73 18 144/90 06/04 0000 98.3 71 18 140/90 06/03 2251 98.3 71 18 140/90 93 Room Air 06/03 1430 98.0 78 20 116/78 97 Room Air 06/03 1134 72 114/80 06/03 1134 72 114/80 Intake & Output 06/04 0800 06/04 0000 06/03 1600 Intake Total 100 480 720 Output Total 1000 450 600 Balance -900 30 120 Intake, Oral 100 480 720 Output, Urine 1000 450 600 Physical Exam General Appearance: Alert, Oriented X3, Cooperative, No Acute Distress Skin Temp/Moisture Exam: Warm/Dry Sepsis Skin Exam (color): Normal for Ethnicity HEENT: Atraumatic, PERRLA, EOMI Neck: Supple Cardiovascular: Normal S1, Normal S2 Lungs: Clear to Auscultation Abdomen: Soft, No Tenderness Neurological: Normal Speech, Strength at 5/5 X4 Ext, Normal Tone, Sensation Intact Extremities: No Edema Assessment/Plan Assessment: 62 yo M with h/o alcohol dependence, pancreatitis, HTN, brain aneurysm (2011), viral meningitis (2013), anxiety/ depression, right ear hearing loss, renal cysts, last admitted to [facility] (September 2016) for pancreatitis and alcohol withdrawal is here for evaluation of sudden onset epigastric pain radiating to the back, associated with multiple episodes of nausea and vomiting. 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 No h/o alcohol withdrawal seizures. Admit the patient to the [facility] Acute alcohol-induced pancreatitis:(improving) -Adequate pain control with po Dilaudid. -Zofran as needed for nausea vomiting. -po Protonix -Abdominal pain is under control with pain medication. -Patient is tolerating regular food. -A patient remained stable he can be discharged later on the day. Alcohol abuse/dependence: -Ativan as per [facility] protocol -Patient is on ativan 1 mg every 6 hourly we will change it to 0.5 mg every 6 hourly tomorrow. -Maintain seizure and aspiration precautions -By mouth thiamine and vitamin B12 and folic acid tomorrow. Hypokalemia and hypomagnesemia:(resolved) -Probably due to alcohol abuse. -We will repeat potassium and magnesium and then follow the labs. Transient transaminitis:(improving) -likely alcohol induced -His Lfts are getting better. -Hold statin. History of hypertension and lipidemia: -we will continue amlodipine and nebivolol. -Holding lipitor for transaminitis History of brain bilateral aneurysm: -Hold any pharmacological anticoagulation. History of major depression: -Patient has been off Zoloft since February 2017, wants to be seen by a psychiatrist. -Obtain psych consult in the morning. Chronic pain syndrome/neuralgia: -Continue gabapentin. DVT prophylaxis : Alps only in the setting of brain aneurysm Code status: Full code Problem List: 1. Transaminitis 2. Pancreatitis, alcoholic, acute 3. Alcohol withdrawal Pain Ratin Pain Location: none Pain Goal: Remain pain free Pain Plan: tylenol for mild pain Dilaudid for severe pain Tomorrow's Labs & Rationales: none
[2017-06-04 06:39] VITALS: BP 144/90
[2017-06-04 14:23] VITALS: BP 130/82
[2017-06-04 23:27] VITALS: BP 128/82
[2017-06-05 06:16] VITALS: BP 116/86
--- NOTE | 2017-06-05 08:46 | PN- Housestaff ---
Grecia BROWN,Rebeka 06/05/17 0846: Subjective Follow-up For: Acute alcoholic pancreatitis Alcohol detox Transaminitis Subjective: Patient is a seen and examined at bedside, denies any complaints except for mild abdominal pain, no overnight events, was able to tolerate regular diet yesterday , anxious to go home, he got his last dose of Ativan taper on 06/04 Review of Systems Constitutional: Denies: no symptoms. Cardiovascular: Denies: no symptoms. Respiratory: Denies: no symptoms. Gastrointestinal: Reports: abdominal pain. Objective Last 24 Hrs of Vital Signs/I&O Vital Signs Date Time Temp Pulse Resp B/P B/P Pulse O2 O2 Flow FiO2 Mean Ox Delivery Rate 06/05 0616 98.6 85 20 116/86 94 06/04 2327 97.5 73 20 128/82 96 Room Air 06/04 1423 97.6 77 20 130/82 91 Room Air 06/04 1120 82 114/88 06/04 1118 82 114/88 Intake & Output 06/05 1600 06/05 0800 06/05 0000 Intake Total 120 120 Output Total 300 1000 Balance -180 -880 Intake, Oral 120 120 Number 1 Bowel Movements Output, Urine 300 1000 Physical Exam General Appearance: Alert, Oriented X3, Cooperative, No Acute Distress Skin: No Rashes, No Breakdown, No Significant Lesion HEENT: Atraumatic, PERRLA, EOMI Cardiovascular: Regular Rate, Normal S1, Normal S2, No Murmurs Lungs: Clear to Auscultation, Normal Air Movement Abdomen: Normal Bowel Sounds, Soft, No Tenderness Extremities: No Clubbing, No Cyanosis, No Edema Vascular: Normal Pulses Assessment/Plan Assessment: 62 yo M with h/o alcohol dependence, pancreatitis, HTN, brain aneurysm (2011), viral meningitis (2012), anxiety/ depression, right ear hearing loss, renal cysts, last admitted to [facility] (September 2016) for pancreatitis and alcohol withdrawal is here for evaluation of sudden onset epigastric pain radiating to the back, associated with multiple episodes of nausea and vomiting. 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 Admit the patient to the [facility] Acute alcohol-induced pancreatitis:(improving) -Adequate pain control with po Dilaudid. -Zofran as needed for nausea vomiting. -po Protonix -Abdominal pain is under control with pain medication. -Patient is tolerating regular food. -A patient remained stable he can be discharged later on the day. Alcohol abuse/dependence: -Ativan as per [facility] protocol -Patient finished Ativan taper yesterday -Maintain seizure and aspiration precautions -By mouth thiamine and vitamin B12 and folic acid tomorrow. Hypokalemia and hypomagnesemia:(resolved) -Probably due to alcohol abuse. -We will repeat potassium and magnesium and then follow the labs. Transient transaminitis:(improving) -likely alcohol induced -His Lfts are getting better. -Hold statin. History of hypertension and lipidemia: -we will continue amlodipine and nebivolol. -Holding lipitor for transaminitis History of brain bilateral aneurysm: -Hold any pharmacological anticoagulation. History of major depression: -Patient has been off Zoloft since February 2017, wants to be seen by a psychiatrist. -Obtain psych consult in the morning. Chronic pain syndrome/neuralgia: -Continue gabapentin. Patient is stable and and might be discharged home today DVT prophylaxis : Alps only in the setting of brain aneurysm Code status: Full code Problem List: 1. Transaminitis 2. Pancreatitis, alcoholic, acute 3. Alcohol withdrawal Pain Ratin Pain Location: UPPER ABDOMEN Pain Goal: Pain 4 or less Pain Plan: PER PATHWAY Tomorrow's Labs & Rationales: CBC EDWIN Mohamud MD,Mika 06/05/17 1539: Attending MD Review Statement Attending Statement Attending MD Statement: examined this patient, discuss w/resident/PA/FINANCIAL SUPERVISOR, agreed w/resident/PA/FINANCIAL SUPERVISOR, discussed with nursing Attending Assessment/Plan: The patient was seen and discussed with house staff. Agree with advancing diet and discontinuing ativan. Discontinued dilaudid and will send the patient home on 5 days of tramadol for the acute pancreatitis pain. Abdominal pain is getting better, no nausea vomiting. Tolerating diet very well. Ambulating in the hallways without any issues. No signs or symptoms of withdrawal. Will follow up with PCP and GI as necessary.
[2017-06-05 15:06] VITALS: BP 120/64
[2017-06-05] MEDS ORDERED: ULTRAM50 M1 PO ×2 (15:36→15:38)
[2017-06-05] MEDS ORDERED: ZUPLENZ4 MG PO (15:42)
== END 2017-06-05 18:50 | DRG 439 ==
LOC: ERH 18:59 → ERHI 21:30 → 2NB 21:30 → ERHI 05-31 12:18 → ENRESERV 05-31 12:55 → ENTRNSPT 05-31 14:22 → 2NB 05-31 14:43 → CMPTRNSPT 05-31 14:54 → ENPENDDIS 06-05 16:02 → ENTRNSPT 06-05 18:21 → EDTRNSPT 06-05 18:34 → EDTRNSPTSTS 06-05 18:34 → 2NB 06-05 18:50 → CMPTRNSPT 06-05 18:52
PROVIDERS: Physician Assistant Medical; Student in an Organized Health Care Education/Training Program
DX: K85.20 Alcohol induced acute pancreatitis without necrosis or infection (principal); F10.239 Alcohol dependence with withdrawal, unspecified; E83.42 Hypomagnesemia; K70.9 Alcoholic liver disease, unspecified; F10.10 Alcohol abuse, uncomplicated; N28.1 Cyst of kidney, acquired; I10 Essential (primary) hypertension; H91.92 Unspecified hearing loss, left ear; E87.6 Hypokalemia; R74.0 Nonspecific elevation of levels of transaminase and lactic acid dehydrogenase [LDH]; G89.4 Chronic pain syndrome; M79.2 Neuralgia and neuritis, unspecified; F41.1 Generalized anxiety disorder; F31.9 Bipolar disorder, unspecified; F40.00 Agoraphobia, unspecified; R09.02 Hypoxemia
CPT/HCPCS: 2NSBP; ERO; 36415; 71045; 74176; 80307; 82436; 93005; 93010; 96365; 96366; 96375; 97116-GO; 99233; G0480; J2405; J3101; J3490; J7120; Q2036